=== PATIENT | female | born 2000 | race Caucasian/White ===

== ENCOUNTER 2022-10-10 14:59 | Inpatient (IN) ==
--- NOTE | 2022-10-10 15:08 | ED Triage Note ---
Date of Service October 10, 2022 History of Present Illness This patient was briefly evaluated while in triage. An abbreviated physical exam was performed. This patient is a 22-year-old Female who presents to the ED for evaluation of lower abdominal pain with vomiting and diarrhea. Symptoms started yesterday. Reports chills, no fevers. Denies sick contacts or changes in diet. LMP 1 week ago. Denies chance of . Physical Exam Constitutional: alert and oriented x3. no acute distress. HEENT: normocephalic, atraumatic. normal conjunctiva.EOM's grossly intact. Respiratory: lungs are clear to auscultation without wheezes, rhonchi, or rales bilaterally. equal chest rise. normal respiratory effort, no accessory muscle use. Cardiovascular: normal heart sounds without murmur. regular rate and rhythm. GI: abdomen is soft, nondistended. RLQ tenderness. No palpable masses. No rebound tenderness or guarding. No CVA tenderness Peripheral vascular: extremities warm and well perfused Psych:appropriate mood and affect. Initial orders for labs and / or imaging were placed and patient was placed in the waiting area until a bed is available. Please see further documentation for the full ED course.
[2022-10-10] MEDS ORDERED: MoRPHine SULFATE 4 MG/ML 1 ML CARP\\VIAL IV STA ×2 (15:57→17:54)
[2022-10-10] MEDS ORDERED: SODIUM CHLORIDE 0.9% 1000ML 1,000 ML IV ONE (15:57)
[2022-10-10] MEDS ORDERED: ONDANSETRON INJ 2 MG/ML 2 ML VIAL IV STA (15:57)
--- NOTE | 2022-10-10 16:00 | Emergency Department Note ---
Impression & Plan Acute perforated appendicitis, Right lower quadrant abdominal pain, Leukocytosis ED Provider Note HISTORY OF PRESENT ILLNESS: Patient is a 22-year-old female presenting with right lower quadrant abdominal pain, vomiting and diarrhea. Patient reports she started having vomiting and loose stools starting yesterday. Has developed sharp, constant pain in her right lower quadrant. Denies any history of abdominal surgeries. Reports has been unable to tolerate oral intake in the last 24 hours. Denies any chest pain or shortness of breath. Denies any dysuria or hematuria. ROS: as above PHYSICAL EXAM: Constitutional: Patient appears in no acute distress. HENT: Head: Normocephalic and atraumatic. Eyes: EOMI, PERRL Mouth/Throat: Mucous membranes dry Neck: Trachea midline. Neck supple. Cardiovascular: RRR, No murmurs, rubs or gallops. Intact distal pulses. Pulmonary/Chest: No respiratory distress. Breath sounds clear and equal bilaterally. No wheezes or rales. Abdominal: BS +. Abdomen soft, no rebound or guarding. RLQ TTP Musculoskeletal: No edema, tenderness or deformity noted. Skin: Warm and dry. No rash, erythema, pallor or cyanosis Neurological: Alert and keenly responsive. CN II-XII grossly intact, moving all extremities equally and fully. MDM: - Vitals signs showed borderline tachycardia - History obtained via patient. Patient presents with right lower quadrant abdominal pain, vomiting and diarrhea. Symptoms started yesterday. Has been unable to tolerate oral intake in the last 24 hours. Locates pain to the right lower quadrant and describes it is constant in nature. - Chronic conditions affecting care: depression - Differential diagnoses include, but are not limited to: appendicitis; diverticulitis; ectopic ; ovarian cyst; ovarian torsion; ureteral calculi - Order placed for continuous cardiac monitoring. At this time, monitor showed rate of 98 bpm with normal sinus rhythm, per my interpretation. - External medical records reviewed. Showed [EMS sheet, outpt notes, outpt imaging] - Laboratory workup interpreted by myself showed leukocytosis (WBC 21.18) with left shift; hypokalemia (K 3.4); normal lipase - CT abdomen/pelvis with IV contrast showed perforated appendicitis. - Patient started on IV zosyn. - Given 1L NS, 4 mg IV morphine and 4 mg IV zofran for symptomatic management. On reassessment, pain is coming back. Given 50 mcg IV fentanyl. - Discussed case with general surgeon photovoltaic fabrication technician, Dr. Lara. Plans to take patient to OR. ASSESSMENT AND PLAN: Diagnosis: RLQ abdominal pain; leukocytosis; perforated appendicitis Plan: to OR Past Med/Surg History Medical History No chronic diseases present Surgical History No significant past surgical history Social History Smoking Status: Never smoker Preferred Language: Spanish Feels Safe at Home: Yes Allergies Allergies Allergy/AdvReac Type Severity Reaction Status Date / Time No Known Allergies Allergy Unverified 10/10/22 15:55 Home Meds Home Medications Medication Instructions Recorded Confirmed bupropion HCl 150 mg 24 hr tablet, 150 mg PO QAM 10/10/22 10/10/22 extended release duloxetine 20 mg capsule,delayed 20 mg PO BID 10/10/22 10/10/22 release hydroxyzine pamoate 25 mg capsule 25 mg PO HS 10/10/22 10/10/22 Results & Data (ED) Vital Signs Vital Signs - 24 hr 10/10/22 15:05 10/10/22 15:08 10/10/22 15:08 Temperature 37.5 C Temperature Source Temporal Artery Scan Pulse Rate 92 H 80 Pulse Rate [Apical] 76 Respiratory Rate 20 18 18 Respiratory Effort / Characteristics Non-Labored Spontaneous Respiratory Depth Normal Blood Pressure 127/79 Blood Pressure [Left Arm] 103/78 Blood Pressure Mean 95 Blood Pressure Mean [Left Arm] 86 Pulse Oximetry 97 99 98 Oxygen Delivery Method Room Air Sepsis New/Unexplained Change in Mental Status No Sepsis Action Taken by Nursing No Action Required 10/10/22 15:09 10/10/22 17:25 10/10/22 16:18 Temperature Temperature Source Pulse Rate 80 Pulse Rate [Apical] 77 73 Respiratory Rate 18 18 Respiratory Effort / Characteristics Respiratory Depth Blood Pressure Blood Pressure [Left Arm] 124/72 124/72 Blood Pressure Mean Blood Pressure Mean [Left Arm] 89 89 Pulse Oximetry 99 99 Oxygen Delivery Method Room Air Sepsis New/Unexplained Change in Mental Status Sepsis Action Taken by Nursing Laboratory Data 10/10/22 15:27 10/10/22 15:27 Lab Results 10/10/22 10/10/22 10/10/22 Range/Units 15:09 15:27 15:27 WBC 21.18 H (4.8-10.8) K/ul RBC 4.29 (4.20-5.40) M/uL Hgb 13.0 (12.0-16.0) g/dl Hct 38.4 (37.0-47.0) % MCV 89.5 (80.0-100.0) fL MCH 30.3 (25.0-34.0) pg MCHC 33.9 (32.0-36.0) g/dL RDW Std Deviation 39.2 (36.4-46.3) fL RDW Coeff of Janny 12.1 (11.5-14.5) % Plt Count 279 (130-400) K/uL MPV 11.4 (9.4-12.4) fL Immature Gran % (Auto) 0.5 % Neut % (Auto) 87.7 % Lymph % (Auto) 5.8 % Irion % (Auto) 5.8 % Eos % (Auto) 0.0 % Baso % (Auto) 0.2 % Neut # (Auto) 18.59 H (1.40-6.50) K/uL Lymph # (Auto) 1.22 (1.2-3.4) K/uL Irion # (Auto) 1.22 H (0.11-0.59) K/uL Eos # (Auto) 0.00 (0-0.50) K/uL Baso # (Auto) 0.04 (0-0.2) K/uL Immature Gran # (Auto) 0.11 (0.01-0.20) K/uL Sodium 135 L (136-145) mmol/L Potassium 3.4 L (3.5-5.1) mmol/L Chloride 102 (98-107) mmol/L Carbon Dioxide 24 (21-32) mmol/L Anion Gap 9 (3-11) BUN 9 (6-23) mg/dl Creatinine 0.81 (0.6-1.2) mg/dl Est Cr Clr Drug Dosing 111.7 ml/min Est GFR ( Amer) 118.6 ml/min Est GFR (Non-Af Amer) 102.4 ml/min BUN/Creatinine Ratio 11.1 (10-20) Glucose 98 (70-99(Fasting)) mg/dl Calcium 9.4 (8.6-10.3) mg/dl Total Bilirubin 0.7 (0.2-1.0) mg/dl AST 17 (13-39) U/L ALT 14 (7-52) U/L Alkaline Phosphatase 68 (34-104) U/L Total Protein 7.9 (6.0-8.3) gm/dl Albumin 4.7 (3.4-5.0) gm/dl Globulin 3.2 (2.5-4.0) gm/dl Albumin/Globulin Ratio 1.5 (0.9-2) Lipase 36 (11-82) U/L Urine Color Urine Appearance (Clear) Urine pH (4.5-7.5) Ur Specific Kendrick (1.000-1.030) Urine Protein (Negative) Urine Glucose (UA) (Negative) Urine Ketones (Negative) Urine Blood (Negative) Urine Nitrite (Negative) Urine Bilirubin (Negative) Urine Urobilinogen (Negative) Ur Leukocyte Esterase (Negative) Urine WBC (Auto) (0-5) /hpf Urine RBC (Auto) (0-4) /hpf U Hyaline Cast (Auto) (0-5) /lpf U Epithel Cells (Auto) (0-5) /lpf Urine Bacteria (Auto) (Negative) POC Ur Test NEG (NEG) 10/10/22 Range/Units 17:05 WBC (4.8-10.8) K/ul RBC (4.20-5.40) M/uL Hgb (12.0-16.0) g/dl Hct (37.0-47.0) % MCV (80.0-100.0) fL MCH (25.0-34.0) pg MCHC (32.0-36.0) g/dL RDW Std Deviation (36.4-46.3) fL RDW Coeff of Janny (11.5-14.5) % Plt Count (130-400) K/uL MPV (9.4-12.4) fL Immature Gran % (Auto) % Neut % (Auto) % Lymph % (Auto) % Irion % (Auto) % Eos % (Auto) % Baso % (Auto) % Neut # (Auto) (1.40-6.50) K/uL Lymph # (Auto) (1.2-3.4) K/uL Irion # (Auto) (0.11-0.59) K/uL Eos # (Auto) (0-0.50) K/uL Baso # (Auto) (0-0.2) K/uL Immature Gran # (Auto) (0.01-0.20) K/uL Sodium (136-145) mmol/L Potassium (3.5-5.1) mmol/L Chloride (98-107) mmol/L Carbon Dioxide (21-32) mmol/L Anion Gap (3-11) BUN (6-23) mg/dl Creatinine (0.6-1.2) mg/dl Est Cr Clr Drug Dosing ml/min Est GFR ( Amer) ml/min Est GFR (Non-Af Amer) ml/min BUN/Creatinine Ratio (10-20) Glucose (70-99(Fasting)) mg/dl Calcium (8.6-10.3) mg/dl Total Bilirubin (0.2-1.0) mg/dl AST (13-39) U/L ALT (7-52) U/L Alkaline Phosphatase (34-104) U/L Total Protein (6.0-8.3) gm/dl Albumin (3.4-5.0) gm/dl Globulin (2.5-4.0) gm/dl Albumin/Globulin Ratio (0.9-2) Lipase (11-82) U/L Urine Color Yellow Urine Appearance Cloudy A (Clear) Urine pH 7.0 (4.5-7.5) Ur Specific Kendrick 1.019 (1.000-1.030) Urine Protein Negative (Negative) Urine Glucose (UA) Negative (Negative) Urine Ketones 3+ H (Negative) Urine Blood Negative (Negative) Urine Nitrite Negative (Negative) Urine Bilirubin Negative (Negative) Urine Urobilinogen Negative (Negative) Ur Leukocyte Esterase 1+ H (Negative) Urine WBC (Auto) 10-30 H (0-5) /hpf Urine RBC (Auto) 0-4 (0-4) /hpf U Hyaline Cast (Auto) 1-5 (0-5) /lpf U Epithel Cells (Auto) >30 H (0-5) /lpf Urine Bacteria (Auto) 2+ H (Negative) POC Ur Test (NEG) Administered Medications Discontinued Medications Fentanyl Citrate (Fentanyl Citrate Pf 100 Mcg/2 Ml Vial) 50 mcg IV NOW ONE Stop: 10/10/22 17:09 Last Admin: 10/10/22 17:21 Dose: 50 mcg Documented By: LORIN Sodium Chloride (Nss 1000ml) 1,000 mls @ 999 mls/hr IV .Q1H1M ONE Stop: 10/10/22 16:57 Last Infusion: 10/10/22 17:35 Dose: 0 mls/hr Documented By: Admin: 10/10/22 16:01 Dose: 999 mls/hr Documented By: LORIN Piperacillin Sod/Tazobactam Sod (Zosyn) 4.5 gm in 120 mls @ 240 mls/hr IV NOW ONE Stop: 10/10/22 17:29 Last Infusion: 10/10/22 17:22 Dose: 0 mls/hr Documented By: Admin: 10/10/22 17:04 Dose: 240 mls/hr Documented By: LORIN Ioversol (Optiray 320 100ml) 83 ml IV ONCE ONE Stop: 10/10/22 16:43 Last Admin: 10/10/22 16:42 Dose: 83 ml Documented By: EMILIANO Morphine Sulfate (Morphine Sulfate 4 Mg/Ml 1 Ml Carp\Vial) 4 mg IV NOW STA Stop: 10/10/22 15:58 Last Admin: 10/10/22 16:01 Dose: 4 mg Documented By: LORIN Morphine Sulfate (Morphine Sulfate 4 Mg/Ml 1 Ml Carp\Vial) 4 mg IV NOW STA Stop: 10/10/22 17:55 Last Admin: 10/10/22 17:57 Dose: 4 mg Documented By: LORIN Ondansetron HCl (Ondansetron Inj 2 Mg/Ml 2 Ml Vial) 4 mg IV NOW STA Stop: 10/10/22 15:58 Last Admin: 10/10/22 16:01 Dose: 4 mg Documented By: LORIN Imaging Data Radiologist's Impression: Abdomen/Pelvis CT 10/10/22 15:57 CT SCAN OF THE ABDOMEN AND PELVIS WITH IV CONTRAST CLINICAL HISTORY: Right lower quadrant abdominal pain. Nausea and vomiting. Diarrhea. COMPARISON STUDY: Abdominal radiograph dated 04/23/2022. TECHNIQUE: Following the IV administration of 83 cc of Optiray 320, CT scan of the abdomen and pelvis is performed from the lung bases to the proximal femora. Images are reviewed in the axial, sagittal, and coronal planes. IV contrast was administered without complication. A dose lowering technique was utilized adhering to the principles of ALARA. CT DOSE: 926.50 mGy.cm FINDINGS: Lung bases: The heart is normal in size and without pericardial effusion. The lung bases are clear. Liver: The contrast-enhanced liver is normal in size, contour, and attenuation. Fatty infiltration is seen adjacent to the gallbladder fossa. There is no intrahepatic biliary ductal dilatation. The hepatic veins and portal veins are patent. Gallbladder: Unremarkable. Spleen: Normal in size and attenuation. Pancreas: Unremarkable. Adrenal glands: Unremarkable. Kidneys: The contrast enhanced kidneys are normal in size and without hydronephrosis. The kidneys enhance symmetrically. Abdominal vasculature: The abdominal aorta is normal in course and caliber. Bowel: There is no bowel obstruction. A calcified appendicolith is seen on image #244. The distal appendix is distended and fluid-filled, measuring up to 1.8 cm seen on image #257. The wall is thickened and hyperemic and there is surrounding inflammation and fluid. Findings are consistent acute appendicitis. There is discontinuity at the tip of the appendix seen on axial image #275. Findings are suspicious for perforation. There is free fluid in the presacral region with peritoneal thickening and enhancement. No organized/drainable fluid collection is seen to indicate abscess. Mild wall thickening of the sigmoid colon is likely related to adjacent appendicitis. Peritoneum: There is no intraperitoneal free air or abdominal ascites. There is a small fat-containing umbilical hernia. Lymphadenopathy: None. Pelvic viscera: The bladder and uterus are normal as visualized. There are bilateral ovarian follicles. An involuting follicle is suggested on the right. Free fluid is seen in the cul-de-sac. Skeletal structures: No lytic or blastic lesions are seen. IMPRESSION: 1. Severe acute appendicitis. 2. Findings are highly suspicious for perforation. 3. No intraperitoneal free air is identified. No organized/drainable fluid collection is seen to indicate abscess. 4. There is nonspecific free fluid in the pelvis with mild peritoneal thickening and enhancement. 5. Mild wall thickening of the sigmoid colon is likely related to adjacent appendicitis and surrounding inflammation. ACT 112: Negative or not required by law. Electronically signed by: Manuel Gee M.D. 10/10/2022 4:54 PM Discharge Plan Visit Data Chief Complaint: Abdominal Pain Stated Complaint: VOMITING,LOWER ABDOMINAL PAIN ED Provider: Dana Donohue Discharge Problem: Acute perforated appendicitis, Right lower quadrant abdominal pain, Leukocytosis Forms Stand Alone Forms: [facility] Prescriptions Prescriptions: No Action hydroxyzine pamoate 25 mg capsule 25 mg PO HS Rx Instructions: take 30 minutes before betime bupropion HCl 150 mg tablet extended release 24 hr 150 mg PO QAM duloxetine 20 mg capsule,delayed release(DR/EC) 20 mg PO BID Referrals Referrals: María May CRNP [Outside Practitioners] -
[2022-10-10 16:21] LABS: Basophils # (auto) 0.04 K/uL (0-0.2); Basophils % (auto) 0.2 %; Hematocrit (blood only) 38.4 % (37.0-47.0); Immature Granulocytes # (auto) 0.11 K/uL (0.01-0.20); Immature Granulocytes % (auto) 0.5 %; Lymphocytes # (auto) 1.22 K/uL (1.2-3.4); Lymphocytes % (auto) 5.8 %; Mean Corpuscular Hemoglobin 30.3 pg (25.0-34.0); Mean Corpuscular Hgb Conc 33.9 g/dL (32.0-36.0); Mean Corpuscular Volume 89.5 fL (80.0-100.0); Mean Platelet Volume 11.4 fL (9.4-12.4); Monocytes # (auto) 1.22 K/uL (0.11-0.59); Monocytes % (auto) 5.8 %; Neutrophils # (auto) 18.59 K/uL (1.40-6.50); Neutrophils % (auto) 87.7 %; Platelet Count 279 K/uL (130-400); RDW Coefficient of Variation 12.1 % (11.5-14.5); RDW Standard Deviation 39.2 fL (36.4-46.3); Red Blood Count 4.29 M/uL (4.20-5.40); White Blood Count 21.18 K/ul (4.8-10.8)
[2022-10-10 16:25] LABS: Albumin Globulin Ratio 1.5 (0.9-2); Albumin Level 4.7 gm/dl (3.4-5.0); BUN Creatinine Ratio 11.1 (10-20); Bilirubin,Total 0.7 mg/dl (0.2-1.0); Calcium 9.4 mg/dl (8.6-10.3); Creatinine Clr Calc Pharmacy 111.7 ml/min; Est GFR (African American) 118.6 ml/min; Est GFR (Non-African American) 102.4 ml/min; Globulin 3.2 gm/dl (2.5-4.0); Potassium 3.4 mmol/L (3.5-5.1); Total Protein 7.9 gm/dl (6.0-8.3)
[2022-10-10] MEDS ORDERED: OPTIRAY 320 100ml IV ONE (16:42)
--- NOTE | 2022-10-10 16:57 | CT Scan Report ---
CT SCAN OF THE ABDOMEN AND PELVIS WITH IV CONTRAST CLINICAL HISTORY: Right lower quadrant abdominal pain. Nausea and vomiting. Diarrhea. COMPARISON STUDY: Abdominal radiograph dated 04/23/2022. TECHNIQUE: Following the IV administration of 83 cc of Optiray 320, CT scan of the abdomen and pelvi s is performed from the lung bases to the proximal femora. Images are reviewed in the axial, sagittal , and coronal planes. IV contrast was administered without complication. A dose lowering technique wa s utilized adhering to the principles of ALARA. CT DOSE: 926.50 mGy.cm FINDINGS: Lung bases: The heart is normal in size and without pericardial effusion. The lung bases are clear. Liver: The contrast-enhanced liver is normal in size, contour, and attenuation. Fatty infiltration is seen adjacent to the gallbladder fossa. There is no intrahepatic biliary ductal dilatation. The hepa tic veins and portal veins are patent. Gallbladder: Unremarkable. Spleen: Normal in size and attenuation. Pancreas: Unremarkable. Adrenal glands: Unremarkable. Kidneys: The contrast enhanced kidneys are normal in size and without hydronephrosis. The kidneys enh ance symmetrically. Abdominal vasculature: The abdominal aorta is normal in course and caliber. Bowel: There is no bowel obstruction. A calcified appendicolith is seen on image #244. The distal fred endix is distended and fluid-filled, measuring up to 1.8 cm seen on image #257. The wall is thickened and hyperemic and there is surrounding inflammation and fluid. Findings are consistent acute appendi citis. There is discontinuity at the tip of the appendix seen on axial image #275. Findings are suspi cious for perforation. There is free fluid in the presacral region with peritoneal thickening and enh ancement. No organized/drainable fluid collection is seen to indicate abscess. Mild wall thickening o f the sigmoid colon is likely related to adjacent appendicitis. Peritoneum: There is no intraperitoneal free air or abdominal ascites. There is a small fat-containin g umbilical hernia. Lymphadenopathy: None. Pelvic viscera: The bladder and uterus are normal as visualized. There are bilateral ovarian follicle s. An involuting follicle is suggested on the right. Free fluid is seen in the cul-de-sac. Skeletal structures: No lytic or blastic lesions are seen. IMPRESSION: 1. Severe acute appendicitis. 2. Findings are highly suspicious for perforation. 3. No intraperitoneal free air is identified. No organized/drainable fluid collection is seen to lilia minna abscess. 4. There is nonspecific free fluid in the pelvis with mild peritoneal thickening and enhancement. 5. Mild wall thickening of the sigmoid colon is likely related to adjacent appendicitis and surroundi ng inflammation. ACT 112: Negative or not required by law. Electronically signed by: Manuel Gee M.D. 10/10/2022 4:54 PM
[2022-10-10] MEDS ORDERED: PIPERACILLIN/TAZOBACTAM 4.5 GM/120 ML BAG IV ONE (17:00)
[2022-10-10] MEDS ORDERED: fentaNYL citrate PF 100 MCG/2 ML VIAL IV ONE (17:08)
[2022-10-10 17:44] LABS: Appearance Urine Cloudy (Clear); Bacteria Urine Automated 2+ (Negative); Bilirubin Urine Negative (Negative); Blood Urine Negative (Negative); Color Urine Yellow; Epithelial Cell Urine Auto >30 /lpf (0-5); Glucose Urine UA Negative (Negative); Ketones Urine 3+ (Negative); Leukocyte Esterase Urine 1+ (Negative); Nitrite Urine Negative (Negative); Protein Urine Negative (Negative); RBC Urine Automated 0-4 /hpf (0-4); Specific Gravity Urine 1.019 (1.000-1.030); Urobilinogen Urine Negative (Negative)
--- NOTE | 2022-10-10 18:26 | Surgery Consultation ---
Date of Consultation October 10, 2022 Assessment & Plan (1) Acute perforated appendicitis: assessment: patient is a 22 year-old female who presented to ER with 2.5 days history RLQ pain with nausea and vomiting, WBC 21,000. CT scan diagnosis- severe acute appendicitis with appendicolith and perforation. IMP: severe acute appendicitis with perforation, peritenontitis Plan: based on patient's H/P, labs and CT scan finding. I recommend to do laparoscopic appendectomy, possible open, discussed with patient about benefits, risks and alternatives of the surgery, the risks may include but not limit such as - infection, bleeding, abscess, injury other organs, bowel obstruction, incisional hernia and sepsis. patient understood, she agreed with surgery, she signed informed consent. I answered all questions, pre-op iv antibiotic. History of Present Illness Reason for Consultation: acute appendicitis with perforation Requesting Physician: Debo Barker PA-C History of Present Illness CC: acute abdominal pain HPI: patient is a 22 year-old female with no significant past medical history, who presented to ER with 2.5 days history RLQ pain with nausea and vomiting loose stool, the pain is sharp at RLQ area. the pain is not radiate to back. last intake food early this morning. fever 37.5, patient denies chest pain, no chills, no dysuria. at ER labs- WBC 21,000. and CT scan, diagnosis-acute appendicitis with appendicolith, possible perforation. I reviewed the review of systems, no significant abnormal as HPI stated. Allergies Allergy/AdvReac Type Severity Reaction Status Date / Time No Known Allergies Allergy Unverified 10/10/22 15:55 Home Medications Medication Instructions Recorded Confirmed Type bupropion HCl 150 mg 24 hr tablet, 150 mg PO QAM 10/10/22 10/10/22 History extended release duloxetine 20 mg capsule,delayed 20 mg PO BID 10/10/22 10/10/22 History release hydroxyzine pamoate 25 mg capsule 25 mg PO HS 10/10/22 10/10/22 History Patient History Medical History No chronic diseases present Surgical History No significant past surgical history Social History Smoking Status: Never smoker Preferred Language: Irish Feels Safe at Home: Yes Physical Exam Constitutional: WD/WN, vitals as above in distress. severe pain at RLQ Eyes: PERRL, conjunctivae normal, anicteric sclerae Neck: trachea midline, no thyromegaly Respiratory: normal respiratory effort, lungs clear to auscultation Cardiovascular: RRR, no murmur, no edema Gastrointestinal (Abdomen): soft, significant tenderness at RLQ with rebound pain, no distend, BS -. Musculoskeletal: no cyanosis or clubbing, extremities motor strength 5/5 Skin: no rashes, warm and dry Neurologic: patellar DTR's 2+ bilat, sensation intact Psychiatric: A+Ox3, euthymic affect Results & Data Vital Signs (Past 12 Hours) Vital Signs Temp Pulse Pulse Resp BP BP Pulse Ox 10/10/22 16:18 80 10/10/22 17:25 73 18 124/72 99 10/10/22 15:09 77 18 124/72 99 10/10/22 15:08 80 18 98 10/10/22 15:08 76 18 103/78 99 10/10/22 15:05 37.5 C 92 H 20 127/79 97 O2 Del Method 10/10/22 16:18 10/10/22 17:25 Room Air 10/10/22 15:09 10/10/22 15:08 10/10/22 15:08 10/10/22 15:05 Room Air Laboratory Results Lab Results 10/10/22 10/10/22 10/10/22 Range/Units 15:09 15:27 15:27 WBC 21.18 H (4.8-10.8) K/ul RBC 4.29 (4.20-5.40) M/uL Hgb 13.0 (12.0-16.0) g/dl Hct 38.4 (37.0-47.0) % MCV 89.5 (80.0-100.0) fL MCH 30.3 (25.0-34.0) pg MCHC 33.9 (32.0-36.0) g/dL RDW Std Deviation 39.2 (36.4-46.3) fL RDW Coeff of Janny 12.1 (11.5-14.5) % Plt Count 279 (130-400) K/uL MPV 11.4 (9.4-12.4) fL Immature Gran % (Auto) 0.5 % Neut % (Auto) 87.7 % Lymph % (Auto) 5.8 % [place] % (Auto) 5.8 % Eos % (Auto) 0.0 % Baso % (Auto) 0.2 % Neut # (Auto) 18.59 H (1.40-6.50) K/uL Lymph # (Auto) 1.22 (1.2-3.4) K/uL [place] # (Auto) 1.22 H (0.11-0.59) K/uL Eos # (Auto) 0.00 (0-0.50) K/uL Baso # (Auto) 0.04 (0-0.2) K/uL Immature Gran # (Auto) 0.11 (0.01-0.20) K/uL Sodium 135 L (136-145) mmol/L Potassium 3.4 L (3.5-5.1) mmol/L Chloride 102 (98-107) mmol/L Carbon Dioxide 24 (21-32) mmol/L Anion Gap 9 (3-11) BUN 9 (6-23) mg/dl Creatinine 0.81 (0.6-1.2) mg/dl Est Cr Clr Drug Dosing 111.7 ml/min Est GFR ( Amer) 118.6 ml/min Est GFR (Non-Af Amer) 102.4 ml/min BUN/Creatinine Ratio 11.1 (10-20) Glucose 98 (70-99(Fasting)) mg/dl Calcium 9.4 (8.6-10.3) mg/dl Total Bilirubin 0.7 (0.2-1.0) mg/dl AST 17 (13-39) U/L ALT 14 (7-52) U/L Alkaline Phosphatase 68 (34-104) U/L Total Protein 7.9 (6.0-8.3) gm/dl Albumin 4.7 (3.4-5.0) gm/dl Globulin 3.2 (2.5-4.0) gm/dl Albumin/Globulin Ratio 1.5 (0.9-2) Lipase 36 (11-82) U/L Urine Color Urine Appearance (Clear) Urine pH (4.5-7.5) Ur Specific [place] (1.000-1.030) Urine Protein (Negative) Urine Glucose (UA) (Negative) Urine Ketones (Negative) Urine Blood (Negative) Urine Nitrite (Negative) Urine Bilirubin (Negative) Urine Urobilinogen (Negative) Ur Leukocyte Esterase (Negative) Urine WBC (Auto) (0-5) /hpf Urine RBC (Auto) (0-4) /hpf U Hyaline Cast (Auto) (0-5) /lpf U Epithel Cells (Auto) (0-5) /lpf Urine Bacteria (Auto) (Negative) POC Ur Test NEG (NEG) 10/10/22 Range/Units 17:05 WBC (4.8-10.8) K/ul RBC (4.20-5.40) M/uL Hgb (12.0-16.0) g/dl Hct (37.0-47.0) % MCV (80.0-100.0) fL MCH (25.0-34.0) pg MCHC (32.0-36.0) g/dL RDW Std Deviation (36.4-46.3) fL RDW Coeff of Janny (11.5-14.5) % Plt Count (130-400) K/uL MPV (9.4-12.4) fL Immature Gran % (Auto) % Neut % (Auto) % Lymph % (Auto) % [place] % (Auto) % Eos % (Auto) % Baso % (Auto) % Neut # (Auto) (1.40-6.50) K/uL Lymph # (Auto) (1.2-3.4) K/uL [place] # (Auto) (0.11-0.59) K/uL Eos # (Auto) (0-0.50) K/uL Baso # (Auto) (0-0.2) K/uL Immature Gran # (Auto) (0.01-0.20) K/uL Sodium (136-145) mmol/L Potassium (3.5-5.1) mmol/L Chloride (98-107) mmol/L Carbon Dioxide (21-32) mmol/L Anion Gap (3-11) BUN (6-23) mg/dl Creatinine (0.6-1.2) mg/dl Est Cr Clr Drug Dosing ml/min Est GFR ( Amer) ml/min Est GFR (Non-Af Amer) ml/min BUN/Creatinine Ratio (10-20) Glucose (70-99(Fasting)) mg/dl Calcium (8.6-10.3) mg/dl Total Bilirubin (0.2-1.0) mg/dl AST (13-39) U/L ALT (7-52) U/L Alkaline Phosphatase (34-104) U/L Total Protein (6.0-8.3) gm/dl Albumin (3.4-5.0) gm/dl Globulin (2.5-4.0) gm/dl Albumin/Globulin Ratio (0.9-2) Lipase (11-82) U/L Urine Color Yellow Urine Appearance Cloudy A (Clear) Urine pH 7.0 (4.5-7.5) Ur Specific [place] 1.019 (1.000-1.030) Urine Protein Negative (Negative) Urine Glucose (UA) Negative (Negative) Urine Ketones 3+ H (Negative) Urine Blood Negative (Negative) Urine Nitrite Negative (Negative) Urine Bilirubin Negative (Negative) Urine Urobilinogen Negative (Negative) Ur Leukocyte Esterase 1+ H (Negative) Urine WBC (Auto) 10-30 H (0-5) /hpf Urine RBC (Auto) 0-4 (0-4) /hpf U Hyaline Cast (Auto) 1-5 (0-5) /lpf U Epithel Cells (Auto) >30 H (0-5) /lpf Urine Bacteria (Auto) 2+ H (Negative) POC Ur Test (NEG) Diagnostic Findings CT SCAN OF THE ABDOMEN AND PELVIS WITH IV CONTRAST CLINICAL HISTORY: Right lower quadrant abdominal pain. Nausea and vomiting. Diarrhea. COMPARISON STUDY: Abdominal radiograph dated 04/23/2022. TECHNIQUE: Following the IV administration of 83 cc of Optiray 320, CT scan of the abdomen and pelvis is performed from the lung bases to the proximal femora. Images are reviewed in the axial, sagittal, and coronal planes. IV contrast was administered without complication. A dose lowering technique was utilized adhering to the principles of ALARA. CT DOSE: 926.50 mGy.cm FINDINGS: Lung bases: The heart is normal in size and without pericardial effusion. The lung bases are clear. Liver: The contrast-enhanced liver is normal in size, contour, and attenuation. Fatty infiltration is seen adjacent to the gallbladder fossa. There is no intrahepatic biliary ductal dilatation. The hepatic veins and portal veins are patent. Gallbladder: Unremarkable. Spleen: Normal in size and attenuation. Pancreas: Unremarkable. Adrenal glands: Unremarkable. Kidneys: The contrast enhanced kidneys are normal in size and without hydronephrosis. The kidneys enhance symmetrically. Abdominal vasculature: The abdominal aorta is normal in course and caliber. Bowel: There is no bowel obstruction. A calcified appendicolith is seen on image #244. The distal appendix is distended and fluid-filled, measuring up to 1.8 cm seen on image #257. The wall is thickened and hyperemic and there is surrounding inflammation and fluid. Findings are consistent acute appendicitis. There is discontinuity at the tip of the appendix seen on axial image #275. Findings are suspicious for perforation. There is free fluid in the presacral region with peritoneal thickening and enhancement. No organized/drainable fluid collection is seen to indicate abscess. Mild wall thickening of the sigmoid colon is likely related to adjacent appendicitis. Peritoneum: There is no intraperitoneal free air or abdominal ascites. There is a small fat-containing umbilical hernia. Lymphadenopathy: None. Pelvic viscera: The bladder and uterus are normal as visualized. There are bilateral ovarian follicles. An involuting follicle is suggested on the right. Free fluid is seen in the cul-de-sac. Skeletal structures: No lytic or blastic lesions are seen. IMPRESSION: 1. Severe acute appendicitis. 2. Findings are highly suspicious for perforation. 3. No intraperitoneal free air is identified. No organized/drainable fluid col lection is seen to indicate abscess. 4. There is nonspecific free fluid in the pelvis with mild peritoneal thickening and enhancement. 5. Mild wall thickening of the sigmoid colon is likely related to adjacent appendicitis and surrounding inflammation.
[2022-10-10] MEDS ORDERED: LIDOCAINE 2% 2 ML VIAL/AMP(20MG/ML) INFIL ONE ×2 (18:37→18:52)
[2022-10-10] MEDS ORDERED: ROCURONIUM BROMIDE 10 MG/ML 5 ML VIAL IV ONE (18:37)
[2022-10-10] MEDS ORDERED: fentaNYL citrate PF 100 MCG/2 ML VIAL ONE ×2 (18:37→18:52)
[2022-10-10] MEDS ORDERED: MIDAZOLAM HCL 1 MG/ML 2ML VIAL ONE ×2 (18:37→18:52)
[2022-10-10] MEDS ORDERED: DEXAMETHASONE SOD INJ 4 MG/ML VIAL ONE (18:37)
[2022-10-10] MEDS ORDERED: ONDANSETRON INJ 2 MG/ML 2 ML VIAL ONE (18:37)
[2022-10-10] MEDS ORDERED: PROPOFOL IV EMULSION 10 MG/ML 20 ML VIAL IV ONE ×2 (18:37→18:52)
--- NOTE | 2022-10-10 18:37 | History & Physical Bridge Note ---
Date of Service October 10, 2022 History & Physical Bridge Note I have examined the patient, reviewed the History & Physical and in the interval since the performance of the History & Physical I have noted the following changes of clinical significance: no changes noted
[2022-10-10] MEDS ORDERED: LIDOCAINE 1% LOCAL 20 ML VIAL ONE (18:52)
[2022-10-10] MEDS ORDERED: BUPIVACAINE 0.5 % 5 MG/1 ML MPF 30ML VIAL ONE (18:52)
[2022-10-10] MEDS ORDERED: BACITRACIN OINT 15 GM TUBE ONE (18:52)
[2022-10-10] MEDS ORDERED: VANCOMYCIN HCL 1000MG/20ML VIAL ONE (18:53)
--- NOTE | 2022-10-10 19:09 | Anesthesiology Consultation ---
Date of Service October 10, 2022 Assessment & Plan Chart Review Chart Review: Acceptable Risk for Surgery Consults Requested none History Surgery Operation Date: 10/10/22 19:20 Proposed Procedures p Operative Laparoscopic - Brittany Lara MD Height/Weight Height: 5 ft 6 in Weight: 74.8 kg Allergies Allergy/AdvReac Type Severity Reaction Status Date / Time No Known Allergies Allergy Unverified 10/10/22 18:47 Medications Home Medications Medication Instructions Recorded Confirmed Last Taken bupropion HCl 150 mg 24 hr tablet, 150 mg PO QAM 10/10/22 10/10/22 Unknown extended release duloxetine 20 mg capsule,delayed 20 mg PO BID 10/10/22 10/10/22 Unknown release NPO Date Last Intake of Fluids: 10/08/22 Time Last Intake of Fluids: 22:00 Date Last Intake of Solids: 10/10/22 Time Last Intake of Solids: 11:00 Last Intake of Solids Comment: SIPS Past Medical History Medical History No chronic diseases present Past Surgical History Surgical History (Updated 10/10/22 @ 18:50 by Tyson Blanchard RN) No significant past surgical history [place] teeth extracted Social History Smoking Status: Never smoker Physical Exam Vital Signs Last Vital Signs Temp 38.3 C H 10/10/22 18:40 Pulse 74 10/10/22 18:45 Resp 18 10/10/22 18:45 BP 101/72 10/10/22 18:45 Pulse Ox 98 10/10/22 18:45 O2 Del Method Room Air 10/10/22 18:45 Testing Laboratory Results 10/10/22 15:27 10/10/22 15:27 Urine Color Yellow 10/10/22 17:05 Urine Appearance Cloudy (Clear) A 10/10/22 17:05 Urine pH 7.0 (4.5-7.5) 10/10/22 17:05 Ur Specific [place] 1.019 (1.000-1.030) 10/10/22 17:05 Urine Protein Negative (Negative) 10/10/22 17:05 Urine Glucose (UA) Negative (Negative) 10/10/22 17:05 Urine Ketones 3+ (Negative) H 10/10/22 17:05 Urine Nitrite Negative (Negative) 10/10/22 17:05 Ur Leukocyte Esterase 1+ (Negative) H 10/10/22 17:05 Urine WBC (Auto) 10-30 /hpf (0-5) H 10/10/22 17:05 Urine RBC (Auto) 0-4 /hpf (0-4) 10/10/22 17:05 U Hyaline Cast (Auto) 1-5 /lpf (0-5) 10/10/22 17:05 U Epithel Cells (Auto) >30 /lpf (0-5) H 10/10/22 17:05 Urine Bacteria (Auto) 2+ (Negative) H 10/10/22 17:05 10/10/22 15:09 POC Ur Test NEG
[2022-10-10] MEDS ORDERED: ATROPINE SULFATE 0.1 MG/ML 10ML SYR IV PRN (19:10)
[2022-10-10] MEDS ORDERED: ONDANSETRON INJ 2 MG/ML 2 ML VIAL IV PRN ×2 (19:10→22:27)
[2022-10-10] MEDS ORDERED: fentaNYL citrate PF 100 MCG/2 ML VIAL IV PRN (19:10)
[2022-10-10] MEDS ORDERED: HYDROmorphone INJ 2 MG/ML SYR/VIAL IV PRN (19:10)
[2022-10-10] MEDS ORDERED: PROMETHAZINE HCL 12.5 MG in SODIUM CHLORIDE 0.9% 50 ML IV PRN (19:10)
[2022-10-10] MEDS ORDERED: ePHEDrine sulfate 50 MG/ML AMP IV PRN (19:10)
[2022-10-10] MEDS ORDERED: NEOSTIGMINE METHYLSULFATE 1 MG/ML 10ML VIAL ONE (21:00)
[2022-10-10] MEDS ORDERED: GLYCOPYRROLATE 0.2 MG/ML VIAL ONE (21:00)
--- NOTE | 2022-10-10 21:13 | Post Operative Brief Note ---
Immediate Post Op Note v1 Date of Surgery October 10, 2022 Pre & Post Diagnosis Operation Date: 10/10/22 19:20 Pre-Op Diagnosis: Acute perforated appendicitis Post-Op Diagnosis: Acute perforated appendicitis I identified the patient and participated in the time-out.: Yes Procedure Operation Date: 10/10/22 19:20 Actual Procedures p Laparoscopic Appendectomy(Not Applicable) - Brittany Lara MD Surgeon Brittany Lara MD [employer] surgical services coordinator Estimated Blood Loss 10 Findings Consistent with Post-Op Diagnosis perforated appendicitis Fluids 800ml Specimens appendix Drains Tamayo Catheter (16fr tamayo inserted by Nina Machado RN, following induction without difficulty; monitored by anesthesia) and [place]-Jeronimo Drain Anesthesia Type General Complications none Disposition Accompanied Patient To Recovery: Yes
--- NOTE | 2022-10-10 21:47 | Anesthesiology Progress Note ---
Date of Service October 10, 2022 Anesthesia Post Procedure Vital Signs Vital Signs: Temp Pulse Pulse Resp BP BP Pulse Ox 10/10/22 18:45 74 18 101/72 98 10/10/22 18:40 38.3 C H 82 20 101/72 99 10/10/22 16:18 80 10/10/22 17:25 73 18 124/72 99 10/10/22 15:09 77 18 124/72 99 10/10/22 15:08 80 18 98 10/10/22 15:08 76 18 103/78 99 10/10/22 15:05 37.5 C 92 H 20 127/79 97 O2 Del Method 10/10/22 18:45 Room Air 10/10/22 18:40 Room Air 10/10/22 16:18 10/10/22 17:25 Room Air 10/10/22 15:09 10/10/22 15:08 10/10/22 15:08 10/10/22 15:05 Room Air Pain Intensity Abdomen: Pain Intensity: 6 Transfer of Care Handoff Completed per policy Notes Mental Status: alert / awake / arousable and participated in evaluation Patient Amnestic to Procedure: Yes Nausea / Vomiting: adequately controlled Pain: adequately controlled Airway Patency, RR, SpO2: stable & adequate BP & HR: stable & adequate Hydration State: stable & adequate Anesthetic Complications: no major complications apparent
[2022-10-10] MEDS: HYDROmorphone INJ 0.5 MG/0.5 ML SYR IV PRN (23:16)
[2022-10-10] MEDS: LACTATED RINGER'S 1,000 ML IV SCH (23:16)
[2022-10-11] MEDS: PIPERACILLIN/TAZOBACTAM 4.5 GM in DEXTROSE 5% 100 ML IV SCH ×4 (00:23→23:40)
[2022-10-11] MEDS: oxyCODONE/ACETAMINOPHEN 5mg/325mg TAB PO PRN ×5 (00:29→23:40)
[2022-10-11] MEDS: HYDROmorphone INJ 0.5 MG/0.5 ML SYR IV PRN ×4 (06:14→21:43)
[2022-10-11 07:29] LABS: Hemoglobin 11.2 g/dl (12.0-16.0); Mean Corpuscular Hemoglobin 30.6 pg (25.0-34.0); Mean Corpuscular Hgb Conc 33.9 g/dL (32.0-36.0); Mean Corpuscular Volume 90.2 fL (80.0-100.0); Mean Platelet Volume 11.3 fL (9.4-12.4); Platelet Count 218 K/uL (130-400); RDW Coefficient of Variation 12.3 % (11.5-14.5); RDW Standard Deviation 40.2 fL (36.4-46.3); Red Blood Count 3.66 M/uL (4.20-5.40); White Blood Count 17.24 K/ul (4.8-10.8)
[2022-10-11 07:46] LABS: Albumin Globulin Ratio 1.4 (0.9-2); Albumin Level 3.6 gm/dl (3.4-5.0); BUN Creatinine Ratio 8.9 (10-20); Bilirubin,Total 0.6 mg/dl (0.2-1.0); Calcium 8.6 mg/dl (8.6-10.3); Creatinine Clr Calc Pharmacy 114.5 ml/min; Est GFR (African American) 122.3 ml/min; Est GFR (Non-African American) 105.5 ml/min; Globulin 2.6 gm/dl (2.5-4.0); Potassium 3.9 mmol/L (3.5-5.1); Total Protein 6.2 gm/dl (6.0-8.3)
--- NOTE | 2022-10-11 07:50 | Operative Report (OR) ---
DATE OF SURGERY: 10/10/2022 PREOPERATIVE DIAGNOSIS: Perforated acute appendicitis. POSTOPERATIVE DIAGNOSIS: Perforated acute appendicitis. OPERATION: Laparoscopic appendectomy, JAE drainage x1. SURGEON: Brittany Lara MD ANESTHESIA: General. ESTIMATED BLOOD LOSS: About 10 mL. FINDINGS: Perforated acute appendicitis. Peritoneal fluid sent for culture. COMPLICATIONS: None. INDICATION: This is a 22-year-old female who presented to ED with 2.5 days history of acute right lower quadrant pain and the patient had CT scan diagnosis of acute appendicitis with perforation. I recommended to do a laparoscopic appendectomy, possible open. I did talk to the patient about the benefit, risk, alternate procedure. I indicated the risks may include, but not limited to, such as bleeding, infection, abscess, injury to other organs, bowel obstruction, sepsis, incisional hernia. The patient understands. She signed informed consent and I answered all questions. DETAILS OF PROCEDURE: After we identified the patient and verified the procedure, we brought the patient to the OR, put the patient in the supine position on the OR table. The patient received SCD on bilateral legs to prevent DVT. Also, patient received 4.5 grams of Zosyn IV for prophylactic antibiotic in the ER and the patient received general anesthesia without difficulty. Also, the patient received a Coker catheter insertion to drain the urine. Abdomen was prepped and draped in routine sterile fashion. After timeout, I injected the local anesthesia by using 1% lidocaine mixed with 0.5% Marcaine just above the umbilicus, then I made a small incision just above umbilicus, opened fascia, opened peritoneum. Under direct vision, put a Avni trocar in, connected to CO2 to create pneumoperitoneum, flow rate at 6 liters per minute, pressure not more than 14 mmHg. Once we got a nice pneumoperitoneum, we put a camera in, looked around the abdomen. The patient had purulent, yellow dark fluid in the pelvic area and at this moment, we put another two 5-mm trocars in the right lower quadrant area. After we examined, we found that the patient had perforation of acute appendicitis with significant inflammation. At this moment also we found that the patient had some inflammation of the small bowel near the appendix, because the perforation of appendicitis caused local inflammation on the small bowel. At this moment, we used the suction. The abdominal fluid was sent to culture. Then we mobilized the appendix by using Harmonic scalpel to take down the appendiceal and identified base of the appendix and junction between the appendix and cecum. Once confirmed the junction between appendix base and cecum, we chose 45 mm endo JOHNIE stapler for transection of the base of appendix. We checked the staple line intact. we completed the removing the whole appendix. At this moment, we took a picture to confirm no left stump of the appendix and then we used a catch bag to remove appendix through the catch bag. Once I removed the appendix, I examined the appendix, used scissor to open the appendix lumen, found the patient had about 1 x1 cm appendicolith inside the appendix lumen. Also we took a picture. Then the specimen was sent to pathology. At this moment, we reinserted the Avni trocar inside the abdomen and created pneumoperitoneum again, looked around the abdomen, the staple line intact, no leak. Then I used 1000 grams of vancomycin plus 1 liter of normal saline to flush the abdomen and pelvis area. Suctioned all the fluid until the flow was clear. At this moment, I decided to put one 10 mm flat JAE drainage near the cecum area. I used 3-0 nylon to fix the JAE drain on the skin. At this moment, we removed all trocars under direct vision. No active bleeding from the trocar sites. Pneumoperitoneum was released. Then, I closed the umbilical incision fascial layer by using 0 Vicryl [id number] x2, closed subcutaneous layer by using 2-0 Vicryl interruptedly, closed skin by using 4-0 Vicryl continuous running, closed another 5 mm trocar sites of skin only by using 4-0 Vicryl. Then, we put the dressing on. The patient tolerated the procedure well. All instrument, needle and sponge counts were correct x2 at the end of the case. The patient's Coker was removed and the patient was transferred to recovery room in stable condition. The specimen was sent to pathology. After the procedure, I did talk to the patient about the OR finding and procedure we did, she understand. Job ID: [id number] [facility]
[2022-10-11] MEDS: buPROPion XL 150 MG TABCR PO SCH (08:12)
[2022-10-11] MEDS: DULoxetine HCL 20 MG CAP PO SCH ×2 (08:12→21:43)
[2022-10-11 08:25] LABS: Basophils # (auto) 0.04 K/uL (0-0.2); Basophils % (auto) 0.2 %; Dohle Bodies Occasional; Immature Granulocytes # (auto) 0.04 K/uL (0.01-0.20); Immature Granulocytes % (auto) 0.2 %; Lymphocytes # (auto) 0.64 K/uL (1.2-3.4); Lymphocytes % (auto) 3.7 %; Monocytes % (auto) 7.5 %; Neutrophils # (auto) 15.22 K/uL (1.40-6.50); Neutrophils % (auto) 88.4 %
--- NOTE | 2022-10-11 09:56 | Surgery Progress Note ---
Date of Service October 11, 2022 Assessment & Plan (1) Acute perforated appendicitis: Plan: POD # 1 s/p laparoscopic appendectomy for perforated appendicitis with appendicolith afebrile, vss postop pain controlled precious drain with cloudy/serous/slightly purulent output no n,v Plan: Continue pain management as needed Continue IV Zosyn precious drain to bulb suction incentive spirometry and scds encouraged ambulating keep clears for now repeat am cbc Dr. Lara has seen and examined pt, agrees with above Admission and Anticipated Discharge Date Admission Date: October 10, 2022 Subjective feeling okay, sore at incision sites preoperative pain has resolved no n,v feeling slightly bloated tolerated clear liquids urinating without difficulty no chest pain or sob Physical Exam Constitutional: WD/WN, vitals as above cooperative and comfortable; no acute distress and not ill appearing Respiratory: normal respiratory effort; no respiratory distress Gastrointestinal (Abdomen): Inspection/Auscultation: abdomen normal to inspection, + abdomen distended (mildly distended), + abdominal surgical incision (covered with clean, intact, dry dressings), + abdominal surgical drain present (cloudy/purulent draining) and + hypoactive bowel sounds; + abnormal bowel sounds Percussion/Palpation: + abdomen tender (at incision sites and RLQ) and abdomen soft; no guarding, abdomen not rigid and abdomen not firm Skin: no rashes, warm and dry Psychiatric: A+Ox3, euthymic affect Results & Data Vital Signs (Past 12 Hours) Vital Signs Temp Pulse Pulse Resp BP Pulse Ox O2 Del Method 10/11/22 07:52 36.6 C 69 16 98/60 L 98 Room Air 10/11/22 01:20 37.3 C 79 16 104/63 96 Room Air 10/10/22 22:38 Room Air 10/10/22 22:38 Room Air 10/11/22 00:22 37.0 C 83 16 104/64 95 Room Air 10/10/22 23:24 36.9 C 83 16 103/61 96 Room Air 10/10/22 22:50 36.3 C L 85 16 107/60 94 Room Air 10/10/22 22:38 37.2 C 86 16 121/76 98 Room Air 10/10/22 22:31 37.2 C 86 16 121/76 98 Room Air Laboratory Results 10/11/22 10/11/22 10/10/22 Range/Units 06:34 06:34 17:06 WBC 17.24 H (4.8-10.8) K/ul RBC 3.66 L (4.20-5.40) M/uL Hgb 11.2 L (12.0-16.0) g/dl Hct 33.0 L (37.0-47.0) % MCV 90.2 (80.0-100.0) fL MCH 30.6 (25.0-34.0) pg MCHC 33.9 (32.0-36.0) g/dL RDW Std Deviation 40.2 (36.4-46.3) fL RDW Coeff of Janny 12.3 (11.5-14.5) % Plt Count 218 (130-400) K/uL MPV 11.3 (9.4-12.4) fL Immature Gran % (Auto) 0.2 % Neut % (Auto) 88.4 % Lymph % (Auto) 3.7 % [place] % (Auto) 7.5 % Eos % (Auto) 0.0 % Baso % (Auto) 0.2 % Neut # (Auto) 15.22 H (1.40-6.50) K/uL Lymph # (Auto) 0.64 L (1.2-3.4) K/uL [place] # (Auto) 1.30 H (0.11-0.59) K/uL Eos # (Auto) 0.00 (0-0.50) K/uL Baso # (Auto) 0.04 (0-0.2) K/uL Immature Gran # (Auto) 0.04 (0.01-0.20) K/uL Dohle Bodies Occasional Sodium 136 (136-145) mmol/L Potassium 3.9 (3.5-5.1) mmol/L Chloride 104 (98-107) mmol/L Carbon Dioxide 25 (21-32) mmol/L Anion Gap 7 (3-11) BUN 7 (6-23) mg/dl Creatinine 0.79 (0.6-1.2) mg/dl Est Cr Clr Drug Dosing 114.5 ml/min Est GFR ( Amer) 122.3 ml/min Est GFR (Non-Af Amer) 105.5 ml/min BUN/Creatinine Ratio 8.9 L (10-20) Glucose 116 H (70-99(Fasting)) mg/dl Calcium 8.6 (8.6-10.3) mg/dl Total Bilirubin 0.6 (0.2-1.0) mg/dl AST 12 L (13-39) U/L ALT 10 (7-52) U/L Alkaline Phosphatase 50 (34-104) U/L Total Protein 6.2 D (6.0-8.3) gm/dl Albumin 3.6 (3.4-5.0) gm/dl Globulin 2.6 (2.5-4.0) gm/dl Albumin/Globulin Ratio 1.4 (0.9-2) Lipase (11-82) U/L Urine Color Urine Appearance (Clear) Urine pH (4.5-7.5) Ur Specific [place] (1.000-1.030) Urine Protein (Negative) Urine Glucose (UA) (Negative) Urine Ketones (Negative) Urine Blood (Negative) Urine Nitrite (Negative) Urine Bilirubin (Negative) Urine Urobilinogen (Negative) Ur Leukocyte Esterase (Negative) Urine WBC (Auto) (0-5) /hpf Urine RBC (Auto) (0-4) /hpf U Hyaline Cast (Auto) (0-5) /lpf U Epithel Cells (Auto) (0-5) /lpf Urine Bacteria (Auto) (Negative) POC Ur Test (NEG) SARS-CoV-2, RNA, NAAT NEGATIVE (NEGATIVE) 10/10/22 10/10/22 10/10/22 Range/Units 17:05 15:27 15:27 WBC 21.18 H (4.8-10.8) K/ul RBC 4.29 (4.20-5.40) M/uL Hgb 13.0 (12.0-16.0) g/dl Hct 38.4 (37.0-47.0) % MCV 89.5 (80.0-100.0) fL MCH 30.3 (25.0-34.0) pg MCHC 33.9 (32.0-36.0) g/dL RDW Std Deviation 39.2 (36.4-46.3) fL RDW Coeff of Janny 12.1 (11.5-14.5) % Plt Count 279 (130-400) K/uL MPV 11.4 (9.4-12.4) fL Immature Gran % (Auto) 0.5 % Neut % (Auto) 87.7 % Lymph % (Auto) 5.8 % [place] % (Auto) 5.8 % Eos % (Auto) 0.0 % Baso % (Auto) 0.2 % Neut # (Auto) 18.59 H (1.40-6.50) K/uL Lymph # (Auto) 1.22 (1.2-3.4) K/uL [place] # (Auto) 1.22 H (0.11-0.59) K/uL Eos # (Auto) 0.00 (0-0.50) K/uL Baso # (Auto) 0.04 (0-0.2) K/uL Immature Gran # (Auto) 0.11 (0.01-0.20) K/uL Dohle Bodies Sodium 135 L (136-145) mmol/L Potassium 3.4 L (3.5-5.1) mmol/L Chloride 102 (98-107) mmol/L Carbon Dioxide 24 (21-32) mmol/L Anion Gap 9 (3-11) BUN 9 (6-23) mg/dl Creatinine 0.81 (0.6-1.2) mg/dl Est Cr Clr Drug Dosing 111.7 ml/min Est GFR ( Amer) 118.6 ml/min Est GFR (Non-Af Amer) 102.4 ml/min BUN/Creatinine Ratio 11.1 (10-20) Glucose 98 (70-99(Fasting)) mg/dl Calcium 9.4 (8.6-10.3) mg/dl Total Bilirubin 0.7 (0.2-1.0) mg/dl AST 17 (13-39) U/L ALT 14 (7-52) U/L Alkaline Phosphatase 68 (34-104) U/L Total Protein 7.9 (6.0-8.3) gm/dl Albumin 4.7 (3.4-5.0) gm/dl Globulin 3.2 (2.5-4.0) gm/dl Albumin/Globulin Ratio 1.5 (0.9-2) Lipase 36 (11-82) U/L Urine Color Yellow Urine Appearance Cloudy A (Clear) Urine pH 7.0 (4.5-7.5) Ur Specific [place] 1.019 (1.000-1.030) Urine Protein Negative (Negative) Urine Glucose (UA) Negative (Negative) Urine Ketones 3+ H (Negative) Urine Blood Negative (Negative) Urine Nitrite Negative (Negative) Urine Bilirubin Negative (Negative) Urine Urobilinogen Negative (Negative) Ur Leukocyte Esterase 1+ H (Negative) Urine WBC (Auto) 10-30 H (0-5) /hpf Urine RBC (Auto) 0-4 (0-4) /hpf U Hyaline Cast (Auto) 1-5 (0-5) /lpf U Epithel Cells (Auto) >30 H (0-5) /lpf Urine Bacteria (Auto) 2+ H (Negative) POC Ur Test (NEG) SARS-CoV-2, RNA, NAAT (NEGATIVE) 10/10/22 Range/Units 15:09 WBC (4.8-10.8) K/ul RBC (4.20-5.40) M/uL Hgb (12.0-16.0) g/dl Hct (37.0-47.0) % MCV (80.0-100.0) fL MCH (25.0-34.0) pg MCHC (32.0-36.0) g/dL RDW Std Deviation (36.4-46.3) fL RDW Coeff of Janny (11.5-14.5) % Plt Count (130-400) K/uL MPV (9.4-12.4) fL Immature Gran % (Auto) % Neut % (Auto) % Lymph % (Auto) % [place] % (Auto) % Eos % (Auto) % Baso % (Auto) % Neut # (Auto) (1.40-6.50) K/uL Lymph # (Auto) (1.2-3.4) K/uL [place] # (Auto) (0.11-0.59) K/uL Eos # (Auto) (0-0.50) K/uL Baso # (Auto) (0-0.2) K/uL Immature Gran # (Auto) (0.01-0.20) K/uL Dohle Bodies Sodium (136-145) mmol/L Potassium (3.5-5.1) mmol/L Chloride (98-107) mmol/L Carbon Dioxide (21-32) mmol/L Anion Gap (3-11) BUN (6-23) mg/dl Creatinine (0.6-1.2) mg/dl Est Cr Clr Drug Dosing ml/min Est GFR ( Amer) ml/min Est GFR (Non-Af Amer) ml/min BUN/Creatinine Ratio (10-20) Glucose (70-99(Fasting)) mg/dl Calcium (8.6-10.3) mg/dl Total Bilirubin (0.2-1.0) mg/dl AST (13-39) U/L ALT (7-52) U/L Alkaline Phosphatase (34-104) U/L Total Protein (6.0-8.3) gm/dl Albumin (3.4-5.0) gm/dl Globulin (2.5-4.0) gm/dl Albumin/Globulin Ratio (0.9-2) Lipase (11-82) U/L Urine Color Urine Appearance (Clear) Urine pH (4.5-7.5) Ur Specific [place] (1.000-1.030) Urine Protein (Negative) Urine Glucose (UA) (Negative) Urine Ketones (Negative) Urine Blood (Negative) Urine Nitrite (Negative) Urine Bilirubin (Negative) Urine Urobilinogen (Negative) Ur Leukocyte Esterase (Negative) Urine WBC (Auto) (0-5) /hpf Urine RBC (Auto) (0-4) /hpf U Hyaline Cast (Auto) (0-5) /lpf U Epithel Cells (Auto) (0-5) /lpf Urine Bacteria (Auto) (Negative) POC Ur Test NEG (NEG) SARS-CoV-2, RNA, NAAT (NEGATIVE)
[2022-10-11] MEDS: LACTATED RINGER'S 1,000 ML IV SCH ×2 (10:28→21:47)
[2022-10-11] MEDS ORDERED: ALUMINUM/MAGNESIUM/SIMETH (MAALOX MAX) 30 ML UDC PO PRN (19:29)
[2022-10-12] MEDS: HYDROmorphone INJ 0.5 MG/0.5 ML SYR IV PRN ×4 (04:10→22:21)
[2022-10-12] MEDS: PROMETHAZINE HCL 12.5 MG in SODIUM CHLORIDE 0.9% 50 ML IV PRN ×3 (04:10→23:37)
[2022-10-12] MEDS: oxyCODONE/ACETAMINOPHEN 5mg/325mg TAB PO PRN (08:03)
[2022-10-12] MEDS: PIPERACILLIN/TAZOBACTAM 4.5 GM in DEXTROSE 5% 100 ML IV SCH (08:08)
[2022-10-12] MEDS: ondansetron HCL 6 MG in DEXTROSE 5% 50 ML IV PRN (08:36)
[2022-10-12 08:50] LABS: Basophils # (auto) 0.02 K/uL (0-0.2); Basophils % (auto) 0.1 %; Hematocrit (blood only) 36.8 % (37.0-47.0); Hemoglobin 12.5 g/dl (12.0-16.0); Immature Granulocytes # (auto) 0.11 K/uL (0.01-0.20); Immature Granulocytes % (auto) 0.6 %; Lymphocytes # (auto) 0.99 K/uL (1.2-3.4); Lymphocytes % (auto) 5.4 %; Mean Corpuscular Hemoglobin 30.2 pg (25.0-34.0); Mean Corpuscular Volume 88.9 fL (80.0-100.0); Mean Platelet Volume 10.9 fL (9.4-12.4); Monocytes # (auto) 1.02 K/uL (0.11-0.59); Monocytes % (auto) 5.6 %; Neutrophils # (auto) 16.03 K/uL (1.40-6.50); Neutrophils % (auto) 88.3 %; Platelet Count 249 K/uL (130-400); RDW Coefficient of Variation 12.6 % (11.5-14.5); RDW Standard Deviation 41.4 fL (36.4-46.3); Red Blood Count 4.14 M/uL (4.20-5.40); White Blood Count 18.17 K/ul (4.8-10.8)
[2022-10-12] MEDS ORDERED: DULoxetine HCL 20 MG CAP PO SCH (09:00)
[2022-10-12] MEDS: LACTATED RINGER'S 1,000 ML IV SCH ×2 (10:36→11:39)
--- NOTE | 2022-10-12 10:52 | Surgery Progress Note ---
Date of Service October 12, 2022 Assessment & Plan (1) Acute perforated appendicitis: Plan: POD # 2 s/p laparoscopic appendectomy for perforated appendicitis with appendicolith afebrile, vss postop pain controlled emesis x 2 last night precious drain with increased output but now serous wbc up to 18k today, cutlure E. coli + Plan: Continue pain management as needed Will switch to IV cipro and flagyl based on sensitivities and wbc slightly increasing precious drain to bulb suction incentive spirometry and scds encouraged ambulating keep clears for now repeat am cbc Dr. Lara has seen and examined pt, agrees with above Admission and Anticipated Discharge Date Admission Date: October 10, 2022 Subjective had rough night, had vomiting x 2 after taking percocet on empty stomach passing gas pain controlled drain with alot of output but looks clear no fevers or chills Physical Exam Constitutional: WD/WN, vitals as above cooperative and comfortable; no acute distress and not ill appearing Respiratory: normal respiratory effort; no respiratory distress Gastrointestinal (Abdomen): Inspection/Auscultation: abdomen normal to inspection, + abdominal surgical incision (covered with dry dressings) and + abdominal surgical drain present (serous output); abdomen not distended Percussion/Palpation: + abdomen tender (at incision sites and drain site) and abdomen soft; no guarding, abdomen not rigid and abdomen not firm Skin: no rashes, warm and dry Psychiatric: Orientation: alert and oriented x 3 Results & Data Vital Signs (Past 12 Hours) Vital Signs Temp Pulse Resp BP Pulse Ox O2 Del Method 10/12/22 08:17 36.5 C 56 L 16 129/86 97 Room Air Laboratory Results 10/12/22 Range/Units 08:06 WBC 18.17 H (4.8-10.8) K/ul RBC 4.14 L (4.20-5.40) M/uL Hgb 12.5 (12.0-16.0) g/dl Hct 36.8 L (37.0-47.0) % MCV 88.9 (80.0-100.0) fL MCH 30.2 (25.0-34.0) pg MCHC 34.0 (32.0-36.0) g/dL RDW Std Deviation 41.4 (36.4-46.3) fL RDW Coeff of Janny 12.6 (11.5-14.5) % Plt Count 249 (130-400) K/uL MPV 10.9 (9.4-12.4) fL Immature Gran % (Auto) 0.6 % Neut % (Auto) 88.3 % Lymph % (Auto) 5.4 % [place] % (Auto) 5.6 % Eos % (Auto) 0.0 % Baso % (Auto) 0.1 % Neut # (Auto) 16.03 H (1.40-6.50) K/uL Lymph # (Auto) 0.99 L (1.2-3.4) K/uL [place] # (Auto) 1.02 H (0.11-0.59) K/uL Eos # (Auto) 0.00 (0-0.50) K/uL Baso # (Auto) 0.02 (0-0.2) K/uL Immature Gran # (Auto) 0.11 (0.01-0.20) K/uL
[2022-10-12] MEDS: metroNIDAZOLE 500 MG/100 ML BAG IV SCH ×2 (12:42→20:20)
[2022-10-12] MEDS: buPROPion XL 150 MG TABCR PO SCH (12:47)
[2022-10-12] MEDS: CIPROFLOXACIN / D5W 400 MG/200 ML BAG IV SCH (13:38)
[2022-10-13] MEDS: CIPROFLOXACIN / D5W 400 MG/200 ML BAG IV SCH ×3 (00:12→22:45)
[2022-10-13] MEDS: metroNIDAZOLE 500 MG/100 ML BAG IV SCH ×3 (03:52→19:34)
[2022-10-13] MEDS: HYDROmorphone INJ 0.5 MG/0.5 ML SYR IV PRN (04:23)
[2022-10-13 08:31] LABS: Basophils # (auto) 0.02 K/uL (0-0.2); Basophils % (auto) 0.1 %; Eosinophils # (auto) 0.04 K/uL (0-0.50); Eosinophils % (auto) 0.2 %; Hematocrit (blood only) 40.5 % (37.0-47.0); Hemoglobin 13.5 g/dl (12.0-16.0); Immature Granulocytes # (auto) 0.08 K/uL (0.01-0.20); Immature Granulocytes % (auto) 0.5 %; Lymphocytes # (auto) 1.74 K/uL (1.2-3.4); Lymphocytes % (auto) 10.5 %; Mean Corpuscular Hemoglobin 29.5 pg (25.0-34.0); Mean Corpuscular Hgb Conc 33.3 g/dL (32.0-36.0); Mean Corpuscular Volume 88.6 fL (80.0-100.0); Mean Platelet Volume 10.6 fL (9.4-12.4); Monocytes # (auto) 0.98 K/uL (0.11-0.59); Monocytes % (auto) 5.9 %; Neutrophils # (auto) 13.71 K/uL (1.40-6.50); Neutrophils % (auto) 82.8 %; Platelet Count 317 K/uL (130-400); RDW Coefficient of Variation 12.6 % (11.5-14.5); RDW Standard Deviation 40.7 fL (36.4-46.3); Red Blood Count 4.57 M/uL (4.20-5.40); White Blood Count 16.57 K/ul (4.8-10.8)
[2022-10-13] MEDS ORDERED: Nursing to Pharmacy Communication SCH (08:45)
--- NOTE | 2022-10-13 09:26 | Surgery Progress Note ---
Date of Service October 13, 2022 Assessment & Plan (1) Acute perforated appendicitis: Plan: POD # 3 s/p laparoscopic appendectomy for perforated appendicitis with appendicolith afebrile, vss postop pain controlled + nausea and emesis precious drain with increased output but now serous wbc 16k today, cutlure E. coli + Plan: Given emesis and abdominal distention will revert back to NPO and continue IV pain management Continue pain management as needed, will add IV schedule Tylenol Continue IV cipro and flagyl precious drain to bulb suction incentive spirometry and scds encouraged ambulating, needs to increase ambulation today given mild abd distention and emesis, likely has postop ileus repeat am cbc [facility] surgery covering this weekend, hopeful discharge in next 1-2 days to go home with precious drain f/u surgery office next week 7 days cipro/flagyl Dr. Lara has seen patient and agrees with above. Admission and Anticipated Discharge Date Admission Date: October 10, 2022 Subjective feeling tired still having nausea but no vomiting pain slowly improving urinating without difficulty passing gas now bowel movement belching only ambulated hallway once yesterday Physical Exam Constitutional: WD/WN, vitals as above cooperative and comfortable; no acute distress and not ill appearing Gastrointestinal (Abdomen): Inspection/Auscultation: + abdomen distended (mildly), + abdominal surgical incision (covered with dressings), + abdominal surgical drain present (serous) and + hypoactive bowel sounds; + abnormal bowel sounds Percussion/Palpation: + abdomen tender (at incision sites and RLQ) and abdomen soft; no guarding and abdomen not rigid Skin: no rashes, warm and dry Psychiatric: Orientation: alert and oriented x 3 Results & Data Vital Signs (Past 12 Hours) Vital Signs Temp Pulse Resp BP Pulse Ox O2 Del Method 10/13/22 07:10 36.8 C 74 18 127/77 95 Room Air 10/12/22 22:03 36.9 C 67 15 146/88 H 96 Room Air Laboratory Results 10/13/22 Range/Units 07:50 WBC 16.57 H (4.8-10.8) K/ul RBC 4.57 (4.20-5.40) M/uL Hgb 13.5 (12.0-16.0) g/dl Hct 40.5 (37.0-47.0) % MCV 88.6 (80.0-100.0) fL MCH 29.5 (25.0-34.0) pg MCHC 33.3 (32.0-36.0) g/dL RDW Std Deviation 40.7 (36.4-46.3) fL RDW Coeff of Janny 12.6 (11.5-14.5) % Plt Count 317 (130-400) K/uL MPV 10.6 (9.4-12.4) fL Immature Gran % (Auto) 0.5 % Neut % (Auto) 82.8 % Lymph % (Auto) 10.5 % [place] % (Auto) 5.9 % Eos % (Auto) 0.2 % Baso % (Auto) 0.1 % Neut # (Auto) 13.71 H (1.40-6.50) K/uL Lymph # (Auto) 1.74 (1.2-3.4) K/uL [place] # (Auto) 0.98 H (0.11-0.59) K/uL Eos # (Auto) 0.04 (0-0.50) K/uL Baso # (Auto) 0.02 (0-0.2) K/uL Immature Gran # (Auto) 0.08 (0.01-0.20) K/uL Microbiology 10/10/22 17:05 Urine Culture - Final Urine,Clean Catch More than three types of organisms present, all high counts. Repeat collection recommended. No further identifications or sensitivities to follow. 10/10/22 20:08 Gram Stain - Final Abdomen Aerobic and Anaerobic Culture - Preliminary Escherichia coli
[2022-10-13] MEDS: LACTATED RINGER'S 1,000 ML IV SCH (10:13)
[2022-10-13] MEDS: PROMETHAZINE HCL 12.5 MG in SODIUM CHLORIDE 0.9% 50 ML IV PRN ×2 (10:15→18:33)
[2022-10-13] MEDS: PANTOprazole 40 MG in SYRINGE 0 ML IV SCH (11:35)
[2022-10-13] MEDS: ACETAMINOPHEN 1,000 MG/100 ML VIAL IV SCH ×2 (11:36→18:11)
[2022-10-13] MEDS: DULoxetine HCL 20 MG CAP PO SCH (21:06)
[2022-10-13] MEDS: buPROPion XL 150 MG TABCR PO SCH (21:06)
[2022-10-14] MEDS: PROMETHAZINE HCL 12.5 MG in SODIUM CHLORIDE 0.9% 50 ML IV PRN ×3 (01:05→21:03)
[2022-10-14] MEDS: ACETAMINOPHEN 1,000 MG/100 ML VIAL IV SCH ×3 (02:08→18:41)
[2022-10-14] MEDS: metroNIDAZOLE 500 MG/100 ML BAG IV SCH ×2 (04:08→12:01)
[2022-10-14] MEDS: LACTATED RINGER'S 1,000 ML IV SCH ×2 (04:09→22:53)
--- NOTE | 2022-10-14 05:51 | Surgery Progress Note ---
Date of Service October 14, 2022 Assessment & Plan (1) Acute perforated appendicitis: Plan: Patient is status post appendectomy on 10/10/2022 (postop day #4). Symptoms of ileus. Afebrile, HD stable with decreasing leykocytosis. Operative cultures showed E. coli which is sensitive to Cipro. Patient is on Cipro and Flagyl, Flagyl will be discontinued. Patient is currently on clear liquids. She was returned to NPO yesterday and we tried her on clears again as she was passing flatus. We will return her to NPO for now as she has not passed much gas this am. No unusual abdominal pain is present, only soreness at incision sites so likely just post op ileus sta rting. I have encouraged the patient to continue ambulation which she says she has been doing which will hopefully help alleviate her ileus. Continue JAE drain to bulb suction. Patient will be discharged with JAE drain in place Continue analgesics Continue antiemetics Continue IV fluids Admission and Anticipated Discharge Date Admission Date: October 10, 2022 Supervising Physician Co-Signing Physician Notes I have seen and examined this patient this am with the surgical PA. I agree with the above plan. We will continue to monitor. Subjective Patient feels less urge to vomit when she remains in the chair. She did get in the bed last night to try to sleep and had an episode of vomiting this am. She does note some minor abdominal pain at the incision sites. She does report that she tried minimal clear liquids last night but had some emesis earlier this morning which happened yesterday as well. Notes the onset of belching right before these episodes of vomiting. She does report having a small bowel movement and and has not passed flatus yet this am. Admits that she passed a lot of flatus yesterday. Physical Exam Gastrointestinal (Abdomen): Abdomen is nonrigid and minimally distended. Bowel sounds are hypoactive to absent. Appropriate tenderness noted near surgical incisions. Surgical incisions appear clean, dry, and intact. JAE drain is in place with some serous fluid. Has drained approximately 100 cc over the past shift. Results & Data Vital Signs (Past 12 Hours) Vital Signs Temp Pulse Resp BP Pulse Ox O2 Del Method 10/13/22 19:51 37.0 C 73 16 117/79 96 Room Air PG Care Time/CCT Total # of Minutes Spent Total Time Spent with Patient: Total time spent is greater than 50% in coordination of care (as documented) at patient's floor/unit and/or counseling patient: [place] [address] Post Operative Follow-Up Patient Type Established History Problem Focused Exam Problem Focused Medical Decision Making Straight Forward Diagnoses Acute perforated appendicitis K35.32
[2022-10-14 07:08] LABS: Basophils # (auto) 0.03 K/uL (0-0.2); Basophils % (auto) 0.2 %; Eosinophils % (auto) 0.7 %; Hematocrit (blood only) 38.6 % (37.0-47.0); Hemoglobin 12.7 g/dl (12.0-16.0); Immature Granulocytes # (auto) 0.07 K/uL (0.01-0.20); Immature Granulocytes % (auto) 0.5 %; Lymphocytes # (auto) 1.56 K/uL (1.2-3.4); Lymphocytes % (auto) 11.3 %; Mean Corpuscular Hemoglobin 29.9 pg (25.0-34.0); Mean Corpuscular Hgb Conc 32.9 g/dL (32.0-36.0); Mean Corpuscular Volume 90.8 fL (80.0-100.0); Mean Platelet Volume 10.2 fL (9.4-12.4); Monocytes # (auto) 0.85 K/uL (0.11-0.59); Monocytes % (auto) 6.2 %; Neutrophils % (auto) 81.1 %; Platelet Count 354 K/uL (130-400); RDW Coefficient of Variation 12.6 % (11.5-14.5); RDW Standard Deviation 41.9 fL (36.4-46.3); Red Blood Count 4.25 M/uL (4.20-5.40); White Blood Count 13.81 K/ul (4.8-10.8)
[2022-10-14 07:21] LABS: BUN Creatinine Ratio 11.1 (10-20); Calcium 8.6 mg/dl (8.6-10.3); Creatinine Clr Calc Pharmacy 143.6 ml/min; Est GFR (African American) 146.5 ml/min; Est GFR (Non-African American) 126.4 ml/min; Potassium 3.5 mmol/L (3.5-5.1)
[2022-10-14] MEDS ORDERED: KETOROLAC TROMETHAMINE 15 MG/ML VIAL IV ONE (08:16)
[2022-10-14] MEDS: HEPARIN SOD 5,000 UNIT/0.5 ML VIAL SQ SCH ×2 (08:58→21:09)
[2022-10-14] MEDS: PANTOprazole 40 MG in SYRINGE 0 ML IV SCH (10:38)
[2022-10-14] MEDS: CIPROFLOXACIN / D5W 400 MG/200 ML BAG IV SCH ×2 (11:52→22:53)
[2022-10-14] MEDS: DULoxetine HCL 20 MG CAP PO SCH (14:36)
[2022-10-14] MEDS: buPROPion XL 150 MG TABCR PO SCH (14:36)
[2022-10-15] MEDS: ACETAMINOPHEN 1,000 MG/100 ML VIAL IV SCH ×3 (03:32→19:39)
--- NOTE | 2022-10-15 06:21 | Surgery Progress Note ---
Date of Service October 15, 2022 Assessment & Plan (1) Acute perforated appendicitis: Plan: Patient is status post appendectomy on 10/10/2022 (postop day #5). She continues to be afebrile, HD stable. Her leukocytosis began to increase again this am. Continue care as follows: As previously noted, operative cultures showed E. coli which is sensitive to Cipro. Patient is receiving Cipro which should continue. Flagyl was discontinued on 10/14/2022 Concern noted for patient having a postoperative ileus. Due to nausea and vomiting yesterday she was backed down n.p.o. status. Today she reports a single episode of nausea without vomiting and has no appetite. We will continue NPO for now. Continue IV fluids for hydration while NPO -F/U labs tomorrow am. Continue to encourage ambulation. Patient needs to walk more. Ambulate aggressively today. Continue JAE drain to bulb suctionplans noted for patient to go home with this at time of discharge Continue analgesics and antiemetics as needed. Subcutaneous heparin is in place for DVT prevention Admission and Anticipated Discharge Date Admission Date: October 10, 2022 Supervising Physician Co-Signing Physician Notes I have seen and examined this patient with the surgical PA this am. I agree with this plan. Subjective Patient currently resting in bed and appears a little more tired, less interactive this am stating she is tired ans sweaty. She says she has night sweats on a usual basis at home, this is nothing new. She notes that overall she feels somewhat improved from yesterday with less nausea. She states 1 minor episode of nausea when she got up and voided a large amount this am without vomiting. She says she is passing a small amount of flatus and also had a small bowel movement over the past 24 hours. She says she still does not have much of an appetite and feels as though her abdominal pain is the same with some discomfort down the middle of the lower abdomen not complaining of RLQ pain. She says the drainage from the JAE drain continues to look the same. Physical Exam Gastrointestinal (Abdomen): Abdomen is soft and nonrigid. Bowel sounds are present. Patient has appr opriate pain near surgical incisions. JAE drain is in place draining serous fluid. It is drained 260 cc over the past 24 hours and 130 cc last shift. Results & Data Vital Signs (Past 12 Hours) Vital Signs Temp Pulse Resp BP Pulse Ox O2 Del Method 10/14/22 20:00 Room Air 10/14/22 21:44 36.9 C 82 18 99/65 L 94 Room Air Laboratory Results WBC increased to 16.03 from 13.8 with a slight increase in absolute neutrophils. PG Care Time/CCT Total # of Minutes Spent Total Time Spent with Patient: Total time spent is greater than 50% in coordination of care (as documented) at patient's floor/unit and/or counseling patient: Coding Level of Care Code 03366 Post Operative Follow-Up Diagnoses Acute perforated appendicitis K35.32
[2022-10-15 06:33] LABS: Hematocrit (blood only) 35.7 % (37.0-47.0); Hemoglobin 12.2 g/dl (12.0-16.0); Mean Corpuscular Hemoglobin 30.1 pg (25.0-34.0); Mean Corpuscular Hgb Conc 34.2 g/dL (32.0-36.0); Mean Corpuscular Volume 88.1 fL (80.0-100.0); Platelet Count 326 K/uL (130-400); RDW Coefficient of Variation 12.5 % (11.5-14.5); RDW Standard Deviation 40.6 fL (36.4-46.3); Red Blood Count 4.05 M/uL (4.20-5.40); White Blood Count 16.03 K/ul (4.8-10.8)
[2022-10-15 06:54] LABS: Basophils # (auto) 0.03 K/uL (0-0.2); Basophils % (auto) 0.2 %; Eosinophils % (auto) 1.2 %; Immature Granulocytes # (auto) 0.13 K/uL (0.01-0.20); Immature Granulocytes % (auto) 0.8 %; Lymphocytes # (auto) 2.31 K/uL (1.2-3.4); Lymphocytes % (auto) 14.4 %; Monocytes # (auto) 1.04 K/uL (0.11-0.59); Monocytes % (auto) 6.5 %; Neutrophils # (auto) 12.32 K/uL (1.40-6.50); Neutrophils % (auto) 76.9 %
[2022-10-15] MEDS: HEPARIN SOD 5,000 UNIT/0.5 ML VIAL SQ SCH ×2 (10:26→20:30)
[2022-10-15] MEDS: PANTOprazole 40 MG in SYRINGE 0 ML IV SCH (12:17)
[2022-10-15] MEDS: CIPROFLOXACIN / D5W 400 MG/200 ML BAG IV SCH ×2 (12:17→23:38)
[2022-10-15] MEDS: DULoxetine HCL 20 MG CAP PO SCH (13:21)
[2022-10-15] MEDS: buPROPion XL 150 MG TABCR PO SCH (13:21)
[2022-10-15] MEDS: ACETAMINOPHEN 325 MG TAB PO PRN (16:22)
[2022-10-15] MEDS: PROMETHAZINE HCL 12.5 MG in SODIUM CHLORIDE 0.9% 50 ML IV PRN (17:13)
[2022-10-15] MEDS: LACTATED RINGER'S 1,000 ML IV SCH (19:40)
[2022-10-15] MEDS: HYDROmorphone INJ 0.5 MG/0.5 ML SYR IV PRN (20:30)
[2022-10-16] MEDS: PROMETHAZINE HCL 12.5 MG in SODIUM CHLORIDE 0.9% 50 ML IV PRN ×3 (03:09→22:36)
[2022-10-16] MEDS: ACETAMINOPHEN 1,000 MG/100 ML VIAL IV SCH (03:38)
[2022-10-16 07:48] LABS: Basophils # (auto) 0.06 K/uL (0-0.2); Basophils % (auto) 0.4 %; Eosinophils # (auto) 0.18 K/uL (0-0.50); Eosinophils % (auto) 1.2 %; Hematocrit (blood only) 38.1 % (37.0-47.0); Hemoglobin 12.9 g/dl (12.0-16.0); Immature Granulocytes # (auto) 0.12 K/uL (0.01-0.20); Immature Granulocytes % (auto) 0.8 %; Lymphocytes # (auto) 1.77 K/uL (1.2-3.4); Lymphocytes % (auto) 11.5 %; Mean Corpuscular Hgb Conc 33.9 g/dL (32.0-36.0); Mean Corpuscular Volume 88.6 fL (80.0-100.0); Mean Platelet Volume 9.9 fL (9.4-12.4); Monocytes # (auto) 0.94 K/uL (0.11-0.59); Monocytes % (auto) 6.1 %; Neutrophils # (auto) 12.31 K/uL (1.40-6.50); Platelet Count 399 K/uL (130-400); RDW Coefficient of Variation 12.7 % (11.5-14.5); White Blood Count 15.38 K/ul (4.8-10.8)
[2022-10-16 08:09] LABS: Pregnancy Test, Serum Negative (Negative)
[2022-10-16] MEDS: HEPARIN SOD 5,000 UNIT/0.5 ML VIAL SQ SCH ×2 (10:18→20:07)
[2022-10-16] MEDS: metroNIDAZOLE 500 MG/100 ML BAG IV SCH ×3 (11:02→23:30)
--- NOTE | 2022-10-16 11:18 | Gastrointestinal Consultation ---
Date of Consultation October 16, 2022 Assessment & Plan (1) Nausea & vomiting: Related to appendicitis an appendectomy. Pt does not have chronic nausea or other GI symptoms. Plan 1. Please obtain a CT scan of the abdomen. 2. Liquid diet. 3. Phenergan. Will consider other antiemetics if CTAP normal post op. 4. Would defer endoscopy at this time. Supervising Physician Co-Signing Physician Notes I performed a history and physical examination of the patient today, including specifically on physical exam - soft abdomen. I have discussed the patient's management with the advanced practitioner. Please refer to the nurse practitioner's note for the documented findings and plan of care. Admitted with perforated appendicitis, s/p lap Appendectomy, now with post operative N/V. Labs with hypokalemia and leukocytosis. I reviewed her KUB which has dilated bowel loops. Stomach is not large. Likely postoperative ileus. Please obtain CT scan of the abdomen with low volume PO contrast as tolerated to r/o SBO. Correct Potassium as she likely has postoperative ileus. Minimize the use of Opioids. If CT scan shows no SBO we can consider Relistor. PRN Antiemetics. History of Present Illness Reason for Consultation: vomiting Requesting Physician: Dr. Lara Attending Physician: Brittany Lara MD History of Present Illness Ms. Abby Ochoa is a 22 yr old female pt w/o a local PCP who presented to the ED on 10/10 for RLQ w nausea, vomiting, diarrhea. CTAP w IV at that time w severe appendicitis, possible perforation. She underwent laparoscopic appendectomy for perforated appendicitis with appendicolith by Dr. Lara on the day of arrival. She did well on PO Day #1 but N/V began again Th evening x 4 episodes and continues Sun x 4 episodes. Sat felt better, but vomited again on Sunday and this morning. Currently awake, alert, oriented, still w significant nausea, mild to moderate diffuse tenderness throughout though abd is soft and JAE drain is draining serous fluid. BS are hypoactive. She did start her menses yesterday. Urine HCG is (-). LFTs and lipase have been normal. Was initially on Cipro/flagyl. Flagyl DC'ed as though contributing to nausea but vomiting restarted on Sunday when not on flagyl. It was restarted today because increase in leukocytosis (which hasn't resolved yet since surgery). She did pass a few brown, small formed BMs yesterday. Passing gas today. Allergies Allergy/AdvReac Type Severity Reaction Status Date / Time No Known Allergies Allergy Unverified 10/10/22 18:47 Home Medications Medication Instructions Recorded Confirmed Type bupropion HCl 150 mg 24 hr tablet, 150 mg PO QAM 10/10/22 10/10/22 History extended release duloxetine 20 mg capsule,delayed 20 mg PO BID 10/10/22 10/10/22 History release ciprofloxacin HCl 500 mg tablet 500 mg PO BID #14 tabs 10/13/22 Rx metronidazole 500 mg tablet 500 mg PO TID #21 tabs 10/13/22 Rx oxycodone-acetaminophen 5 mg-325 1 tab PO Q6H PRN pain #12 tabs 10/13/22 Rx mg tablet Patient History Medical History (Updated 10/16/22 @ 12:25 by ROSE Knowles) No chronic diseases present Surgical History (Updated 10/10/22 @ 18:50 by Tyson Blanchard RN) No significant past surgical history [place] teeth extracted Social History Smoking Status: Never smoker Second Hand Exposure: No; Do You Dip or Chew Tobacco: No; Hx Alcohol Use: No Hx Substance Use: Yes Last Used Substance: Days (ago) Last Used Substance Other:: Has medical card for marijuana. Preferred Language: French Communication Ability: Effective Street Superintendent Required: No Beliefs That Will Affect Care: None Current Living Situation: Significant Other Feels Safe at Home: Yes Assistive Devices: None Review of Systems Review of Systems: ROS: Gen: "tired- ready to be better," no fevers, no focal weakness. Pleasant and able to carry a conversation. Eyes: No eye redness, or pain, no recent vision changes Resp: No SOB, no cough Cardio: No palpitations/irregular beats, no chest pain GI: As per HPI. : + suprapubic pain and tenderness on urination. Urine clear/yellow. Skin: No jaundice, itching or new rashes Physical Exam Constitutional: WD/WN, vitals as above Eyes: PERRL, conjunctivae normal, anicteric sclerae ENMT: external ear and nose normal, oropharynx normal Neck: trachea midline, no thyromegaly Respiratory: normal respiratory effort, lungs clear to auscultation Cardiovascular: RRR, no murmur, no edema Gastrointestinal (Abdomen): Soft, hypoactive BS. Moderately tender across both lower quadrants including the suprapubic area. Mild tenderness in the upper abdomen. Skin: no rashes, warm and dry Neurologic: PERRL, EOMI, accommodation nl, no face palsy, no dysarthria Psychiatric: A+Ox3, euthymic affect Lymphatic: no cervical or axillary lymphadenopathy Results & Data Vital Signs (Past 12 Hours) Vital Signs Temp Pulse Resp BP Pulse Ox O2 Del Method 10/16/22 08:14 36.6 C 60 17 116/74 95 Room Air Laboratory Results WBC 15, Hb 12.9, Hct 38.1, Plts 399, HCG (-). Chem panel normal on 10/16/22. Diagnostic Findings CTAP w IV on 10/10/22: 1. Severe acute appendicitis. 2. Findings are highly suspicious for perforation. 3. No intraperitoneal free air is identified. No organized/drainable fluid collection is seen to indicate abscess. 4. There is nonspecific free fluid in the pelvis with mild peritoneal thickening and enhancement. 5. Mild wall thickening of the sigmoid colon is likely related to adjacent appendicitis and surrounding inflammation.
[2022-10-16] MEDS: PANTOprazole 40 MG in SYRINGE 0 ML IV SCH (11:49)
[2022-10-16 12:07] LABS: Alanine Aminotransferase 26 U/L (7-52); Albumin Globulin Ratio 1.2 (0.9-2); Albumin Level 3.4 gm/dl (3.4-5.0); Alkaline Phosphatase 47 U/L (34-104); Anion Gap 11 (3-11); Aspartate Aminotransferase 36 U/L (13-39); BUN Creatinine Ratio 10.7 (10-20); Bilirubin,Total 0.3 mg/dl (0.2-1.0); Blood Urea Nitrogen 6 mg/dl (6-23); Calcium 8.5 mg/dl (8.6-10.3); Carbon Dioxide 22 mmol/L (21-32); Chloride 103 mmol/L (98-107); Creatinine Clr Calc Pharmacy 161.6 ml/min; Est GFR (African American) > 150.0 ml/min; Est GFR (Non-African American) 131.4 ml/min; Globulin 2.8 gm/dl (2.5-4.0); Glucose 98 mg/dl (70-99(Fasting)); Potassium 3.3 mmol/L (3.5-5.1); Sodium 136 mmol/L (136-145); Total Protein 6.2 gm/dl (6.0-8.3)
--- NOTE | 2022-10-16 12:17 | Surgery Progress Note ---
Date of Service October 16, 2022 Assessment & Plan (1) Acute perforated appendicitis: Plan: POD # 3 s/p laparoscopic appendectomy for perforated appendicitis with appendicolith afebrile, vss postop pain controlled + nausea and emesis precious drain with increased output but now serous wbc 16k today, cutlure E. coli + Plan: Given emesis and abdominal distention will revert back to NPO and continue IV pain management Continue pain management as needed, will add IV schedule Tylenol Continue IV cipro and flagyl precious drain to bulb suction incentive spirometry and scds encouraged ambulating, needs to increase ambulation today given mild abd distention and emesis, likely has postop ileus repeat am cbc [facility] surgery covering this weekend, hopeful discharge in next 1-2 days to go home with precious drain f/u surgery office next week 7 days cipro/flagyl Dr. Lara has seen patient and agrees with above. 10/16/2022 12:[address] Lara POD # 6 s/p laparoscopic appendectomy for perforated appendicitis stable, still nausea and vomiting, will consult GI for vomiting, KUB back to flagyl. repeat labs in morning, po zofran 4mg q6h x 2 days. will F/U will F/U, Admission and Anticipated Discharge Date Admission Date: October 10, 2022 Supervising Physician Co-Signing Physician Notes I have seen and examined this patient with the surgical PA this am. I agree with this plan. Subjective Patient currently resting in bed and appears a little more tired, less interactive this am stating she is tired ans sweaty. She says she has night sweats on a usual basis at home, this is nothing new. She notes that overall she feels somewhat improved from yesterday with less nausea. She states 1 minor episode of nausea when she got up and voided a large amount this am without vomiting. She says she is passing a small amount of flatus and also had a small bowel movement over the past 24 hours. She says she still does not have much of an appetite and feels as though her abdominal pain is the same with some discomfort down the middle of the lower abdomen not complaining of RLQ pain. She says the drainage from the PRECIOUS drain continues to look the same. 10/16/2022 12:09PM Dr. Lara F/U S/P laparoscopic appendectomy for perforated appendicitis, POD 6 pt said she felt better yesterday, pt felt some nausea this morning, and dysuria, pt denies significant abdominal pain, no fever, passed some BM, PRECIOUS 300ml clear color. Physical Exam Constitutional: WD/WN, vitals as above Eyes: PERRL, conjunctivae normal, anicteric sclerae Neck: trachea midline, no thyromegaly Respiratory: normal respiratory effort, lungs clear to auscultation Cardiovascular: RRR, no murmur, no edema Gastrointestinal (Abdomen): soft, no distend, all incisions intact, no redness, PRECIOUS intact, mild tenderness at umbilical incision site, BS +, Musculoskeletal: no cyanosis or clubbing, extremities motor strength 5/5 Skin: no rashes, warm and dry Neurologic: patellar DTR's 2+ bilat, sensation intact Psychiatric: A+Ox3, euthymic affect Results & Data Vital Signs (Past 12 Hours) Vital Signs Temp Pulse Resp BP Pulse Ox O2 Del Method 10/16/22 08:14 36.6 C 60 17 116/74 95 Room Air Laboratory Results Lab Results 10/10/22 10/10/22 10/10/22 Range/Units 15:09 15:27 15:27 WBC 21.18 H (4.8-10.8) K/ul RBC 4.29 (4.20-5.40) M/uL Hgb 13.0 (12.0-16.0) g/dl Hct 38.4 (37.0-47.0) % MCV 89.5 (80.0-100.0) fL MCH 30.3 (25.0-34.0) pg MCHC 33.9 (32.0-36.0) g/dL RDW Std Deviation 39.2 (36.4-46.3) fL RDW Coeff of Janny 12.1 (11.5-14.5) % Plt Count 279 (130-400) K/uL MPV 11.4 (9.4-12.4) fL Immature Gran % (Auto) 0.5 % Neut % (Auto) 87.7 % Lymph % (Auto) 5.8 % Calloway % (Auto) 5.8 % Eos % (Auto) 0.0 % Baso % (Auto) 0.2 % Neut # (Auto) 18.59 H (1.40-6.50) K/uL Lymph # (Auto) 1.22 (1.2-3.4) K/uL Calloway # (Auto) 1.22 H (0.11-0.59) K/uL Eos # (Auto) 0.00 (0-0.50) K/uL Baso # (Auto) 0.04 (0-0.2) K/uL Immature Gran # (Auto) 0.11 (0.01-0.20) K/uL Dohle Bodies Sodium 135 L (136-145) mmol/L Potassium 3.4 L (3.5-5.1) mmol/L Chloride 102 (98-107) mmol/L Carbon Dioxide 24 (21-32) mmol/L Anion Gap 9 (3-11) BUN 9 (6-23) mg/dl Creatinine 0.81 (0.6-1.2) mg/dl Est Cr Clr Drug Dosing 111.7 ml/min Est GFR ( Amer) 118.6 ml/min Est GFR (Non-Af Amer) 102.4 ml/min BUN/Creatinine Ratio 11.1 (10-20) Glucose 98 (70-99(Fasting)) mg/dl Calcium 9.4 (8.6-10.3) mg/dl Total Bilirubin 0.7 (0.2-1.0) mg/dl AST 17 (13-39) U/L ALT 14 (7-52) U/L Alkaline Phosphatase 68 (34-104) U/L Total Protein 7.9 (6.0-8.3) gm/dl Albumin 4.7 (3.4-5.0) gm/dl Globulin 3.2 (2.5-4.0) gm/dl Albumin/Globulin Ratio 1.5 (0.9-2) Lipase 36 (11-82) U/L HCG, Qual (Negative) Urine Color Urine Appearance (Clear) Urine pH (4.5-7.5) Ur Specific [place] (1.000-1.030) Urine Protein (Negative) Urine Glucose (UA) (Negative) Urine Ketones (Negative) Urine Blood (Negative) Urine Nitrite (Negative) Urine Bilirubin (Negative) Urine Urobilinogen (Negative) Ur Leukocyte Esterase (Negative) Urine WBC (Auto) (0-5) /hpf Urine RBC (Auto) (0-4) /hpf U Hyaline Cast (Auto) (0-5) /lpf U Epithel Cells (Auto) (0-5) /lpf Urine Bacteria (Auto) (Negative) POC Ur Test NEG (NEG) SARS-CoV-2, RNA, NAAT (NEGATIVE) 10/10/22 10/10/22 10/11/22 Range/Units 17:05 17:06 06:34 WBC 17.24 H (4.8-10.8) K/ul RBC 3.66 L (4.20-5.40) M/uL Hgb 11.2 L (12.0-16.0) g/dl Hct 33.0 L (37.0-47.0) % MCV 90.2 (80.0-100.0) fL MCH 30.6 (25.0-34.0) pg MCHC 33.9 (32.0-36.0) g/dL RDW Std Deviation 40.2 (36.4-46.3) fL RDW Coeff of Janny 12.3 (11.5-14.5) % Plt Count 218 (130-400) K/uL MPV 11.3 (9.4-12.4) fL Immature Gran % (Auto) 0.2 % Neut % (Auto) 88.4 % Lymph % (Auto) 3.7 % Calloway % (Auto) 7.5 % Eos % (Auto) 0.0 % Baso % (Auto) 0.2 % Neut # (Auto) 15.22 H (1.40-6.50) K/uL Lymph # (Auto) 0.64 L (1.2-3.4) K/uL Calloway # (Auto) 1.30 H (0.11-0.59) K/uL Eos # (Auto) 0.00 (0-0.50) K/uL Baso # (Auto) 0.04 (0-0.2) K/uL Immature Gran # (Auto) 0.04 (0.01-0.20) K/uL Dohle Bodies Occasional Sodium (136-145) mmol/L Potassium (3.5-5.1) mmol/L Chloride (98-107) mmol/L Carbon Dioxide (21-32) mmol/L Anion Gap (3-11) BUN (6-23) mg/dl Creatinine (0.6-1.2) mg/dl Est Cr Clr Drug Dosing ml/min Est GFR ( Amer) ml/min Est GFR (Non-Af Amer) ml/min BUN/Creatinine Ratio (10-20) Glucose (70-99(Fasting)) mg/dl Calcium (8.6-10.3) mg/dl Total Bilirubin (0.2-1.0) mg/dl AST (13-39) U/L ALT (7-52) U/L Alkaline Phosphatase (34-104) U/L Total Protein (6.0-8.3) gm/dl Albumin (3.4-5.0) gm/dl Globulin (2.5-4.0) gm/dl Albumin/Globulin Ratio (0.9-2) Lipase (11-82) U/L HCG, Qual (Negative) Urine Color Yellow Urine Appearance Cloudy A (Clear) Urine pH 7.0 (4.5-7.5) Ur Specific [place] 1.019 (1.000-1.030) Urine Protein Negative (Negative) Urine Glucose (UA) Negative (Negative) Urine Ketones 3+ H (Negative) Urine Blood Negative (Negative) Urine Nitrite Negative (Negative) Urine Bilirubin Negative (Negative) Urine Urobilinogen Negative (Negative) Ur Leukocyte Esterase 1+ H (Negative) Urine WBC (Auto) 10-30 H (0-5) /hpf Urine RBC (Auto) 0-4 (0-4) /hpf U Hyaline Cast (Auto) 1-5 (0-5) /lpf U Epithel Cells (Auto) >30 H (0-5) /lpf Urine Bacteria (Auto) 2+ H (Negative) POC Ur Test (NEG) SARS-CoV-2, RNA, NAAT NEGATIVE (NEGATIVE) 10/11/22 10/12/22 10/13/22 Range/Units 06:34 08:06 07:50 WBC 18.17 H 16.57 H (4.8-10.8) K/ul RBC 4.14 L 4.57 (4.20-5.40) M/uL Hgb 12.5 13.5 (12.0-16.0) g/dl Hct 36.8 L 40.5 (37.0-47.0) % MCV 88.9 88.6 (80.0-100.0) fL MCH 30.2 29.5 (25.0-34.0) pg MCHC 34.0 33.3 (32.0-36.0) g/dL RDW Std Deviation 41.4 40.7 (36.4-46.3) fL RDW Coeff of Janny 12.6 12.6 (11.5-14.5) % Plt Count 249 317 (130-400) K/uL MPV 10.9 10.6 (9.4-12.4) fL Immature Gran % (Auto) 0.6 0.5 % Neut % (Auto) 88.3 82.8 % Lymph % (Auto) 5.4 10.5 % Calloway % (Auto) 5.6 5.9 % Eos % (Auto) 0.0 0.2 % Baso % (Auto) 0.1 0.1 % Neut # (Auto) 16.03 H 13.71 H (1.40-6.50) K/uL Lymph # (Auto) 0.99 L 1.74 (1.2-3.4) K/uL Calloway # (Auto) 1.02 H 0.98 H (0.11-0.59) K/uL Eos # (Auto) 0.00 0.04 (0-0.50) K/uL Baso # (Auto) 0.02 0.02 (0-0.2) K/uL Immature Gran # (Auto) 0.11 0.08 (0.01-0.20) K/uL Dohle Bodies Sodium 136 (136-145) mmol/L Potassium 3.9 (3.5-5.1) mmol/L Chloride 104 (98-107) mmol/L Carbon Dioxide 25 (21-32) mmol/L Anion Gap 7 (3-11) BUN 7 (6-23) mg/dl Creatinine 0.79 (0.6-1.2) mg/dl Est Cr Clr Drug Dosing 114.5 ml/min Est GFR ( Amer) 122.3 ml/min Est GFR (Non-Af Amer) 105.5 ml/min BUN/Creatinine Ratio 8.9 L (10-20) Glucose 116 H (70-99(Fasting)) mg/dl Calcium 8.6 (8.6-10.3) mg/dl Total Bilirubin 0.6 (0.2-1.0) mg/dl AST 12 L (13-39) U/L ALT 10 (7-52) U/L Alkaline Phosphatase 50 (34-104) U/L Total Protein 6.2 D (6.0-8.3) gm/dl Albumin 3.6 (3.4-5.0) gm/dl Globulin 2.6 (2.5-4.0) gm/dl Albumin/Globulin Ratio 1.4 (0.9-2) Lipase (11-82) U/L HCG, Qual (Negative) Urine Color Urine Appearance (Clear) Urine pH (4.5-7.5) Ur Specific [place] (1.000-1.030) Urine Protein (Negative) Urine Glucose (UA) (Negative) Urine Ketones (Negative) Urine Blood (Negative) Urine Nitrite (Negative) Urine Bilirubin (Negative) Urine Urobilinogen (Negative) Ur Leukocyte Esterase (Negative) Urine WBC (Auto) (0-5) /hpf Urine RBC (Auto) (0-4) /hpf U Hyaline Cast (Auto) (0-5) /lpf U Epithel Cells (Auto) (0-5) /lpf Urine Bacteria (Auto) (Negative) POC Ur Test (NEG) SARS-CoV-2, RNA, NAAT (NEGATIVE) 10/14/22 10/14/22 10/15/22 Range/Units 06:29 06:29 06:18 WBC 13.81 H 16.03 H (4.8-10.8) K/ul RBC 4.25 4.05 L (4.20-5.40) M/uL Hgb 12.7 12.2 (12.0-16.0) g/dl Hct 38.6 35.7 L (37.0-47.0) % MCV 90.8 88.1 (80.0-100.0) fL MCH 29.9 30.1 (25.0-34.0) pg MCHC 32.9 34.2 (32.0-36.0) g/dL RDW Std Deviation 41.9 40.6 (36.4-46.3) fL RDW Coeff of Janny 12.6 12.5 (11.5-14.5) % Plt Count 354 326 (130-400) K/uL MPV 10.2 10.0 (9.4-12.4) fL Immature Gran % (Auto) 0.5 0.8 % Neut % (Auto) 81.1 76.9 % Lymph % (Auto) 11.3 14.4 % Calloway % (Auto) 6.2 6.5 % Eos % (Auto) 0.7 1.2 % Baso % (Auto) 0.2 0.2 % Neut # (Auto) 11.20 H 12.32 H (1.40-6.50) K/uL Lymph # (Auto) 1.56 2.31 (1.2-3.4) K/uL Calloway # (Auto) 0.85 H 1.04 H (0.11-0.59) K/uL Eos # (Auto) 0.10 0.20 (0-0.50) K/uL Baso # (Auto) 0.03 0.03 (0-0.2) K/uL Immature Gran # (Auto) 0.07 0.13 (0.01-0.20) K/uL Dohle Bodies Sodium 136 (136-145) mmol/L Potassium 3.5 (3.5-5.1) mmol/L Chloride 101 (98-107) mmol/L Carbon Dioxide 24 (21-32) mmol/L Anion Gap 11 (3-11) BUN 7 (6-23) mg/dl Creatinine 0.63 (0.6-1.2) mg/dl Est Cr Clr Drug Dosing 143.6 ml/min Est GFR ( Amer) 146.5 ml/min Est GFR (Non-Af Amer) 126.4 ml/min BUN/Creatinine Ratio 11.1 (10-20) Glucose 94 (70-99(Fasting)) mg/dl Calcium 8.6 (8.6-10.3) mg/dl Total Bilirubin (0.2-1.0) mg/dl AST (13-39) U/L ALT (7-52) U/L Alkaline Phosphatase (34-104) U/L Total Protein (6.0-8.3) gm/dl Albumin (3.4-5.0) gm/dl Globulin (2.5-4.0) gm/dl Albumin/Globulin Ratio (0.9-2) Lipase (11-82) U/L HCG, Qual (Negative) Urine Color Urine Appearance (Clear) Urine pH (4.5-7.5) Ur Specific [place] (1.000-1.030) Urine Protein (Negative) Urine Glucose (UA) (Negative) Urine Ketones (Negative) Urine Blood (Negative) Urine Nitrite (Negative) Urine Bilirubin (Negative) Urine Urobilinogen (Negative) Ur Leukocyte Esterase (Negative) Urine WBC (Auto) (0-5) /hpf Urine RBC (Auto) (0-4) /hpf U Hyaline Cast (Auto) (0-5) /lpf U Epithel Cells (Auto) (0-5) /lpf Urine Bacteria (Auto) (Negative) POC Ur Test (NEG) SARS-CoV-2, RNA, NAAT (NEGATIVE) 10/16/22 10/16/22 10/16/22 Range/Units 07:09 07:10 07:10 WBC 15.38 H (4.8-10.8) K/ul RBC 4.30 (4.20-5.40) M/uL Hgb 12.9 (12.0-16.0) g/dl Hct 38.1 (37.0-47.0) % MCV 88.6 (80.0-100.0) fL MCH 30.0 (25.0-34.0) pg MCHC 33.9 (32.0-36.0) g/dL RDW Std Deviation 41.0 (36.4-46.3) fL RDW Coeff of Janny 12.7 (11.5-14.5) % Plt Count 399 (130-400) K/uL MPV 9.9 (9.4-12.4) fL Immature Gran % (Auto) 0.8 % Neut % (Auto) 80.0 % Lymph % (Auto) 11.5 % Calloway % (Auto) 6.1 % Eos % (Auto) 1.2 % Baso % (Auto) 0.4 % Neut # (Auto) 12.31 H (1.40-6.50) K/uL Lymph # (Auto) 1.77 (1.2-3.4) K/uL Calloway # (Auto) 0.94 H (0.11-0.59) K/uL Eos # (Auto) 0.18 (0-0.50) K/uL Baso # (Auto) 0.06 (0-0.2) K/uL Immature Gran # (Auto) 0.12 (0.01-0.20) K/uL Dohle Bodies Sodium 136 (136-145) mmol/L Potassium 3.3 L (3.5-5.1) mmol/L Chloride 103 (98-107) mmol/L Carbon Dioxide 22 (21-32) mmol/L Anion Gap 11 (3-11) BUN 6 (6-23) mg/dl Creatinine 0.56 L (0.6-1.2) mg/dl Est Cr Clr Drug Dosing 161.6 ml/min Est GFR ( Amer) > 150.0 ml/min Est GFR (Non-Af Amer) 131.4 ml/min BUN/Creatinine Ratio 10.7 (10-20) Glucose 98 (70-99(Fasting)) mg/dl Calcium 8.5 L (8.6-10.3) mg/dl Total Bilirubin 0.3 (0.2-1.0) mg/dl AST 36 (13-39) U/L ALT 26 (7-52) U/L Alkaline Phosphatase 47 (34-104) U/L Total Protein 6.2 (6.0-8.3) gm/dl Albumin 3.4 (3.4-5.0) gm/dl Globulin 2.8 (2.5-4.0) gm/dl Albumin/Globulin Ratio 1.2 (0.9-2) Lipase (11-82) U/L HCG, Qual Negative (Negative) Urine Color Urine Appearance (Clear) Urine pH (4.5-7.5) Ur Specific [place] (1.000-1.030) Urine Protein (Negative) Urine Glucose (UA) (Negative) Urine Ketones (Negative) Urine Blood (Negative) Urine Nitrite (Negative) Urine Bilirubin (Negative) Urine Urobilinogen (Negative) Ur Leukocyte Esterase (Negative) Urine WBC (Auto) (0-5) /hpf Urine RBC (Auto) (0-4) /hpf U Hyaline Cast (Auto) (0-5) /lpf U Epithel Cells (Auto) (0-5) /lpf Urine Bacteria (Auto) (Negative) POC Ur Test (NEG) SARS-CoV-2, RNA, NAAT (NEGATIVE)
[2022-10-16] MEDS: CIPROFLOXACIN / D5W 400 MG/200 ML BAG IV SCH (12:54)
[2022-10-16] MEDS: buPROPion XL 150 MG TABCR PO SCH (14:24)
[2022-10-16] MEDS: DULoxetine HCL 20 MG CAP PO SCH (14:24)
--- NOTE | 2022-10-16 14:39 | XRay Report ---
XR KUB/Abdomen 1 view CLINICAL HISTORY: Vomiting TECHNIQUE: 1 view of the abdomen was obtained. Comparison: Comparison is made to abdomen radiograph 04/23/2022 FINDINGS: Lung bases are unremarkable. The osseous structures are grossly unremarkable. Numerous gas-distended loops of small bowel measure up to 65 mm in diameter. There is a paucity of large bowel gas and stool . IMPRESSION: Gas-distended loops of small bowel with underdistended colon suggestive of small bowel obstruction, l ess likely ileus. ACT 112: Negative or not required by law. Electronically signed by: Elton Hurley M.D. 10/16/2022 2:37 PM
[2022-10-16] MEDS: ondansetron HCL 6 MG in DEXTROSE 5% 50 ML IV PRN (15:17)
[2022-10-16] MEDS ORDERED: OPTIRAY 320 100ml IV ONE (16:15)
--- NOTE | 2022-10-16 16:40 | CT Scan Report ---
ABDOMEN AND PELVIS CT WITH IV AND ORAL CONTRAST CT DOSE: 908.64 mGy.cm HISTORY: Generalized abdominal pain. to R/O bowel obstruction TECHNIQUE: Multiaxial CT images of the abdomen and pelvis were performed following the use of intrave nous and oral contrast. A dose lowering technique was utilized adhering to the principles of ALARA. COMPARISON STUDY: Abdomen and pelvis CT 10/10/2022. FINDINGS: The lung bases are clear. No pneumoperitoneum. No pneumatosis. No acute fractures identifie d. Mild body wall edema is noted. The liver, gallbladder, pancreas, adrenal glands, spleen, and kidne ys are unremarkable. No hydronephrosis. The main portal vein is patent. Normal caliber abdominal aort a. No retroperitoneal lymphadenopathy. The bladder is unremarkable. The uterus and left ovary within normal limits. Small loculated fluid collection within the pelvic cul-de-sac and partially surroundin g the right ovary which measures up to 3 cm. This favors a small abscess. Postoperative collection/se avis could also a similar appearance. There is mild thickening within the adjacent rectum consistent with a nonspecific proctitis. The conus completely decompressed. Status post appendectomy with a surg ical drain within the right lower quadrant. The distal ileum is severely decompressed. There is a foc al transition point at the distal ileum on images 205 through 209 consistent with the site of the hig h-grade small bowel obstruction. This favors adhesions. The small bowel loops proximal to this are se verely dilated and filled with gas and fluid. These measure up to 5.6 cm in diameter. IMPRESSION: 1. High-grade small bowel obstruction with the focal transition point seen within the distal ileum as described above. The exact etiology is indeterminate but favors adhesions. 2. Status post appendectomy with a surgical drain within the right lower quadrant. 3. Small peripheral enhancing fluid collection within the pelvic cul-de-sac and partially surrounding the right ovary which measures up to 3 cm in thickness. This favors an abscess. A postoperative ovidio ection/seroma could also have a similar appearance. 4. Mild thickening within the adjacent rectum which may be due to recent postoperative changes or sec ondary to the small abscess. Therefore, this consistent with a nonspecific proctitis. ACT 112: Negative or not required by law. Electronically signed by: Colten Lua M.D. 10/16/2022 4:39 PM
--- NOTE | 2022-10-16 17:03 | Surgery Progress Note ---
Date of Service October 16, 2022 Assessment & Plan (1) Acute perforated appendicitis: Plan: POD # 3 s/p laparoscopic appendectomy for perforated appendicitis with appendicolith afebrile, vss postop pain controlled + nausea and emesis precious drain with increased output but now serous wbc 16k today, cutlure E. coli + Plan: Given emesis and abdominal distention will revert back to NPO and continue IV pain management Continue pain management as needed, will add IV schedule Tylenol Continue IV cipro and flagyl precious drain to bulb suction incentive spirometry and scds encouraged ambulating, needs to increase ambulation today given mild abd distention and emesis, likely has postop ileus repeat am cbc [facility] surgery covering this weekend, hopeful discharge in next 1-2 days to go home with precious drain f/u surgery office next week 7 days cipro/flagyl Dr. Lara has seen patient and agrees with above. 10/16/2022 12:[address] Lara POD # 6 s/p laparoscopic appendectomy for perforated appendicitis stable, still nausea and vomiting, will consult GI for vomiting, KUB back to flagyl. repeat labs in morning, po zofran 4mg q6h x 2 days. will F/U, 10/16/2022 5:00PM Dr. Lara reviewed CT scan and KUB finding with pt, -SBO, possible caused by inflammation due to perforated appendicitis, pt understood, I answered all questions. OOB, walking on hallway, reglan 10 mg iv q6h x 3 dosages only. miralax repeat labs and KUB in morning, will F/U Admission and Anticipated Discharge Date Admission Date: October 10, 2022 Supervising Physician Co-Signing Physician Notes I performed a history and physical examination of the patient today, including specifically on physical exam - soft abdomen. I have discussed the patient's management with the advanced practitioner. Please refer to the nurse practitioner's note for the documented findings and plan of care. Admitted with perforated appendicitis, s/p lap Appendectomy, now with post operative N/V. Labs with hypokalemia and leukocytosis. I reviewed her KUB which has dilated bowel loops. Stomach is not large. Likely postoperative ileus. Please obtain CT scan of the abdomen with low volume PO contrast as tolerated to r/o SBO. Correct Potassium as she likely has postoperative ileus. Minimize the use of Opioids. If CT scan shows no SBO we can consider Relistor. PRN Antiemetics. Subjective Patient currently resting in bed and appears a little more tired, less interactive this am stating she is tired ans sweaty. She says she has night sweats on a usual basis at home, this is nothing new. She notes that overall she feels somewhat improved from yesterday with less nausea. She states 1 minor episode of nausea when she got up and voided a large amount this am without vomiting. She says she is passing a small amount of flatus and also had a small bowel movement over the past 24 hours. She says she still does not have much of an appetite and feels as though her abdominal pain is the same with some discomfort down the middle of the lower abdomen not complaining of RLQ pain. She says the drainage from the PRECIOUS drain continues to look the same. 10/16/2022 12:09PM Dr. Lara F/U S/P laparoscopic appendectomy for perforated appendicitis, POD 6 pt said she felt better yesterday, pt felt some nausea this morning, and dysuria, pt denies significant abdominal pain, no fever, passed some BM, PRECIOUS 300ml clear color. 10/16/2022 4:54 PM, Dr. Marco JEROME reviewed- SBO, pt has no vomiting today, no fever, no significant abdominal pain, based on KUB finding, I order CT scan with po and IV contrast, I reviewed CT CT scan with radiologist, diagnosis- SBO, I informed pt about KUB and CT scan finding to the pt. Physical Exam Constitutional: WD/WN, vitals as above Eyes: PERRL, conjunctivae normal, anicteric sclerae Neck: trachea midline, no thyromegaly Respiratory: normal respiratory effort, lungs clear to auscultation Cardiovascular: RRR, no murmur, no edema Gastrointestinal (Abdomen): soft, mild distend, no tenderness, all incisions intact, PRECIOUS intact, no rebound pain, BS + Musculoskeletal: no cyanosis or clubbing, extremities motor strength 5/5 Skin: no rashes, warm and dry Neurologic: patellar DTR's 2+ bilat, sensation intact Psychiatric: A+Ox3, euthymic affect Results & Data Vital Signs (Past 12 Hours) Vital Signs Temp Pulse Resp BP Pulse Ox O2 Del Method 10/16/22 08:14 36.6 C 60 17 116/74 95 Room Air Diagnostic Findings KUB- SBO, - report pending CT scan- SBO, report- pending
[2022-10-16] MEDS: POLYETHYLENE (MIRALAX) 17 GM PACK PO SCH (19:30)
[2022-10-16] MEDS: METOCLOPRAMIDE HCL INJ 5 MG/ML 2 ML VIAL IV SCH (19:31)
--- NOTE | 2022-10-16 19:33 | Gastroenterology Progress Note ---
Date of Service October 16, 2022 Assessment & Plan Admission and Anticipated Discharge Date Admission Date: October 10, [address] scan reviewed and showed SBO which explains her symptoms. At this point this is a surgical case and management of her mechanical SBO is per surgical team, no GI role in this. Please recall GI if needed. Results & Data Vital Signs (Past 12 Hours) Vital Signs Temp Pulse Resp BP Pulse Ox O2 Del Method 10/16/22 15:27 36.6 C 90 16 129/86 97 Room Air 10/16/22 08:14 36.6 C 60 17 116/74 95 Room Air
[2022-10-16] MEDS: LACTATED RINGER'S 1,000 ML IV SCH (20:06)
[2022-10-17] MEDS: METOCLOPRAMIDE HCL INJ 5 MG/ML 2 ML VIAL IV SCH ×2 (00:15→05:44)
[2022-10-17] MEDS: CIPROFLOXACIN / D5W 400 MG/200 ML BAG IV SCH ×3 (00:17→23:32)
[2022-10-17] MEDS: HYDROmorphone INJ 0.5 MG/0.5 ML SYR IV PRN ×3 (03:52→21:01)
[2022-10-17] MEDS: metroNIDAZOLE 500 MG/100 ML BAG IV SCH ×3 (05:44→22:24)
--- NOTE | 2022-10-17 07:39 | Surgery Progress Note ---
Date of Service October 17, 2022 Assessment & Plan (1) Acute perforated appendicitis: Plan: POD # 3 s/p laparoscopic appendectomy for perforated appendicitis with appendicolith afebrile, vss postop pain controlled + nausea and emesis precious drain with increased output but now serous wbc 16k today, cutlure E. coli + Plan: Given emesis and abdominal distention will revert back to NPO and continue IV pain management Continue pain management as needed, will add IV schedule Tylenol Continue IV cipro and flagyl precious drain to bulb suction incentive spirometry and scds encouraged ambulating, needs to increase ambulation today given mild abd distention and emesis, likely has postop ileus repeat am cbc [facility] surgery covering this weekend, hopeful discharge in next 1-2 days to go home with precious drain f/u surgery office next week 7 days cipro/flagyl Dr. Lara has seen patient and agrees with above. 10/16/2022 12:[address] Lara POD # 6 s/p laparoscopic appendectomy for perforated appendicitis stable, still nausea and vomiting, will consult GI for vomiting, KUB back to flagyl. repeat labs in morning, po zofran 4mg q6h x 2 days. will F/U, 10/16/2022 5:00PM Dr. Lara reviewed CT scan and KUB finding with pt, -SBO, possible caused by inflammation due to perforated appendicitis, pt understood, I answered all questions. OOB, walking on hallway, reglan 10 mg iv q6h x 3 dosages only. miralax repeat labs and KUB in morning, will F/U 10/17/2022 7:[address] Lara I reviewed CT scan finding with pt, SBO, possible caused by adhesion or inflammation process. I recommend conservative treatment now, NPO, IV fluid, NG tube, but pt dose not want have NG tube insertion now. D/W benefits, risks and alternatives of the NG tube, pt understood, pt is still want to wait. 3 cm pelvic fluid collection, possible abscess, continue iv antibiotic treatment. KUB, labs pending will F/U, Admission and Anticipated Discharge Date Admission Date: October 10, 2022 Supervising Physician Co-Signing Physician Notes I performed a history and physical examination of the patient today, including specifically on physical exam - soft abdomen. I have discussed the patient's management with the advanced practitioner. Please refer to the nurse practitioner's note for the documented findings and plan of care. Admitted with perforated appendicitis, s/p lap Appendectomy, now with post operative N/V. Labs with hypokalemia and leukocytosis. I reviewed her KUB which has dilated bowel loops. Stomach is not large. Likely postoperative ileus. Please obtain CT scan of the abdomen with low volume PO contrast as tolerated to r/o SBO. Correct Potassium as she likely has postoperative ileus. Minimize the use of Opioids. If CT scan shows no SBO we can consider Relistor. PRN Antiemetics. Subjective CT scan reviewed and showed SBO which explains her symptoms. At this point this is a surgical case and management of her mechanical SBO is per surgical team, no GI role in this. Please recall GI if needed. 10/17/2022 7:[address] Lara pt had one time vomiting last night, pt said she feels better now, pt denies abdominal pain, not pass gas or stool yesterday. T 37.2, PRECIOUS 230ml clear fluid, I reviewed CT scan report with pt. Physical Exam Constitutional: WD/WN, vitals as above Eyes: PERRL, conjunctivae normal, anicteric sclerae Neck: trachea midline, no thyromegaly Respiratory: normal respiratory effort, lungs clear to auscultation Cardiovascular: RRR, no murmur, no edema Gastrointestinal (Abdomen): soft, no tenderness, no significant distend, all incision heal well, no redness, PRECIOUS intact, BS +. Musculoskeletal: no cyanosis or clubbing, extremities motor strength 5/5 Skin: no rashes, warm and dry Neurologic: patellar DTR's 2+ bilat, sensation intact Psychiatric: A+Ox3, euthymic affect Results & Data Vital Signs (Past 12 Hours) Vital Signs Temp Pulse Resp BP Pulse Ox O2 Del Method 10/16/22 21:32 37.2 C 77 16 117/74 95 Room Air Diagnostic Findings ABDOMEN AND PELVIS CT WITH IV AND ORAL CONTRAST CT DOSE: 908.64 mGy.cm HISTORY: Generalized abdominal pain. to R/O bowel obstruction TECHNIQUE: Multiaxial CT images of the abdomen and pelvis were performed following the use of intravenous and oral contrast. A dose lowering technique was utilized adhering to the principles of ALARA. COMPARISON STUDY: Abdomen and pelvis CT 10/10/2022. FINDINGS: The lung bases are clear. No pneumoperitoneum. No pneumatosis. No acute fractures identified. Mild body wall edema is noted. The liver, gallbladder, pancreas, adrenal glands, spleen, and kidneys are unremarkable. No hydronephrosis. The main portal vein is patent. Normal caliber abdominal aorta. No retroperitoneal lymphadenopathy. The bladder is unremarkable. The uterus and left ovary within normal limits. Small loculated fluid collection within the pelvic cul-de-sac and partially surrounding the right ovary which measures up to 3 cm. This favors a small abscess. Postoperative collection/seroma could also a similar appearance. There is mild thickening within the adjacent rectum consistent with a nonspecific proctitis. The conus completely decompressed. Status post appendectomy with a surgical drain within the right lower quadrant. The distal ileum is severely decompressed. There is a focal transition point at the distal ileum on images 205 through 209 consistent with the site of the high- grade small bowel obstruction. This favors adhesions. The small bowel loops proximal to this are severely dilated and filled with gas and fluid. These measure up to 5.6 cm in diameter. IMPRESSION: 1. High-grade small bowel obstruction with the focal transition point seen within the distal ileum as described above. The exact etiology is indeterminate but favors adhesions. 2. Status post appendectomy with a surgical drain within the right lower quadrant. 3. Small peripheral enhancing fluid collection within the pelvic cul-de-sac and partially surrounding the right ovary which measures up to 3 cm in thickness. This favors an abscess. A postoperative collection/seroma could also have a similar appearance. 4. Mild thickening within the adjacent rectum which may be due to recent po stoperative changes or secondary to the small abscess. Therefore, this consistent with a nonspecific proctitis. ACT 112: Negative or not required by law.
[2022-10-17 07:55] LABS: Basophils # (auto) 0.03 K/uL (0-0.2); Basophils % (auto) 0.2 %; Eosinophils # (auto) 0.18 K/uL (0-0.50); Eosinophils % (auto) 1.3 %; Hematocrit (blood only) 37.8 % (37.0-47.0); Immature Granulocytes % (auto) 0.7 %; Lymphocytes # (auto) 2.25 K/uL (1.2-3.4); Mean Corpuscular Hgb Conc 34.4 g/dL (32.0-36.0); Mean Corpuscular Volume 87.1 fL (80.0-100.0); Mean Platelet Volume 9.7 fL (9.4-12.4); Monocytes # (auto) 0.84 K/uL (0.11-0.59); Neutrophils # (auto) 10.63 K/uL (1.40-6.50); Neutrophils % (auto) 75.8 %; Platelet Count 401 K/uL (130-400); RDW Coefficient of Variation 12.8 % (11.5-14.5); RDW Standard Deviation 40.7 fL (36.4-46.3); Red Blood Count 4.34 M/uL (4.20-5.40); White Blood Count 14.03 K/ul (4.8-10.8)
[2022-10-17 08:17] LABS: Albumin Globulin Ratio 1.2 (0.9-2); Albumin Level 3.4 gm/dl (3.4-5.0); BUN Creatinine Ratio 7.7 (10-20); Bilirubin,Total 0.4 mg/dl (0.2-1.0); Calcium 8.6 mg/dl (8.6-10.3); Creatinine Clr Calc Pharmacy 139.2 ml/min; Est GFR (Non-African American) 125.1 ml/min; Globulin 2.8 gm/dl (2.5-4.0); Potassium 3.5 mmol/L (3.5-5.1); Total Protein 6.2 gm/dl (6.0-8.3)
[2022-10-17] MEDS: POLYETHYLENE (MIRALAX) 17 GM PACK PO SCH (08:27)
--- NOTE | 2022-10-17 09:20 | XRay Report ---
KUB CLINICAL HISTORY: Small bowel obstruction. COMPARISON STUDY: CT of the abdomen and pelvis and KUB October 16, 2022. FINDINGS: Surgical drain is in place. Multiple loops of significantly dilated small bowel are again n oted. The appearance is similar to prior KUB and CT. No evidence for free air on the supine exam. IMPRESSION: Findings consistent with a persistent small bowel obstruction. ACT 112: Negative or not required by law. Electronically signed by: Geo Winston M.D. 10/17/2022 9:18 AM
[2022-10-17] MEDS: HEPARIN SOD 5,000 UNIT/0.5 ML VIAL SQ SCH ×2 (10:02→21:04)
[2022-10-17] MEDS: D5W AND 1/2NSS + 20MEQ KCL 20 MEQ/1,000 ML BAG IV SCH ×2 (10:03→22:25)
[2022-10-17] MEDS: PANTOprazole 40 MG in SYRINGE 0 ML IV SCH (11:18)
[2022-10-17] MEDS ORDERED: ACETAMINOPHEN 1000 MG/100 ML IV IV STA (12:11)
[2022-10-17] MEDS: buPROPion XL 150 MG TABCR PO SCH (13:06)
[2022-10-17] MEDS: DULoxetine HCL 20 MG CAP PO SCH (13:06)
--- NOTE | 2022-10-17 16:20 | Surgery Progress Note ---
Date of Service October 17, 2022 Assessment & Plan (1) Acute perforated appendicitis: Plan: POD # 3 s/p laparoscopic appendectomy for perforated appendicitis with appendicolith afebrile, vss postop pain controlled + nausea and emesis precious drain with increased output but now serous wbc 16k today, cutlure E. coli + Plan: Given emesis and abdominal distention will revert back to NPO and continue IV pain management Continue pain management as needed, will add IV schedule Tylenol Continue IV cipro and flagyl precious drain to bulb suction incentive spirometry and scds encouraged ambulating, needs to increase ambulation today given mild abd distention and emesis, likely has postop ileus repeat am cbc [facility] surgery covering this weekend, hopeful discharge in next 1-2 days to go home with precious drain f/u surgery office next week 7 days cipro/flagyl Dr. Lara has seen patient and agrees with above. 10/16/2022 12:[address] Lara POD # 6 s/p laparoscopic appendectomy for perforated appendicitis stable, still nausea and vomiting, will consult GI for vomiting, KUB back to flagyl. repeat labs in morning, po zofran 4mg q6h x 2 days. will F/U, 10/16/2022 5:00PM Dr. Lara reviewed CT scan and KUB finding with pt, -SBO, possible caused by inflammation due to perforated appendicitis, pt understood, I answered all questions. OOB, walking on hallway, reglan 10 mg iv q6h x 3 dosages only. miralax repeat labs and KUB in morning, will F/U 10/17/2022 7:[address] Lara I reviewed CT scan finding with pt, SBO, possible caused by adhesion or inflammation process. I recommend conservative treatment now, NPO, IV fluid, NG tube, but pt dose not want have NG tube insertion now. D/W benefits, risks and alternatives of the NG tube, pt understood, pt is still want to wait. 3 cm pelvic fluid collection, possible abscess, continue iv antibiotic treatment. KUB, labs pending will F/U, 10/17/2022 4:20 PM, Dr Lara doing better, passed gas, no nausea, no vomiting, keep NPO now, OOB IV tylenol 1000mg q8h for one day only, repeat labs and KUB tomorrow, update labs and KUB finding with pt, pt understood, I answered all questions. will F/U Admission and Anticipated Discharge Date Admission Date: October 10, 2022 Supervising Physician Co-Signing Physician Notes I performed a history and physical examination of the patient today, including specifically on physical exam - soft abdomen. I have discussed the patient's management with the advanced practitioner. Please refer to the nurse practitioner's note for the documented findings and plan of care. Admitted with perforated appendicitis, s/p lap Appendectomy, now with post operative N/V. Labs with hypokalemia and leukocytosis. I reviewed her KUB which has dilated bowel loops. Stomach is not large. Likely postoperative ileus. Please obtain CT scan of the abdomen with low volume PO contrast as tolerated to r/o SBO. Correct Potassium as she likely has postoperative ileus. Minimize the use of Opioids. If CT scan shows no SBO we can consider Relistor. PRN Antiemetics. Subjective CT scan reviewed and showed SBO which explains her symptoms. At this point this is a surgical case and management of her mechanical SBO is per surgical team, no GI role in this. Please recall GI if needed. 10/17/2022 7:[address] Lara pt had one time vomiting last night, pt said she feels better now, pt denies abdominal pain, not pass gas or stool yesterday. T 37.2, PRECIOUS 230ml clear fluid, I reviewed CT scan report with pt. 10/17/2022 4:[address] Lara passed gas, pt feels much better, no nausea, no vomiting, no fever, walked on hallway., PRECIOUS clear fluid. Physical Exam Constitutional: WD/WN, vitals as above Eyes: PERRL, conjunctivae normal, anicteric sclerae Neck: trachea midline, no thyromegaly Respiratory: normal respiratory effort, lungs clear to auscultation Cardiovascular: RRR, no murmur, no edema Gastrointestinal (Abdomen): soft, NT, ND, all incisions intact, no redness, PRECIOUS intact, BS +. Musculoskeletal: no cyanosis or clubbing, extremities motor strength 5/5 Skin: no rashes, warm and dry Neurologic: patellar DTR's 2+ bilat, sensation intact Psychiatric: A+Ox3, euthymic affect Results & Data Vital Signs (Past 12 Hours) Vital Signs Temp Pulse Resp BP Pulse Ox O2 Del Method 10/17/22 15:43 36.7 C 81 16 128/85 98 Room Air 10/17/22 07:51 36.9 C 79 18 124/84 95 Room Air Laboratory Results Abnormal lab results 10/17/22 10/17/22 Range/Units 07:36 07:36 WBC 14.03 H (4.8-10.8) K/ul Plt Count 401 H (130-400) K/uL Neut # (Auto) 10.63 H (1.40-6.50) K/uL [place] # (Auto) 0.84 H (0.11-0.59) K/uL BUN 5 L (6-23) mg/dl BUN/Creatinine Ratio 7.7 L (10-20) AST 60 H (13-39) U/L ALT 56 H (7-52) U/L Diagnostic Findings KUB CLINICAL HISTORY: Small bowel obstruction. COMPARISON STUDY: CT of the abdomen and pelvis and KUB October 16, 2022. FINDINGS: Surgical drain is in place. Multiple loops of significantly dilated small bowel are again noted. The appearance is similar to prior KUB and CT. No evidence for free air on the supine exam. IMPRESSION: Findings consistent with a persistent small bowel obstruction.
[2022-10-17] MEDS ORDERED: ACETAMINOPHEN 1,000 MG/100 ML VIAL IV PRN (20:10)
[2022-10-17 22:04] LABS: Appearance Urine Clear (Clear); Bacteria Urine Automated Negative (Negative); Bilirubin Urine Negative (Negative); Blood Urine 1+ (Negative); Cast Urine Automated 0 /lpf (0-5); Color Urine Yellow; Epithelial Cell Urine Auto 0-5 /lpf (0-5); Glucose Urine UA Negative (Negative); Ketones Urine 1+ (Negative); Leukocyte Esterase Urine Negative (Negative); Nitrite Urine Negative (Negative); Protein Urine Negative (Negative); RBC Urine Automated 0-4 /hpf (0-4); Specific Gravity Urine 1.003 (1.000-1.030); Urobilinogen Urine Negative (Negative); WBC Urine Automated 0 /hpf (0-5); pH Urine 7.5 (4.5-7.5)
[2022-10-18] MEDS: HYDROmorphone INJ 0.5 MG/0.5 ML SYR IV PRN ×2 (03:48→17:30)
[2022-10-18] MEDS: metroNIDAZOLE 500 MG/100 ML BAG IV SCH ×3 (05:28→21:10)
[2022-10-18 07:08] LABS: Basophils # (auto) 0.02 K/uL (0-0.2); Basophils % (auto) 0.2 %; Eosinophils # (auto) 0.23 K/uL (0-0.50); Eosinophils % (auto) 2.2 %; Hematocrit (blood only) 35.6 % (37.0-47.0); Hemoglobin 12.1 g/dl (12.0-16.0); Immature Granulocytes # (auto) 0.07 K/uL (0.01-0.20); Immature Granulocytes % (auto) 0.7 %; Lymphocytes # (auto) 2.03 K/uL (1.2-3.4); Lymphocytes % (auto) 19.6 %; Mean Corpuscular Hemoglobin 29.7 pg (25.0-34.0); Mean Corpuscular Volume 87.3 fL (80.0-100.0); Mean Platelet Volume 9.8 fL (9.4-12.4); Monocytes # (auto) 0.99 K/uL (0.11-0.59); Monocytes % (auto) 9.6 %; Neutrophils # (auto) 7.02 K/uL (1.40-6.50); Neutrophils % (auto) 67.7 %; Platelet Count 373 K/uL (130-400); RDW Coefficient of Variation 12.8 % (11.5-14.5); RDW Standard Deviation 40.8 fL (36.4-46.3); Red Blood Count 4.08 M/uL (4.20-5.40); White Blood Count 10.36 K/ul (4.8-10.8)
[2022-10-18 07:23] LABS: Albumin Globulin Ratio 1.2 (0.9-2); Bilirubin,Total 0.3 mg/dl (0.2-1.0); Calcium 8.3 mg/dl (8.6-10.3); Creatinine Clr Calc Pharmacy 150.8 ml/min; Est GFR (African American) 148.9 ml/min; Est GFR (Non-African American) 128.5 ml/min; Globulin 2.5 gm/dl (2.5-4.0); Potassium 3.6 mmol/L (3.5-5.1); Total Protein 5.5 gm/dl (6.0-8.3)
[2022-10-18] MEDS: POLYETHYLENE (MIRALAX) 17 GM PACK PO SCH (08:53)
[2022-10-18] MEDS: HEPARIN SOD 5,000 UNIT/0.5 ML VIAL SQ SCH ×2 (08:53→21:10)
--- NOTE | 2022-10-18 09:26 | XRay Report ---
XR KUB/Abdomen 1 view CLINICAL HISTORY: SBO TECHNIQUE: 1 view of the abdomen was obtained. Comparison: Comparison is made to abdomen radiograph 10/17/2022 FINDINGS: Surgical drain is in place. The osseous structures are grossly unremarkable. Numerous gas distended s mall bowel loops are again seen measuring up to 50 mm. A moderate amount of stool is noted within the large bowel. IMPRESSION: Gas-distended loops of bowel are unchanged compatible with small bowel obstruction. ACT 112: Negative or not required by law. Electronically signed by: Elton Hurley M.D. 10/18/2022 9:24 AM
[2022-10-18] MEDS: D5W AND 1/2NSS + 20MEQ KCL 20 MEQ/1,000 ML BAG IV SCH ×2 (10:11→12:00)
[2022-10-18] MEDS: CIPROFLOXACIN / D5W 400 MG/200 ML BAG IV SCH ×2 (11:29→22:15)
[2022-10-18] MEDS: buPROPion XL 150 MG TABCR PO SCH (11:30)
[2022-10-18] MEDS: DULoxetine HCL 20 MG CAP PO SCH (11:30)
[2022-10-18] MEDS: PANTOprazole 40 MG in SYRINGE 0 ML IV SCH (11:32)
--- NOTE | 2022-10-18 11:40 | Surgery Progress Note ---
Date of Service October 18, 2022 Assessment & Plan (1) Acute perforated appendicitis: Plan: POD # 3 s/p laparoscopic appendectomy for perforated appendicitis with appendicolith afebrile, vss postop pain controlled + nausea and emesis precious drain with increased output but now serous wbc 16k today, cutlure E. coli + Plan: Given emesis and abdominal distention will revert back to NPO and continue IV pain management Continue pain management as needed, will add IV schedule Tylenol Continue IV cipro and flagyl precious drain to bulb suction incentive spirometry and scds encouraged ambulating, needs to increase ambulation today given mild abd distention and emesis, likely has postop ileus repeat am cbc [facility] surgery covering this weekend, hopeful discharge in next 1-2 days to go home with precious drain f/u surgery office next week 7 days cipro/flagyl Dr. Lara has seen patient and agrees with above. 10/16/2022 12:[address] Lara POD # 6 s/p laparoscopic appendectomy for perforated appendicitis stable, still nausea and vomiting, will consult GI for vomiting, KUB back to flagyl. repeat labs in morning, po zofran 4mg q6h x 2 days. will F/U, 10/16/2022 5:00PM Dr. Lara reviewed CT scan and KUB finding with pt, -SBO, possible caused by inflammation due to perforated appendicitis, pt understood, I answered all questions. OOB, walking on hallway, reglan 10 mg iv q6h x 3 dosages only. miralax repeat labs and KUB in morning, will F/U 10/17/2022 7:[address] Lara I reviewed CT scan finding with pt, SBO, possible caused by adhesion or inflammation process. I recommend conservative treatment now, NPO, IV fluid, NG tube, but pt dose not want have NG tube insertion now. D/W benefits, risks and alternatives of the NG tube, pt understood, pt is still want to wait. 3 cm pelvic fluid collection, possible abscess, continue iv antibiotic treatment. KUB, labs pending will F/U, 10/17/2022 4:20 PM, Dr Lara doing better, passed gas, no nausea, no vomiting, keep NPO now, OOB IV tylenol 1000mg q8h for one day only, repeat labs and KUB tomorrow, update labs and KUB finding with pt, pt understood, I answered all questions. will F/U 10/18/2022 111:41 AM, Dr. Lara passed BM, tolerated clear diet, no abdominal pain, no fever, WBC 10 Full liquid diet continue IV antibiotic treatment OOB september D/C home tomorrow will F/U. Admission and Anticipated Discharge Date Admission Date: October 10, 2022 Supervising Physician Co-Signing Physician Notes I performed a history and physical examination of the patient today, including specifically on physical exam - soft abdomen. I have discussed the patient's management with the advanced practitioner. Please refer to the nurse practitioner's note for the documented findings and plan of care. Admitted with perforated appendicitis, s/p lap Appendectomy, now with post operative N/V. Labs with hypokalemia and leukocytosis. I reviewed her KUB which has dilated bowel loops. Stomach is not large. Likely postoperative ileus. Please obtain CT scan of the abdomen with low volume PO contrast as tolerated to r/o SBO. Correct Potassium as she likely has postoperative ileus. Minimize the use of Opioids. If CT scan shows no SBO we can consider Relistor. PRN Antiemetics. Subjective CT scan reviewed and showed SBO which explains her symptoms. At this point this is a surgical case and management of her mechanical SBO is per surgical team, no GI role in this. Please recall GI if needed. 10/17/2022 7:[address] Lara pt had one time vomiting last night, pt said she feels better now, pt denies abdominal pain, not pass gas or stool yesterday. T 37.2, PRECIOUS 230ml clear fluid, I reviewed CT scan report with pt. 10/17/2022 4:[address] Lara passed gas, pt feels much better, no nausea, no vomiting, no fever, walked on hallway., PRECIOUS clear fluid. 10/18/2022 11:[address] Lara passed gas and 2 BM, no abdominal pain, no nausea, no vomiting, no ever, tolerated clear diet. PRECIOUS 275ml clear color , WBC down to 10 from 14 Physical Exam Constitutional: WD/WN, vitals as above Eyes: PERRL, conjunctivae normal, anicteric sclerae Neck: trachea midline, no thyromegaly Respiratory: normal respiratory effort, lungs clear to auscultation Cardiovascular: RRR, no murmur, no edema Gastrointestinal (Abdomen): soft, NT, ND, all incisions intact, no redness, PRECIOUS intact, BS +, Musculoskeletal: no cyanosis or clubbing, extremities motor strength 5/5 Skin: no rashes, warm and dry Neurologic: patellar DTR's 2+ bilat, sensation intact Psychiatric: A+Ox3, euthymic affect Results & Data Vital Signs (Past 12 Hours) Vital Signs Temp Pulse Resp BP Pulse Ox O2 Del Method 10/18/22 07:49 36.9 C 83 16 124/82 98 Room Air Laboratory Results Lab Results 10/10/22 10/10/22 10/10/22 Range/Units 15:09 15:27 15:27 WBC 21.18 H (4.8-10.8) K/ul RBC 4.29 (4.20-5.40) M/uL Hgb 13.0 (12.0-16.0) g/dl Hct 38.4 (37.0-47.0) % MCV 89.5 (80.0-100.0) fL MCH 30.3 (25.0-34.0) pg MCHC 33.9 (32.0-36.0) g/dL RDW Std Deviation 39.2 (36.4-46.3) fL RDW Coeff of Janny 12.1 (11.5-14.5) % Plt Count 279 (130-400) K/uL MPV 11.4 (9.4-12.4) fL Immature Gran % (Auto) 0.5 % Neut % (Auto) 87.7 % Lymph % (Auto) 5.8 % Meade % (Auto) 5.8 % Eos % (Auto) 0.0 % Baso % (Auto) 0.2 % Neut # (Auto) 18.59 H (1.40-6.50) K/uL Lymph # (Auto) 1.22 (1.2-3.4) K/uL Meade # (Auto) 1.22 H (0.11-0.59) K/uL Eos # (Auto) 0.00 (0-0.50) K/uL Baso # (Auto) 0.04 (0-0.2) K/uL Immature Gran # (Auto) 0.11 (0.01-0.20) K/uL Dohle Bodies Sodium 135 L (136-145) mmol/L Potassium 3.4 L (3.5-5.1) mmol/L Chloride 102 (98-107) mmol/L Carbon Dioxide 24 (21-32) mmol/L Anion Gap 9 (3-11) BUN 9 (6-23) mg/dl Creatinine 0.81 (0.6-1.2) mg/dl Est Cr Clr Drug Dosing 111.7 ml/min Est GFR ( Amer) 118.6 ml/min Est GFR (Non-Af Amer) 102.4 ml/min BUN/Creatinine Ratio 11.1 (10-20) Glucose 98 (70-99(Fasting)) mg/dl Calcium 9.4 (8.6-10.3) mg/dl Total Bilirubin 0.7 (0.2-1.0) mg/dl AST 17 (13-39) U/L ALT 14 (7-52) U/L Alkaline Phosphatase 68 (34-104) U/L Total Protein 7.9 (6.0-8.3) gm/dl Albumin 4.7 (3.4-5.0) gm/dl Globulin 3.2 (2.5-4.0) gm/dl Albumin/Globulin Ratio 1.5 (0.9-2) Lipase 36 (11-82) U/L HCG, Qual (Negative) Urine Color Urine Appearance (Clear) Urine pH (4.5-7.5) Ur Specific Molina (1.000-1.030) Urine Protein (Negative) Urine Glucose (UA) (Negative) Urine Ketones (Negative) Urine Blood (Negative) Urine Nitrite (Negative) Urine Bilirubin (Negative) Urine Urobilinogen (Negative) Ur Leukocyte Esterase (Negative) Urine WBC (Auto) (0-5) /hpf Urine RBC (Auto) (0-4) /hpf U Hyaline Cast (Auto) (0-5) /lpf U Epithel Cells (Auto) (0-5) /lpf Urine Bacteria (Auto) (Negative) POC Ur Test NEG (NEG) Acetaminophen (10-30) ug/ml SARS-CoV-2, RNA, NAAT (NEGATIVE) 10/10/22 10/10/22 10/11/22 Range/Units 17:05 17:06 06:34 WBC 17.24 H (4.8-10.8) K/ul RBC 3.66 L (4.20-5.40) M/uL Hgb 11.2 L (12.0-16.0) g/dl Hct 33.0 L (37.0-47.0) % MCV 90.2 (80.0-100.0) fL MCH 30.6 (25.0-34.0) pg MCHC 33.9 (32.0-36.0) g/dL RDW Std Deviation 40.2 (36.4-46.3) fL RDW Coeff of Janny 12.3 (11.5-14.5) % Plt Count 218 (130-400) K/uL MPV 11.3 (9.4-12.4) fL Immature Gran % (Auto) 0.2 % Neut % (Auto) 88.4 % Lymph % (Auto) 3.7 % Meade % (Auto) 7.5 % Eos % (Auto) 0.0 % Baso % (Auto) 0.2 % Neut # (Auto) 15.22 H (1.40-6.50) K/uL Lymph # (Auto) 0.64 L (1.2-3.4) K/uL Meade # (Auto) 1.30 H (0.11-0.59) K/uL Eos # (Auto) 0.00 (0-0.50) K/uL Baso # (Auto) 0.04 (0-0.2) K/uL Immature Gran # (Auto) 0.04 (0.01-0.20) K/uL Dohle Bodies Occasional Sodium (136-145) mmol/L Potassium (3.5-5.1) mmol/L Chloride (98-107) mmol/L Carbon Dioxide (21-32) mmol/L Anion Gap (3-11) BUN (6-23) mg/dl Creatinine (0.6-1.2) mg/dl Est Cr Clr Drug Dosing ml/min Est GFR ( Amer) ml/min Est GFR (Non-Af Amer) ml/min BUN/Creatinine Ratio (10-20) Glucose (70-99(Fasting)) mg/dl Calcium (8.6-10.3) mg/dl Total Bilirubin (0.2-1.0) mg/dl AST (13-39) U/L ALT (7-52) U/L Alkaline Phosphatase (34-104) U/L Total Protein (6.0-8.3) gm/dl Albumin (3.4-5.0) gm/dl Globulin (2.5-4.0) gm/dl Albumin/Globulin Ratio (0.9-2) Lipase (11-82) U/L HCG, Qual (Negative) Urine Color Yellow Urine Appearance Cloudy A (Clear) Urine pH 7.0 (4.5-7.5) Ur Specific Molina 1.019 (1.000-1.030) Urine Protein Negative (Negative) Urine Glucose (UA) Negative (Negative) Urine Ketones 3+ H (Negative) Urine Blood Negative (Negative) Urine Nitrite Negative (Negative) Urine Bilirubin Negative (Negative) Urine Urobilinogen Negative (Negative) Ur Leukocyte Esterase 1+ H (Negative) Urine WBC (Auto) 10-30 H (0-5) /hpf Urine RBC (Auto) 0-4 (0-4) /hpf U Hyaline Cast (Auto) 1-5 (0-5) /lpf U Epithel Cells (Auto) >30 H (0-5) /lpf Urine Bacteria (Auto) 2+ H (Negative) POC Ur Test (NEG) Acetaminophen (10-30) ug/ml SARS-CoV-2, RNA, NAAT NEGATIVE (NEGATIVE) 10/11/22 10/12/22 10/13/22 Range/Units 06:34 08:06 07:50 WBC 18.17 H 16.57 H (4.8-10.8) K/ul RBC 4.14 L 4.57 (4.20-5.40) M/uL Hgb 12.5 13.5 (12.0-16.0) g/dl Hct 36.8 L 40.5 (37.0-47.0) % MCV 88.9 88.6 (80.0-100.0) fL MCH 30.2 29.5 (25.0-34.0) pg MCHC 34.0 33.3 (32.0-36.0) g/dL RDW Std Deviation 41.4 40.7 (36.4-46.3) fL RDW Coeff of Janny 12.6 12.6 (11.5-14.5) % Plt Count 249 317 (130-400) K/uL MPV 10.9 10.6 (9.4-12.4) fL Immature Gran % (Auto) 0.6 0.5 % Neut % (Auto) 88.3 82.8 % Lymph % (Auto) 5.4 10.5 % Meade % (Auto) 5.6 5.9 % Eos % (Auto) 0.0 0.2 % Baso % (Auto) 0.1 0.1 % Neut # (Auto) 16.03 H 13.71 H (1.40-6.50) K/uL Lymph # (Auto) 0.99 L 1.74 (1.2-3.4) K/uL Meade # (Auto) 1.02 H 0.98 H (0.11-0.59) K/uL Eos # (Auto) 0.00 0.04 (0-0.50) K/uL Baso # (Auto) 0.02 0.02 (0-0.2) K/uL Immature Gran # (Auto) 0.11 0.08 (0.01-0.20) K/uL Dohle Bodies Sodium 136 (136-145) mmol/L Potassium 3.9 (3.5-5.1) mmol/L Chloride 104 (98-107) mmol/L Carbon Dioxide 25 (21-32) mmol/L Anion Gap 7 (3-11) BUN 7 (6-23) mg/dl Creatinine 0.79 (0.6-1.2) mg/dl Est Cr Clr Drug Dosing 114.5 ml/min Est GFR ( Amer) 122.3 ml/min Est GFR (Non-Af Amer) 105.5 ml/min BUN/Creatinine Ratio 8.9 L (10-20) Glucose 116 H (70-99(Fasting)) mg/dl Calcium 8.6 (8.6-10.3) mg/dl Total Bilirubin 0.6 (0.2-1.0) mg/dl AST 12 L (13-39) U/L ALT 10 (7-52) U/L Alkaline Phosphatase 50 (34-104) U/L Total Protein 6.2 D (6.0-8.3) gm/dl Albumin 3.6 (3.4-5.0) gm/dl Globulin 2.6 (2.5-4.0) gm/dl Albumin/Globulin Ratio 1.4 (0.9-2) Lipase (11-82) U/L HCG, Qual (Negative) Urine Color Urine Appearance (Clear) Urine pH (4.5-7.5) Ur Specific Molina (1.000-1.030) Urine Protein (Negative) Urine Glucose (UA) (Negative) Urine Ketones (Negative) Urine Blood (Negative) Urine Nitrite (Negative) Urine Bilirubin (Negative) Urine Urobilinogen (Negative) Ur Leukocyte Esterase (Negative) Urine WBC (Auto) (0-5) /hpf Urine RBC (Auto) (0-4) /hpf U Hyaline Cast (Auto) (0-5) /lpf U Epithel Cells (Auto) (0-5) /lpf Urine Bacteria (Auto) (Negative) POC Ur Test (NEG) Acetaminophen (10-30) ug/ml SARS-CoV-2, RNA, NAAT (NEGATIVE) 10/14/22 10/14/22 10/15/22 Range/Units 06:29 06:29 06:18 WBC 13.81 H 16.03 H (4.8-10.8) K/ul RBC 4.25 4.05 L (4.20-5.40) M/uL Hgb 12.7 12.2 (12.0-16.0) g/dl Hct 38.6 35.7 L (37.0-47.0) % MCV 90.8 88.1 (80.0-100.0) fL MCH 29.9 30.1 (25.0-34.0) pg MCHC 32.9 34.2 (32.0-36.0) g/dL RDW Std Deviation 41.9 40.6 (36.4-46.3) fL RDW Coeff of Janny 12.6 12.5 (11.5-14.5) % Plt Count 354 326 (130-400) K/uL MPV 10.2 10.0 (9.4-12.4) fL Immature Gran % (Auto) 0.5 0.8 % Neut % (Auto) 81.1 76.9 % Lymph % (Auto) 11.3 14.4 % Meade % (Auto) 6.2 6.5 % Eos % (Auto) 0.7 1.2 % Baso % (Auto) 0.2 0.2 % Neut # (Auto) 11.20 H 12.32 H (1.40-6.50) K/uL Lymph # (Auto) 1.56 2.31 (1.2-3.4) K/uL Meade # (Auto) 0.85 H 1.04 H (0.11-0.59) K/uL Eos # (Auto) 0.10 0.20 (0-0.50) K/uL Baso # (Auto) 0.03 0.03 (0-0.2) K/uL Immature Gran # (Auto) 0.07 0.13 (0.01-0.20) K/uL Dohle Bodies Sodium 136 (136-145) mmol/L Potassium 3.5 (3.5-5.1) mmol/L Chloride 101 (98-107) mmol/L Carbon Dioxide 24 (21-32) mmol/L Anion Gap 11 (3-11) BUN 7 (6-23) mg/dl Creatinine 0.63 (0.6-1.2) mg/dl Est Cr Clr Drug Dosing 143.6 ml/min Est GFR ( Amer) 146.5 ml/min Est GFR (Non-Af Amer) 126.4 ml/min BUN/Creatinine Ratio 11.1 (10-20) Glucose 94 (70-99(Fasting)) mg/dl Calcium 8.6 (8.6-10.3) mg/dl Total Bilirubin (0.2-1.0) mg/dl AST (13-39) U/L ALT (7-52) U/L Alkaline Phosphatase (34-104) U/L Total Protein (6.0-8.3) gm/dl Albumin (3.4-5.0) gm/dl Globulin (2.5-4.0) gm/dl Albumin/Globulin Ratio (0.9-2) Lipase (11-82) U/L HCG, Qual (Negative) Urine Color Urine Appearance (Clear) Urine pH (4.5-7.5) Ur Specific Molina (1.000-1.030) Urine Protein (Negative) Urine Glucose (UA) (Negative) Urine Ketones (Negative) Urine Blood (Negative) Urine Nitrite (Negative) Urine Bilirubin (Negative) Urine Urobilinogen (Negative) Ur Leukocyte Esterase (Negative) Urine WBC (Auto) (0-5) /hpf Urine RBC (Auto) (0-4) /hpf U Hyaline Cast (Auto) (0-5) /lpf U Epithel Cells (Auto) (0-5) /lpf Urine Bacteria (Auto) (Negative) POC Ur Test (NEG) Acetaminophen (10-30) ug/ml SARS-CoV-2, RNA, NAAT (NEGATIVE) 10/16/22 10/16/22 10/16/22 Range/Units 07:09 07:10 07:10 WBC 15.38 H (4.8-10.8) K/ul RBC 4.30 (4.20-5.40) M/uL Hgb 12.9 (12.0-16.0) g/dl Hct 38.1 (37.0-47.0) % MCV 88.6 (80.0-100.0) fL MCH 30.0 (25.0-34.0) pg MCHC 33.9 (32.0-36.0) g/dL RDW Std Deviation 41.0 (36.4-46.3) fL RDW Coeff of Janny 12.7 (11.5-14.5) % Plt Count 399 (130-400) K/uL MPV 9.9 (9.4-12.4) fL Immature Gran % (Auto) 0.8 % Neut % (Auto) 80.0 % Lymph % (Auto) 11.5 % Meade % (Auto) 6.1 % Eos % (Auto) 1.2 % Baso % (Auto) 0.4 % Neut # (Auto) 12.31 H (1.40-6.50) K/uL Lymph # (Auto) 1.77 (1.2-3.4) K/uL Meade # (Auto) 0.94 H (0.11-0.59) K/uL Eos # (Auto) 0.18 (0-0.50) K/uL Baso # (Auto) 0.06 (0-0.2) K/uL Immature Gran # (Auto) 0.12 (0.01-0.20) K/uL Dohle Bodies Sodium 136 (136-145) mmol/L Potassium 3.3 L (3.5-5.1) mmol/L Chloride 103 (98-107) mmol/L Carbon Dioxide 22 (21-32) mmol/L Anion Gap 11 (3-11) BUN 6 (6-23) mg/dl Creatinine 0.56 L (0.6-1.2) mg/dl Est Cr Clr Drug Dosing 161.6 ml/min Est GFR ( Amer) > 150.0 ml/min Est GFR (Non-Af Amer) 131.4 ml/min BUN/Creatinine Ratio 10.7 (10-20) Glucose 98 (70-99(Fasting)) mg/dl Calcium 8.5 L (8.6-10.3) mg/dl Total Bilirubin 0.3 (0.2-1.0) mg/dl AST 36 (13-39) U/L ALT 26 (7-52) U/L Alkaline Phosphatase 47 (34-104) U/L Total Protein 6.2 (6.0-8.3) gm/dl Albumin 3.4 (3.4-5.0) gm/dl Globulin 2.8 (2.5-4.0) gm/dl Albumin/Globulin Ratio 1.2 (0.9-2) Lipase (11-82) U/L HCG, Qual Negative (Negative) Urine Color Urine Appearance (Clear) Urine pH (4.5-7.5) Ur Specific Molina (1.000-1.030) Urine Protein (Negative) Urine Glucose (UA) (Negative) Urine Ketones (Negative) Urine Blood (Negative) Urine Nitrite (Negative) Urine Bilirubin (Negative) Urine Urobilinogen (Negative) Ur Leukocyte Esterase (Negative) Urine WBC (Auto) (0-5) /hpf Urine RBC (Auto) (0-4) /hpf U Hyaline Cast (Auto) (0-5) /lpf U Epithel Cells (Auto) (0-5) /lpf Urine Bacteria (Auto) (Negative) POC Ur Test (NEG) Acetaminophen (10-30) ug/ml SARS-CoV-2, RNA, NAAT (NEGATIVE) 10/17/22 10/17/22 10/17/22 Range/Units 07:36 07:36 16:27 WBC 14.03 H (4.8-10.8) K/ul RBC 4.34 (4.20-5.40) M/uL Hgb 13.0 (12.0-16.0) g/dl Hct 37.8 (37.0-47.0) % MCV 87.1 (80.0-100.0) fL MCH 30.0 (25.0-34.0) pg MCHC 34.4 (32.0-36.0) g/dL RDW Std Deviation 40.7 (36.4-46.3) fL RDW Coeff of Janny 12.8 (11.5-14.5) % Plt Count 401 H (130-400) K/uL MPV 9.7 (9.4-12.4) fL Immature Gran % (Auto) 0.7 % Neut % (Auto) 75.8 % Lymph % (Auto) 16.0 % Meade % (Auto) 6.0 % Eos % (Auto) 1.3 % Baso % (Auto) 0.2 % Neut # (Auto) 10.63 H (1.40-6.50) K/uL Lymph # (Auto) 2.25 (1.2-3.4) K/uL Meade # (Auto) 0.84 H (0.11-0.59) K/uL Eos # (Auto) 0.18 (0-0.50) K/uL Baso # (Auto) 0.03 (0-0.2) K/uL Immature Gran # (Auto) 0.10 (0.01-0.20) K/uL Dohle Bodies Sodium 137 (136-145) mmol/L Potassium 3.5 (3.5-5.1) mmol/L Chloride 103 (98-107) mmol/L Carbon Dioxide 25 (21-32) mmol/L Anion Gap 9 (3-11) BUN 5 L (6-23) mg/dl Creatinine 0.65 (0.6-1.2) mg/dl Est Cr Clr Drug Dosing 139.2 ml/min Est GFR ( Amer) 145.0 ml/min Est GFR (Non-Af Amer) 125.1 ml/min BUN/Creatinine Ratio 7.7 L (10-20) Glucose 91 (70-99(Fasting)) mg/dl Calcium 8.6 (8.6-10.3) mg/dl Total Bilirubin 0.4 (0.2-1.0) mg/dl AST 60 H (13-39) U/L ALT 56 H (7-52) U/L Alkaline Phosphatase 48 (34-104) U/L Total Protein 6.2 (6.0-8.3) gm/dl Albumin 3.4 (3.4-5.0) gm/dl Globulin 2.8 (2.5-4.0) gm/dl Albumin/Globulin Ratio 1.2 (0.9-2) Lipase (11-82) U/L HCG, Qual (Negative) Urine Color Urine Appearance (Clear) Urine pH (4.5-7.5) Ur Specific Molina (1.000-1.030) Urine Protein (Negative) Urine Glucose (UA) (Negative) Urine Ketones (Negative) Urine Blood (Negative) Urine Nitrite (Negative) Urine Bilirubin (Negative) Urine Urobilinogen (Negative) Ur Leukocyte Esterase (Negative) Urine WBC (Auto) (0-5) /hpf Urine RBC (Auto) (0-4) /hpf U Hyaline Cast (Auto) (0-5) /lpf U Epithel Cells (Auto) (0-5) /lpf Urine Bacteria (Auto) (Negative) POC Ur Test (NEG) Acetaminophen < 3 L (10-30) ug/ml SARS-CoV-2, RNA, NAAT (NEGATIVE) 10/17/22 10/18/22 10/18/22 Range/Units 21:45 06:02 06:02 WBC 10.36 (4.8-10.8) K/ul RBC 4.08 L (4.20-5.40) M/uL Hgb 12.1 (12.0-16.0) g/dl Hct 35.6 L (37.0-47.0) % MCV 87.3 (80.0-100.0) fL MCH 29.7 (25.0-34.0) pg MCHC 34.0 (32.0-36.0) g/dL RDW Std Deviation 40.8 (36.4-46.3) fL RDW Coeff of Janny 12.8 (11.5-14.5) % Plt Count 373 (130-400) K/uL MPV 9.8 (9.4-12.4) fL Immature Gran % (Auto) 0.7 % Neut % (Auto) 67.7 % Lymph % (Auto) 19.6 % Meade % (Auto) 9.6 % Eos % (Auto) 2.2 % Baso % (Auto) 0.2 % Neut # (Auto) 7.02 H (1.40-6.50) K/uL Lymph # (Auto) 2.03 (1.2-3.4) K/uL Meade # (Auto) 0.99 H (0.11-0.59) K/uL Eos # (Auto) 0.23 (0-0.50) K/uL Baso # (Auto) 0.02 (0-0.2) K/uL Immature Gran # (Auto) 0.07 (0.01-0.20) K/uL Dohle Bodies Sodium 139 (136-145) mmol/L Potassium 3.6 (3.5-5.1) mmol/L Chloride 106 (98-107) mmol/L Carbon Dioxide 27 (21-32) mmol/L Anion Gap 6 (3-11) BUN 3 L (6-23) mg/dl Creatinine 0.60 (0.6-1.2) mg/dl Est Cr Clr Drug Dosing 150.8 ml/min Est GFR ( Amer) 148.9 ml/min Est GFR (Non-Af Amer) 128.5 ml/min BUN/Creatinine Ratio 5.0 L (10-20) Glucose 104 H (70-99(Fasting)) mg/dl Calcium 8.3 L (8.6-10.3) mg/dl Total Bilirubin 0.3 (0.2-1.0) mg/dl AST 56 H (13-39) U/L ALT 57 H (7-52) U/L Alkaline Phosphatase 42 (34-104) U/L Total Protein 5.5 L (6.0-8.3) gm/dl Albumin 3.0 L (3.4-5.0) gm/dl Globulin 2.5 (2.5-4.0) gm/dl Albumin/Globulin Ratio 1.2 (0.9-2) Lipase (11-82) U/L HCG, Qual (Negative) Urine Color Yellow Urine Appearance Clear (Clear) Urine pH 7.5 (4.5-7.5) Ur Specific Molina 1.003 (1.000-1.030) Urine Protein Negative (Negative) Urine Glucose (UA) Negative (Negative) Urine Ketones 1+ H (Negative) Urine Blood 1+ H (Negative) Urine Nitrite Negative (Negative) Urine Bilirubin Negative (Negative) Urine Urobilinogen Negative (Negative) Ur Leukocyte Esterase Negative (Negative) Urine WBC (Auto) 0 (0-5) /hpf Urine RBC (Auto) 0-4 (0-4) /hpf U Hyaline Cast (Auto) 0 (0-5) /lpf U Epithel Cells (Auto) 0-5 (0-5) /lpf Urine Bacteria (Auto) Negative (Negative) POC Ur Test (NEG) Acetaminophen (10-30) ug/ml SARS-CoV-2, RNA, NAAT (NEGATIVE) Diagnostic Findings XR KUB/Abdomen 1 view CLINICAL HISTORY: SBO TECHNIQUE: 1 view of the abdomen was obtained. Comparison: Comparison is made to abdomen radiograph 10/17/2022 FINDINGS: Surgical drain is in place. The osseous structures are grossly unremarkable. Numerous gas distended small bowel loops are again seen measuring up to 50 mm. A moderate amount of stool is noted within the large bowel. IMPRESSION: Gas-distended loops of bowel are unchanged compatible with small bowel obstruction.
[2022-10-18] MEDS: METOCLOPRAMIDE HCL 10 MG TABLET PO SCH ×2 (13:33→21:10)
[2022-10-18] MEDS: oxyCODONE/ACETAMINOPHEN 5mg/325mg TAB PO PRN ×2 (15:38→22:13)
[2022-10-19] MEDS: HEPARIN SOD 5,000 UNIT/0.5 ML VIAL SQ SCH ×3 (00:13→19:26)
[2022-10-19] MEDS: oxyCODONE/ACETAMINOPHEN 5mg/325mg TAB PO PRN ×3 (05:13→15:37)
[2022-10-19] MEDS: METOCLOPRAMIDE HCL 10 MG TABLET PO SCH (05:13)
[2022-10-19] MEDS: D5W AND 1/2NSS + 20MEQ KCL 20 MEQ/1,000 ML BAG IV SCH (05:15)
[2022-10-19] MEDS: metroNIDAZOLE 500 MG/100 ML BAG IV SCH ×3 (05:15→22:24)
--- NOTE | 2022-10-19 08:15 | Surgery Progress Note ---
Date of Service October 19, 2022 Assessment & Plan (1) Acute perforated appendicitis: Plan: POD # 3 s/p laparoscopic appendectomy for perforated appendicitis with appendicolith afebrile, vss postop pain controlled + nausea and emesis precious drain with increased output but now serous wbc 16k today, cutlure E. coli + Plan: Given emesis and abdominal distention will revert back to NPO and continue IV pain management Continue pain management as needed, will add IV schedule Tylenol Continue IV cipro and flagyl precious drain to bulb suction incentive spirometry and scds encouraged ambulating, needs to increase ambulation today given mild abd distention and emesis, likely has postop ileus repeat am cbc [facility] surgery covering this weekend, hopeful discharge in next 1-2 days to go home with precious drain f/u surgery office next week 7 days cipro/flagyl Dr. Lara has seen patient and agrees with above. 10/16/2022 12:[address] Lara POD # 6 s/p laparoscopic appendectomy for perforated appendicitis stable, still nausea and vomiting, will consult GI for vomiting, KUB back to flagyl. repeat labs in morning, po zofran 4mg q6h x 2 days. will F/U, 10/16/2022 5:00PM Dr. Lara reviewed CT scan and KUB finding with pt, -SBO, possible caused by inflammation due to perforated appendicitis, pt understood, I answered all questions. OOB, walking on hallway, reglan 10 mg iv q6h x 3 dosages only. miralax repeat labs and KUB in morning, will F/U 10/17/2022 7:[address] Lara I reviewed CT scan finding with pt, SBO, possible caused by adhesion or inflammation process. I recommend conservative treatment now, NPO, IV fluid, NG tube, but pt dose not want have NG tube insertion now. D/W benefits, risks and alternatives of the NG tube, pt understood, pt is still want to wait. 3 cm pelvic fluid collection, possible abscess, continue iv antibiotic treatment. KUB, labs pending will F/U, 10/17/2022 4:20 PM, Dr Lara doing better, passed gas, no nausea, no vomiting, keep NPO now, OOB IV tylenol 1000mg q8h for one day only, repeat labs and KUB tomorrow, update labs and KUB finding with pt, pt understood, I answered all questions. will F/U 10/18/2022 111:41 AM, Dr. Lara passed BM, tolerated clear diet, no abdominal pain, no fever, WBC 10 Full liquid diet continue IV antibiotic treatment OOB september D/C home tomorrow will F/U. 10/19/2022 8:[address] Lara tolerated full liquid diet, no nausea, no vomiting, no fever, pt wants to try soft diet today, consult psychiatry for her medicines. miralax KUB today repeat labs CBC, CMP tomorrow, will F/U Admission and Anticipated Discharge Date Admission Date: October 10, 2022 Supervising Physician Co-Signing Physician Notes I performed a history and physical examination of the patient today, including specifically on physical exam - soft abdomen. I have discussed the patient's management with the advanced practitioner. Please refer to the nurse practitioner's note for the documented findings and plan of care. Admitted with perforated appendicitis, s/p lap Appendectomy, now with post operative N/V. Labs with hypokalemia and leukocytosis. I reviewed her KUB which has dilated bowel loops. Stomach is not large. Likely postoperative ileus. Please obtain CT scan of the abdomen with low volume PO contrast as tolerated to r/o SBO. Correct Potassium as she likely has postoperative ileus. Minimize the use of Opioids. If CT scan shows no SBO we can consider Relistor. PRN Antiemetics. Subjective CT scan reviewed and showed SBO which explains her symptoms. At this point this is a surgical case and management of her mechanical SBO is per surgical team, no GI role in this. Please recall GI if needed. 10/17/2022 7:[address] Lara pt had one time vomiting last night, pt said she feels better now, pt denies abdominal pain, not pass gas or stool yesterday. T 37.2, PRECIOUS 230ml clear fluid, I reviewed CT scan report with pt. 10/17/2022 4:[address] Lara passed gas, pt feels much better, no nausea, no vomiting, no fever, walked on hallway., PRECIOUS clear fluid. 10/18/2022 11:[address] Lara passed gas and 2 BM, no abdominal pain, no nausea, no vomiting, no ever, tolerated clear diet. PRECIOUS 275ml clear color , WBC down to 10 from 14 10/19/2022 8:[address] Lara F/U S/P laparoscopic appendectomy, POD 9 still pass gas, tolerated full liquid diet, no nausea, no vomiting. no fever. PRECIOUS 300ml, clear pt also mention her psychiatry retired last 2 weeks, pt wants to consult psychiatry for her medicines, pt denies depression symptoms during hospital stay. only night sweats. Physical Exam Constitutional: WD/WN, vitals as above Eyes: PERRL, conjunctivae normal, anicteric sclerae Neck: trachea midline, no thyromegaly Respiratory: normal respiratory effort, lungs clear to auscultation Cardiovascular: RRR, no murmur, no edema Gastrointestinal (Abdomen): soft, no tenderness, no distend, all incisions intact, no redness, PRECIOUS intact Musculoskeletal: no cyanosis or clubbing, extremities motor strength 5/5 Skin: no rashes, warm and dry Neurologic: patellar DTR's 2+ bilat, sensation intact Psychiatric: A+Ox3, euthymic affect Results & Data Vital Signs (Past 12 Hours) Vital Signs Temp Pulse Resp BP Pulse Ox O2 Del Method 10/19/22 07:56 36.8 C 73 16 95/67 L 97 Room Air 10/18/22 22:25 36.5 C 94 H 18 126/84 98 Room Air
[2022-10-19] MEDS: POLYETHYLENE (MIRALAX) 17 GM PACK PO SCH ×2 (08:33→09:38)
[2022-10-19] MEDS: buPROPion XL 150 MG TABCR PO SCH (11:51)
[2022-10-19] MEDS: DULoxetine HCL 20 MG CAP PO SCH ×2 (11:51→13:52)
[2022-10-19] MEDS: CIPROFLOXACIN / D5W 400 MG/200 ML BAG IV SCH ×2 (11:51→22:25)
--- NOTE | 2022-10-19 13:08 | Psychiatric Consultation ---
Date of Consultation October 19, 2022 Impression / Recommendations Impression 22 yo woman with a history of depression admitted medically for perforated appendicitis s/p appendectomy. Had been off her Wellbutrin and Cymbalta due to recent GI symptoms, will re-titrate Cymbalta, hold off on Wellbutrin given recent side effects likely from dual NE effects (night sweating). Discussed medication treatment options in detail. Discussed risks, benefits and alternatives. Patient would like to start and consented to Cymbalta for depression. Reviewed side effects including but not limited to: GI, SHAH, sexual side effects, and counseled on black box warning of potential for emergence of or increased SI and need to let staff know should this occur or should they feel unsafe. Also discussed importance of seeking emergency care following discharge if this side effect occurs in the future. (1) Acute perforated appendicitis: (2) Medication care plan discussed with patient: (3) Depression: Plan -Stop Wellbutrin 150mg XL -Start Cymbalta 20mg daily with food, can increase to 40mg daily in 5 days if tolerating well. Would recommend discharging her with a script for this. -Will be re-establishing with her outpt therapist soon -Provided with local mental health resources including options for local psychiatry if she becomes interested in this. -CM to set her up with a new PCP Psych History Identifying Data 22 yo woman with a history of depression admitted medically for perforated appendicitis s/p appendectomy. Chief Complaint "Yeah I knew I shouldn't necessarily restart all my psychiatric medications". History of Present Illness Abby reports stable mood and is feeling physically much better now that she is s/p appendectomy. She denies any SI and feels safe returning home once medically stable. She had been on Wellbutrin XL 150mg qd and Cymbalta 40mg qd over the last 8 months but had to stop these about 10 days ago due to worsening stomach issues now known to be due to appendicitis. She is now feeling better and wants to restart psychiatric medication but knows she had to titrate doses in the past and wanted to meet with me to discuss options for restarting these. Reviewed that she had a lot of night sweats with combo of Wellbutrin and Cymbalta and reviewed that dual NE activity can lead to more side effects. Given that she feels her mood is fairly stable right now she prefers to restart just the Cymbalta. Discussed option to start at lower dose and titrate in a few days depending on how well she is tolerating it which is her preference. She is starting a new job soon and then will restart outpatient therapy. Psych liaison provided her with outpatient resources and we discussed local crisis services and options for local psychiatric treatment. CM is getting her set up with a new PCP as well. Allergies Allergy/AdvReac Type Severity Reaction Status Date / Time No Known Allergies Allergy Unverified 10/10/22 18:47 Home Medications Medication Instructions Recorded Confirmed Type bupropion HCl 150 mg 24 hr tablet, 150 mg PO QAM 10/10/22 10/10/22 History extended release duloxetine 20 mg capsule,delayed 20 mg PO BID 10/10/22 10/10/22 History release ciprofloxacin HCl 500 mg tablet 500 mg PO BID #14 tabs 10/13/22 Rx metronidazole 500 mg tablet 500 mg PO TID #21 tabs 10/13/22 Rx oxycodone-acetaminophen 5 mg-325 1 tab PO Q6H PRN pain #12 tabs 10/13/22 Rx mg tablet Patient History Medical History No chronic diseases present Surgical History No significant past surgical history [place] teeth extracted Social History Smoking Status: Never smoker Second Hand Exposure: No; Do You Dip or Chew Tobacco: No; Hx Alcohol Use: No Hx Substance Use: Yes Last Used Substance: Days (ago) Last Used Substance Other:: Has medical card for marijuana. Preferred Language: Vietnamese Communication Ability: Effective Customer Sales Consultant Required: No Beliefs That Will Affect Care: None Current Living Situation: Significant Other Feels Safe at Home: Yes Assistive Devices: None Physical Exam Psychiatric: Orientation: alert and oriented x 3 Apperance: appropriately dressed and appropriately groomed Eye Contact: good eye contact Motor Behavior: no abnormal motor movements Speech: normal rate/rhythm/volume of speech Affect: euthymic affect (smiling) Mood: no depressed mood and no anxious mood Thought Process: linear/logical thought process Thought Content: reality based without delusions Suicidal Thoughts: denies suicidal thoughts Homicidal Thoughts: denies homicidal thoughts Hallucinations: no auditory hallucinations and no visual hallucinations Cognition: recent memory grossly intact, remote memory grossly intact, attention grossly intact and language grossly intact Estimated Intelligence: consistent with education level Insight: + fair insight Judgment: + fair judgement Vital Signs (Past 24 Hours): Last Vital Signs Temp 36.8 C 10/19/22 07:56 Pulse 73 10/19/22 07:56 Resp 16 10/19/22 07:56 BP 95/67 L 10/19/22 07:56 Pulse Ox 97 10/19/22 07:56 O2 Del Method Room Air 10/19/22 07:56 O2 Flow Rate 2 10/10/22 21:50 Review of Systems All systems reviewed & are unremarkable except as noted in HPI & below Results & Data (PSY) Laboratory Results Na+ normal Medications Administered Acetaminophen (Acetaminophen 325 Mg Tab) 650 mg PO Q4H PRN PRN Reason: mild pain Stop: 11/10/22 08:41 Last Admin: 10/15/22 16:22 Dose: 650 mg Documented By: LAURENCE Al Hydrox/Mg Hydrox/Simethicone (Aluminum/Magnesium/Simeth (Maalox Max) 30 Ml Udc) 30 ml PO Q6H PRN PRN Reason: Gas or Constipation Stop: 11/10/22 19:28 Last Admin: 10/11/22 19:37 Dose: 30 ml Documented By: RAOUL Heparin Sodium (Porcine) (Heparin Sod 5,000 Unit/0.5 Ml Vial) 5,000 units SQ Q1 2 PENNY Stop: 11/13/22 08:59 Last Admin: 10/19/22 08:33 Dose: 5,000 units Documented By: Admin: 10/19/22 00:13 Dose: Not Given Documented By: Admin: 10/18/22 08:53 Dose: 5,000 units Documented By: Admin: 10/17/22 21:04 Dose: Not Given Documented By: Admin: 10/17/22 10:02 Dose: Not Given Documented By: Admin: 10/16/22 20:07 Dose: Not Given Documented By: Admin: 10/16/22 10:18 Dose: Not Given Documented By: Admin: 10/15/22 20:30 Dose: Not Given Documented By: Admin: 10/15/22 10:26 Dose: Not Given Documented By: Admin: 10/14/22 21:09 Dose: Not Given Documented By: Admin: 10/14/22 08:58 Dose: 5,000 units Documented By: DMOpal Hydromorphone HCl (Hydromorphone Inj 0.5 Mg/0.5 Ml Syr) 0.5 mg IV Q6H PRN PRN Reason: Pain 6-10 Stop: 10/24/22 22:26 Last Admin: 10/18/22 17:30 Dose: 0.5 mg Documented By: Admin: 10/18/22 03:48 Dose: 0.5 mg Documented By: Admin: 10/17/22 21:01 Dose: 0.5 mg Documented By: Admin: 10/17/22 13:01 Dose: 0.5 mg Documented By: Admin: 10/17/22 03:52 Dose: 0.5 mg Documented By: Admin: 10/15/22 20:30 Dose: 0.5 mg Documented By: Admin: 10/13/22 04:23 Dose: 0.5 mg Documented By: Admin: 10/12/22 22:21 Dose: 0.5 mg Documented By: Admin: 10/12/22 16:20 Dose: 0.5 mg Documented By: Admin: 10/12/22 10:09 Dose: 0.5 mg Documented By: Admin: 10/12/22 04:10 Dose: 0.5 mg Documented By: Admin: 10/11/22 21:43 Dose: 0.5 mg Documented By: Admin: 10/11/22 15:47 Dose: 0.5 mg Documented By: Admin: 10/11/22 10:28 Dose: 0.5 mg Documented By: Admin: 10/11/22 06:14 Dose: 0.5 mg Documented By: Admin: 10/10/22 23:16 Dose: 0.5 mg Documented By: ISAÍAS Ondansetron HCl 6 mg/ Dextrose 53 mls @ 200 mls/hr IV Q6H PRN PRN Reason: Nausea And Vomiting Stop: 11/11/22 03:54 Last Infusion: 10/16/22 15:55 Dose: 0 mls/hr Documented By: Admin: 10/16/22 15:17 Dose: 200 mls/hr Documented By: Infusion: 10/12/22 08:58 Dose: 0 mls/hr Documented By: Admin: 10/12/22 08:36 Dose: 200 mls/hr Documented By: SOPHIE Promethazine HCl 12.5 mg/ (Sodium Chloride) 50.5 mls @ 202 mls/hr IV Q6H PRN PRN Reason: Nausea And Vomiting Stop: 11/11/22 03:54 Last Infusion: 10/16/22 23:07 Dose: 0 mls/hr Documented By: Admin: 10/16/22 22:36 Dose: 202 mls/hr Documented By: Infusion: 10/16/22 11:00 Dose: 0 mls/hr Documented By: Admin: 10/16/22 10:40 Dose: 202 mls/hr Documented By: Infusion: 10/16/22 03:25 Dose: 0 mls/hr Documented By: Admin: 10/16/22 03:09 Dose: 202 mls/hr Documented By: Infusion: 10/15/22 17:52 Dose: 0 mls/hr Documented By: Admin: 10/15/22 17:13 Dose: 202 mls/hr Documented By: Infusion: 10/14/22 21:20 Dose: 0 mls/hr Documented By: Admin: 10/14/22 21:03 Dose: 202 mls/hr Documented By: Infusion: 10/14/22 14:44 Dose: 0 mls/hr Documented By: Admin: 10/14/22 14:17 Dose: 202 mls/hr Documented By: Infusion: 10/14/22 01:30 Dose: 0 mls/hr Documented By: Admin: 10/14/22 01:05 Dose: 202 mls/hr Documented By: Infusion: 10/13/22 19:13 Dose: 0 mls/hr Documented By: Admin: 10/13/22 18:33 Dose: 202 mls/hr Documented By: Infusion: 10/13/22 11:38 Dose: 0 mls/hr Documented By: Admin: 10/13/22 10:15 Dose: 202 mls/hr Documented By: Infusion: 10/12/22 23:52 Dose: 0 mls/hr Documented By: Admin: 10/12/22 23:37 Dose: 202 mls/hr Documented By: Infusion: 10/12/22 17:01 Dose: 0 mls/hr Documented By: Admin: 10/12/22 16:20 Dose: 202 mls/hr Documented By: Infusion: 10/12/22 05:09 Dose: 0 mls/hr Documented By: SJSahil Admin: 10/12/22 04:10 Dose: 202 mls/hr Documented By: RAOUL Ciprofloxacin (Cipro / D5w) 400 mg in 200 mls @ 100 mls/hr IV Q12H PENNY; Protocol Stop: 10/22/22 11:29 Last Admin: 10/19/22 11:51 Dose: 100 mls/hr Documented By: AABre Infusion: 10/19/22 00:27 Dose: 0 mls/hr Documented By: Admin: 10/18/22 22:15 Dose: 100 mls/hr Documented By: Infusion: 10/18/22 14:42 Dose: 0 mls/hr Documented By: Infusion: 10/18/22 14:42 Dose: 0 mls/hr Documented By: Infusion: 10/18/22 13:31 Dose: 100 mls/hr Documented By: Infusion: 10/18/22 11:50 Dose: 0 mls/hr Documented By: Admin: 10/18/22 11:29 Dose: 100 mls/hr Documented By: Infusion: 10/18/22 01:32 Dose: 0 mls/hr Documented By: Admin: 10/17/22 23:32 Dose: 100 mls/hr Documented By: Infusion: 10/17/22 13:55 Dose: 0 mls/hr Documented By: Admin: 10/17/22 11:28 Dose: 100 mls/hr Documented By: Infusion: 10/17/22 02:17 Dose: 0 mls/hr Documented By: Admin: 10/17/22 00:17 Dose: 100 mls/hr Documented By: Infusion: 10/16/22 14:55 Dose: 0 mls/hr Documented By: Admin: 10/16/22 12:54 Dose: 100 mls/hr Documented By: Infusion: 10/16/22 01:42 Dose: 0 mls/hr Documented By: Admin: 10/15/22 23:38 Dose: 100 mls/hr Documented By: Infusion: 10/15/22 14:20 Dose: 0 mls/hr Documented By: Admin: 10/15/22 12:17 Dose: 100 mls/hr Documented By: Infusion: 10/15/22 01:10 Dose: 0 mls/hr Documented By: Admin: 10/14/22 22:53 Dose: 100 mls/hr Documented By: Infusion: 10/14/22 14:17 Dose: 0 mls/hr Documented By: Admin: 10/14/22 11:52 Dose: 100 mls/hr Documented By: Infusion: 10/14/22 00:47 Dose: 0 mls/hr Documented By: Admin: 10/13/22 22:45 Dose: 100 mls/hr Documented By: Infusion: 10/13/22 15:56 Dose: 0 mls/hr Documented By: Admin: 10/13/22 13:34 Dose: 100 mls/hr Documented By: Infusion: 10/13/22 02:20 Dose: 0 mls/hr Documented By: Admin: 10/13/22 00:12 Dose: 100 mls/hr Documented By: Infusion: 10/12/22 15:48 Dose: 0 mls/hr Documented By: Admin: 10/12/22 13:38 Dose: 100 mls/hr Documented By: SOPHIE Metronidazole (Flagyl) 500 mg in 100 mls @ 100 mls/hr IV Q8 PENNY Stop: 10/21/22 23:59 Last Infusion: 10/19/22 06:08 Dose: 0 mls/hr Documented By: Admin: 10/19/22 05:15 Dose: 100 mls/hr Documented By: Infusion: 10/18/22 22:12 Dose: 0 mls/hr Documented By: Admin: 10/18/22 21:10 Dose: 100 mls/hr Documented By: Infusion: 10/18/22 16:46 Dose: 0 mls/hr Documented By: Admin: 10/18/22 15:36 Dose: 100 mls/hr Documented By: Infusion: 05/24/23 06:28 Dose: 0 mls/hr Documented By: Admin: 10/18/22 05:28 Dose: 100 mls/hr Documented By: Infusion: 10/17/22 23:26 Dose: 0 mls/hr Documented By: Admin: 10/17/22 22:24 Dose: 100 mls/hr Documented By: Infusion: 10/17/22 16:31 Dose: 0 mls/hr Documented By: Admin: 10/17/22 14:36 Dose: 100 mls/hr Documented By: Infusion: 10/17/22 06:50 Dose: 0 mls/hr Documented By: Admin: 10/17/22 05:44 Dose: 100 mls/hr Documented By: Infusion: 10/17/22 00:30 Dose: 0 mls/hr Documented By: Admin: 10/16/22 23:30 Dose: 100 mls/hr Documented By: Infusion: 10/16/22 19:05 Dose: 0 mls/hr Documented By: Admin: 10/16/22 18:01 Dose: 100 mls/hr Documented By: Infusion: 10/16/22 12:45 Dose: 0 mls/hr Documented By: Admin: 10/16/22 11:02 Dose: 100 mls/hr Documented By: LAURENCE Potassium Chloride/Dextrose/Sod Cl (D5w And 1/2nss + 20meq Kcl) 20 meq in 1,000 mls @ 50 mls/hr IV .Q20H PENNY; Protocol Stop: 11/17/22 11:59 Last Admin: 10/19/22 05:15 Dose: 50 mls/hr Documented By: Infusion: 10/19/22 05:14 Dose: 0 mls/hr Documented By: Admin: 10/18/22 12:00 Dose: 50 mls/hr Documented By: SHAUNA Oxycodone/Acetaminophen (Oxycodone/Acetaminophen 5mg/325mg Tab) 1 tab PO Q4H PRN PRN Reason: Pain 1-5 Stop: 10/24/22 22:26 Last Admin: 10/19/22 09:56 Dose: 1 tab Documented By: JOSÉ MIGUEL Admin: 10/19/22 05:13 Dose: 1 tab Documented By: Admin: 10/18/22 22:13 Dose: 1 tab Documented By: Admin: 10/18/22 15:38 Dose: 1 tab Documented By: Admin: 10/12/22 08:03 Dose: 1 tab Documented By: Admin: 10/11/22 23:40 Dose: 1 tab Documented By: ALMA ROSAR Admin: 10/11/22 19:36 Dose: 1 tab Documented By: Admin: 10/11/22 14:39 Dose: 1 tab Documented By: Admin: 10/11/22 09:55 Dose: 1 tab Documented By: Admin: 10/11/22 00:29 Dose: 1 tab Documented By: ISAÍAS Polyethylene Glycol (Polyethylene (Miralax) 17 Gm Pack) 17 gm PO DAILY PENNY Stop: 11/15/22 16:59 Last Admin: 10/19/22 08:33 Dose: 17 gm Documented By: JOSÉM IGUEL Admin: 10/18/22 08:53 Dose: Not Given Documented By: Admin: 10/17/22 08:27 Dose: Not Given Documented By: Admin: 10/16/22 19:30 Dose: 17 gm Documented By: LAURENCE Polyethylene Glycol (Polyethylene (Miralax) 17 Gm Pack) 17 gm PO DAILY PENNY Stop: 11/18/22 08:59 Last Admin: 10/19/22 09:38 Dose: Not Given Documented By: JOSÉ MIGUEL Coding Level of Care Code 02649 IN/OBS CONSULT LVL 3,45M Diagnoses Acute perforated appendicitis K35.32 Medication care plan discussed with patient Z71.89 Depression F32.A Time Spent (min) 45
[2022-10-19] MEDS: ACETAMINOPHEN 325 MG TAB PO PRN (13:37)
--- NOTE | 2022-10-19 14:53 | XRay Report ---
XR KUB/Abdomen 1 view CLINICAL HISTORY: SBO TECHNIQUE: 1 view of the abdomen was obtained. Comparison: Comparison is made to abdomen radiograph 10/18/2022 FINDINGS: Surgical drain is stable. The osseous structures are grossly unremarkable. Multiple gas-distended loo ps of small bowel are again seen measuring up to 47 mm in diameter. Small stool burden is seen. IMPRESSION: Redemonstration of small bowel obstruction. ACT 112: Negative or not required by law. Electronically signed by: Elton Hurley M.D. 10/19/2022 2:52 PM
[2022-10-20] MEDS: HYDROmorphone INJ 0.5 MG/0.5 ML SYR IV PRN (02:45)
[2022-10-20] MEDS: D5W AND 1/2NSS + 20MEQ KCL 20 MEQ/1,000 ML BAG IV SCH (02:47)
[2022-10-20] MEDS: metroNIDAZOLE 500 MG/100 ML BAG IV SCH ×2 (05:52→14:47)
[2022-10-20 07:48] LABS: Basophils # (auto) 0.04 K/uL (0-0.2); Basophils % (auto) 0.4 %; Eosinophils # (auto) 0.13 K/uL (0-0.50); Eosinophils % (auto) 1.3 %; Hematocrit (blood only) 39.5 % (37.0-47.0); Hemoglobin 13.4 g/dl (12.0-16.0); Immature Granulocytes # (auto) 0.05 K/uL (0.01-0.20); Immature Granulocytes % (auto) 0.5 %; Lymphocytes # (auto) 1.59 K/uL (1.2-3.4); Lymphocytes % (auto) 15.3 %; Mean Corpuscular Hgb Conc 33.9 g/dL (32.0-36.0); Mean Corpuscular Volume 88.4 fL (80.0-100.0); Mean Platelet Volume 9.6 fL (9.4-12.4); Monocytes # (auto) 0.61 K/uL (0.11-0.59); Monocytes % (auto) 5.9 %; Neutrophils # (auto) 7.95 K/uL (1.40-6.50); Neutrophils % (auto) 76.6 %; Platelet Count 424 K/uL (130-400); RDW Coefficient of Variation 12.8 % (11.5-14.5); RDW Standard Deviation 41.1 fL (36.4-46.3); Red Blood Count 4.47 M/uL (4.20-5.40); White Blood Count 10.37 K/ul (4.8-10.8)
[2022-10-20 08:20] LABS: Potassium 4.4 mmol/L (3.5-5.1)
[2022-10-20 08:21] LABS: Albumin Globulin Ratio 1.3 (0.9-2); Albumin Level 3.5 gm/dl (3.4-5.0); BUN Creatinine Ratio 4.5 (10-20); Bilirubin,Total 0.4 mg/dl (0.2-1.0); Est GFR (African American) 143.6 ml/min; Est GFR (Non-African American) 123.9 ml/min; Globulin 2.7 gm/dl (2.5-4.0); Total Protein 6.2 gm/dl (6.0-8.3)
[2022-10-20] MEDS: HEPARIN SOD 5,000 UNIT/0.5 ML VIAL SQ SCH (08:35)
[2022-10-20] MEDS: POLYETHYLENE (MIRALAX) 17 GM PACK PO SCH ×2 (08:35)
[2022-10-20] MEDS ORDERED: KETOROLAC 30 MG/ML VIAL IV PRN (09:52)
[2022-10-20] MEDS ORDERED: DOCUSATE SODIUM 100 MG CAP PO SCH (10:00)
--- NOTE | 2022-10-20 10:24 | Surgery Progress Note ---
Date of Service October 20, 2022 Assessment & Plan (1) Acute perforated appendicitis: Plan: POD # 10 s/p laparoscopic appendectomy for perforated appendicitis with appendicolith afebrile, vss postop pain controlled precious drain with serous output Leukocytosis resolved, culture E. coli + SBO likely secondary to adhesions - tolerating advanced diet but slow return of bowel function, hx of constipation at baseline for years. Plan: continue soft diet continue Miralax daily will add another dose at noon Colace BID d/c IV fluids since taking PO well continue IV abx until discharge encouraged ambulation IV Toradol for breakthrough pain as needed, discontinue IV dilaudid. PO Percocet and Tylenol as needed. Dr. Lara has seen and examined pt, agrees with above. Admission and Anticipated Discharge Date Admission Date: October 10, 2022 Subjective feeling okay, tired this morning passed only small amount of gas last night and this morning, last bowel movement was yesterday nothing so far today tolerating advancement of diet but does feel full and slightly bloated around 1 pm feels the gas moving but then doesn't feel like it is going h walking hallway no vomiting Physical Exam Constitutional: WD/WN, vitals as above no acute distress and not ill appearing Respiratory: normal respiratory effort; no respiratory distress Gastrointestinal (Abdomen): Inspection/Auscultation: abdomen normal to inspection, + abdomen distended (mildly), + abdominal surgical incision (covered with steri strips), + abdominal surgical drain present (serous) and + hypoactive bowel sounds; + abnormal bowel sounds Percussion/Palpation: + abdomen tender (mild tenderness in RLQ) and abdomen soft; no guarding, abdomen not rigid and abdomen not firm Skin: no rashes, warm and dry Psychiatric: Orientation: alert and oriented x 3 Results & Data Vital Signs (Past 12 Hours) Vital Signs Temp Pulse Pulse Resp BP BP Pulse Ox 10/20/22 09:30 36.3 C L 102 H 16 110/64 98 10/20/22 07:45 36.7 C 84 16 116/80 97 10/19/22 22:39 36.9 C 82 16 108/75 97 O2 Del Method 10/20/22 09:30 Room Air 10/20/22 07:45 Room Air 10/19/22 22:39 Room Air Laboratory Results 05/26/23 05/26/23 Range/Units 07:20 07:20 WBC 10.37 (4.8-10.8) K/ul RBC 4.47 (4.20-5.40) M/uL Hgb 13.4 (12.0-16.0) g/dl Hct 39.5 (37.0-47.0) % MCV 88.4 (80.0-100.0) fL MCH 30.0 (25.0-34.0) pg MCHC 33.9 (32.0-36.0) g/dL RDW Std Deviation 41.1 (36.4-46.3) fL RDW Coeff of Janny 12.8 (11.5-14.5) % Plt Count 424 H (130-400) K/uL MPV 9.6 (9.4-12.4) fL Immature Gran % (Auto) 0.5 % Neut % (Auto) 76.6 % Lymph % (Auto) 15.3 % Cochran % (Auto) 5.9 % Eos % (Auto) 1.3 % Baso % (Auto) 0.4 % Neut # (Auto) 7.95 H (1.40-6.50) K/uL Lymph # (Auto) 1.59 (1.2-3.4) K/uL Cochran # (Auto) 0.61 H (0.11-0.59) K/uL Eos # (Auto) 0.13 (0-0.50) K/uL Baso # (Auto) 0.04 (0-0.2) K/uL Immature Gran # (Auto) 0.05 (0.01-0.20) K/uL Sodium 137 (136-145) mmol/L Potassium 4.4 (3.5-5.1) mmol/L Chloride 105 (98-107) mmol/L Carbon Dioxide 28 (21-32) mmol/L Anion Gap 4 (3-11) BUN 3 L (6-23) mg/dl Creatinine 0.67 (0.6-1.2) mg/dl Est Cr Clr Drug Dosing 135.0 ml/min Est GFR ( Amer) 143.6 ml/min Est GFR (Non-Af Amer) 123.9 ml/min BUN/Creatinine Ratio 4.5 L (10-20) Glucose 104 H (70-99(Fasting)) mg/dl Calcium 9.0 (8.6-10.3) mg/dl Total Bilirubin 0.4 (0.2-1.0) mg/dl AST 34 (13-39) U/L ALT 50 (7-52) U/L Alkaline Phosphatase 46 (34-104) U/L Total Protein 6.2 (6.0-8.3) gm/dl Albumin 3.5 (3.4-5.0) gm/dl Globulin 2.7 (2.5-4.0) gm/dl Albumin/Globulin Ratio 1.3 (0.9-2)
[2022-10-20] MEDS: CIPROFLOXACIN / D5W 400 MG/200 ML BAG IV SCH (11:06)
[2022-10-20] MEDS ORDERED: POLYETHYLENE (MIRALAX) 17 GM PACK PO ONE (12:00)
[2022-10-20] MEDS: DULoxetine HCL 20 MG CAP PO SCH (12:37)
[2022-10-20] MEDS: ACETAMINOPHEN 325 MG TAB PO PRN (12:37)
[2022-10-20 15:18] VITALS: PULSE 99; TEMP 98.8; O2SAT 95
[2022-10-20 15:55] VITALS: BP 115/81
--- NOTE | 2022-10-20 16:58 | Surgery Progress Note ---
Date of Service October 20, 2022 Assessment & Plan (1) Acute perforated appendicitis: Plan: POD # 10 s/p laparoscopic appendectomy for perforated appendicitis with appendicolith afebrile, vss postop pain controlled precious drain with serous output Leukocytosis resolved, culture E. coli + SBO likely secondary to adhesions - tolerating advanced diet but slow return of bowel function, hx of constipation at baseline for years. Plan: continue soft diet continue Miralax daily will add another dose at noon Colace BID d/c IV fluids since taking PO well continue IV abx until discharge encouraged ambulation IV Toradol for breakthrough pain as needed, discontinue IV dilaudid. PO Percocet and Tylenol as needed. Dr. Lara has seen and examined pt, agrees with above. 10/20/2022 4:[address] Lara, doing fine, passed BM, tolerated diet, pt wants to go home today, post care instruction was given. psychiatrist Kalli Alvarado saw pt yesterday, asked me to prescript Cymbalta 20 mg daily with option to increase back to 40 mg daily in 5 days if she's tolerating it well. I also instructed pt , she should call psychiatrist if anything concern, pt understood, I answered all questions, F/U me 1 weeks, keep PRECIOUS drainage, empty PRECIOUS every day to record out put. Admission and Anticipated Discharge Date Admission Date: October 10, 2022 Supervising Physician Co-Signing Physician Notes I performed a history and physical examination of the patient today, including specifically on physical exam - soft abdomen. I have discussed the patient's management with the advanced practitioner. Please refer to the nurse practitioner's note for the documented findings and plan of care. Admitted with perforated appendicitis, s/p lap Appendectomy, now with post operative N/V. Labs with hypokalemia and leukocytosis. I reviewed her KUB which has dilated bowel loops. Stomach is not large. Likely postoperative ileus. Please obtain CT scan of the abdomen with low volume PO contrast as tolerated to r/o SBO. Correct Potassium as she likely has postoperative ileus. Minimize the use of Opioids. If CT scan shows no SBO we can consider Relistor. PRN Antiemetics. Subjective feeling okay, tired this morning passed only small amount of gas last night and this morning, last bowel movement was yesterday nothing so far today tolerating advancement of diet but does feel full and slightly bloated around 1 pm feels the gas moving but then doesn't feel like it is going h walking hallway no vomiting 10/20/2022 4:[address] Lara pt feels much better, just passed BM, pt tolerated diet, no nausea, no vomiting, no fever, PRECIOUS 160 clear color Physical Exam Constitutional: WD/WN, vitals as above Eyes: PERRL, conjunctivae normal, anicteric sclerae Neck: trachea midline, no thyromegaly Respiratory: normal respiratory effort, lungs clear to auscultation Cardiovascular: RRR, no murmur, no edema Gastrointestinal (Abdomen): soft, NT, Nd, all incisions intact, no redness, LP intact. Musculoskeletal: no cyanosis or clubbing, extremities motor strength 5/5 Skin: no rashes, warm and dry Neurologic: patellar DTR's 2+ bilat, sensation intact Psychiatric: A+Ox3, euthymic affect Results & Data Vital Signs (Past 12 Hours) Vital Signs Temp Pulse Pulse Resp BP BP Pulse Ox 10/20/22 15:55 115/81 10/20/22 15:18 37.1 C 99 H 16 103/73 95 10/20/22 09:30 36.3 C L 102 H 16 110/64 98 10/20/22 07:45 36.7 C 84 16 116/80 97 O2 Del Method 10/20/22 15:55 10/20/22 15:18 Room Air 10/20/22 09:30 Room Air 10/20/22 07:45 Room Air Laboratory Results Abnormal lab results 10/20/22 10/20/22 Range/Units 07:20 07:20 Plt Count 424 H (130-400) K/uL Neut # (Auto) 7.95 H (1.40-6.50) K/uL Mcminn # (Auto) 0.61 H (0.11-0.59) K/uL BUN 3 L (6-23) mg/dl BUN/Creatinine Ratio 4.5 L (10-20) Glucose 104 H (70-99(Fasting)) mg/dl
--- NOTE | 2022-10-21 05:11 | Discharge Summary (DS) ---
DATE OF ADMISSION: 10/10/2022 DATE OF DISCHARGE: 10/20/2022 ADMISSION DIAGNOSIS: Perforated acute appendicitis. DISCHARGE DIAGNOSIS: Perforated acute appendicitis. OPERATION: Laparoscopic appendectomy. SURGEON: Brittany Lara MD DETAILS OF DISCHARGE SUMMARY: This is a 22-year-old female who presented to the ED with acute abdomi nal pain. The patient had a CT scan diagnosis of acute appendicitis with perforation and I took the patient to the OR, we did laparoscopic appendectomy with JAE drainage. During the OR, we found that th e patient had significant acute inflammation of appendix with perforation. After the procedure, and the patient tolerated the procedure well, transferred to regular floor. For the first couple of days, the patient was doing fine; however, after a couple of days later, the patient could not pass gas or pass the stool. We did KUB. The patient had bowel obstruction and als o we repeated a CT scan, confirmed a small bowel obstruction, so we did conservative treatment, n.p.o ., IV fluid, controlled the pain and gave her IV antibiotic to treat the infection and later on, the patient passed gas and passed stool, and the patient walked around down the hallway. Also, patient t olerated a full liquid diet over the last 2 days. The patient had no nausea, no vomiting and again to day passed the stool. PHYSICAL EXAMINATION: VITAL SIGNS: Temperature is 37.1, respiratory rate 16, heart rate 99, blood pressure 115/81, O2 satu ration 95% on room air. GENERAL: The patient is alert, awake, oriented x3. HEENT: Within normal limitation. NEUROLOGIC: Intact. CHEST: Bilateral lung sounds clear. HEART: Normal S1 and S2. No murmur. ABDOMEN: Soft, no tenderness, no distention. Bowel sounds positive. All incisions intact. No redn ess. JAE drainage also was intact. EXTREMITIES: All extremities with no edema. Today, we checked the patient's labs which show WBC 10,000, otherwise all of the were normal. The patient wanted to go home today. I gave the patient postoperative care instruction, the patient understands. I will follow up the patient in 2 weeks. Also, instructed the patient that the patient should come back to hospital ER if the patient develops any severe pain, nausea, vomiting, temperatu re or fever. The patient understands. Job ID: [id number]
== END 2022-10-20 18:46 | disposition home or self-care (01) | DRG 339 ==
LOC: ED 14:59 → 3W 18:45